=== PATIENT | female | born 1950 | race Caucasian/White ===

== ENCOUNTER → 2016-05-30 | Outpatient (CLI) | payer OTHER, MEDICAID ==
[~2016-05-30] MED LIST: ACET500T2 OR; ADV250INH INH; ALBU0.63 IN; ALBU17IN INH; AMIT25TA2 OR; ASPI81TA45 OR; CALCCHW12; CARA1TAB2 PO; CYMB60CA3 PO; DULE200A IN; DULO30CA PO; E-Z PAQUE 60% w/v SUSP 355ML BOTTLE As Ordered ONE; E-Z-GAS II EFFERVESCENT PACKET (SODIUM BICARB./CITRIC ACID/SIMETHICONE) As Ordered ONE; E-Z-HD 98% w/w 340GM SUSP BTL As Ordered ONE; INHALER; LEVO500T32 PO; LIDO3CRE14 TOP; METO25TA2 OR; MIRA3350 PO; MIRALEX; NEUR100C OR; OMEP20TA7 OR; PANT40TA2 PO; PLAV75TA2 OR; PRIL20CA; RALO1TAB PO; RAMI25CA OR; RANITAB PO; RISE30TA; SIMV40TA2 PO; SOMA350T PO; SYMB80AE INH; TIZA4CAP PO; TIZA4TAB OR; TRAM50TA2; TRAM50TA2 OR; TRAZ50TA4 PO; VENL75TA2; VICO5TAB PO; VITA200028 PO; VOLT1GEL EX; ZOLO20CO PO; [UNRECOGNIZED DRUG - OTHER] INH; biofreeze TOP; spiriva INH
--- NOTE | 2016-05-30 16:09 | REP ---
ESOPHAGRAM: The procedure was performed under the direct supervision of Dr. Matthews. The images were reviewed with Dr. Matthews. . A single view PA chest x-ray is submitted as a capacity management specialist film. There is no change compared to a previous chest x-ray performed on 07/25/2014. Liquid barium was administered in the erect and prone oblique positions. During the oral and pharyngeal stage of deglutition there is penetration. During esophageal transport there are tertiary waves demonstrated. The esophagus is torturous /foreshortened due to marked kyphosis. There is no evidence of esophagitis, stricture, or mucosal ring. There is a hiatal hernia present. There is gastroesophageal reflux demonstrated to the level of the paty. IMPRESSION: 1. There is laryngeal penetration. 2. The esophagus is torturous/foreshortened due to marked kyphosis. 3. Esophageal dysmotility. 4. There is a hiatal hernia present. There is gastroesophageal reflux demonstrated to the level of the paty. 1 minute 27 seconds of fluoroscopic time was utilized for this procedure. Reviewed by EVY Calderon 05/30/2016 05:00 PEdited and Signed by Stefano Matthews MD 05/31/2016 03:34 P
== END ==
LOC: M RAD 08:21
PROVIDERS: ATTEND Otolaryngology
DX: K22.4 Dyskinesia of esophagus (principal); K44.9 Diaphragmatic hernia without obstruction or gangrene; K21.9 Gastro-esophageal reflux disease without esophagitis

== ENCOUNTER → 2016-06-16 | Day surgery (SDC) | payer OTHER, MEDICAID ==
[~2016-06-16] VITALS: Ht 152.4 cm; Wt 39.0 kg
[~2016-06-16] MED LIST changes: +ALTA1CAP2 PO; +ASPI81TA85 PO; +DESFLURANE 240 ML INHALANT As Ordered ONE; -E-Z PAQUE 60% w/v SUSP 355ML BOTTLE As Ordered ONE; -E-Z-GAS II EFFERVESCENT PACKET (SODIUM BICARB./CITRIC ACID/SIMETHICONE) As Ordered ONE; -E-Z-HD 98% w/w 340GM SUSP BTL As Ordered ONE; +EPINEPHrine 1MG/ML INJ 30ML MD-VIAL As Ordered ONE; +GLYCOPYRROLATE INJ 0.2 MG/ML 2 ML VIAL As Ordered ONE; +LIDOCAINE 2% INJ 100 MG/5 ML SDV (FOR ANES.) As Ordered ONE; +LIDOCAINE W/EPINEPHRINE 1% 20ML VIAL As Ordered ONE; +LR 1,000 ML IV SCH; +MEPERIDINE INJ 25 MG/ML VIAL (J2175) IV PRN; +METO25TA74 PO; +METOCLOPRAMIDE INJ 10MG/2ML VIAL (J2765) As Ordered ONE; +METOCLOPRAMIDE INJ 10MG/2ML VIAL (J2765) IV PRN; +MIDAZOLAM INJ 2 MG/2 ML VIAL (J2250) As Ordered ONE; +NEOSTIGMINE 1MG/ML 5 ML SYRINGE (J2710) As Ordered ONE; +ONDANSETRON 4MG/2ML VIAL (J2405) As Ordered ONE; +ONDANSETRON 4MG/2ML VIAL (J2405) IV PRN; +OXYMETAZOLINE NASAL SPRAY (AFRIN) As Ordered ONE; +PERCOCET 5MG/325MG TAB PO PRN; +PROPOFOL 200 MG/20 ML VIAL As Ordered ONE; +ROCURONIUM BROMIDE 50 MG/5 ML VIAL As Ordered ONE; +TIZA4CAP3 PO; +TRAM50TA2 PO; +acetaminophen PO; +dexameTHASONE 4 MG/ML 1ML VIAL (J1100) IV ONE; +ePHEDrine SULFATE 25 MG/5 ML(5MG/ML) SYRINGE As Ordered ONE; +fentaNYL 100 MCG/2 ML INJECTION (J3010) As Ordered ONE; +fentaNYL 100 MCG/2 ML INJECTION (J3010) IV PRN
[2016-06-16 14:50] VITALS: BP 119/55
--- NOTE | 2016-06-21 06:03 | RO ---
DATE OF PROCEDURE: 06/16/2016 PREOPERATIVE DIAGNOSIS: Fullness of the left oropharynx. POSTOPERATIVE DIAGNOSIS: Fullness of the left oropharynx. PROCEDURE PERFORMED: Direct laryngoscopy with biopsy of the left oropharynx. SURGEON: Dr. Derrick Justin DESPATCHING AND RECEIVING CLERK: ANESTHESIA: General. CLINICAL PREAMBLE: This 65-year-old woman presented to the office with history of significant weight loss as well as abnormal CT scan of the neck showing fullness of the left oropharynx. Management options including biopsy of the left oropharynx have been discussed. Patient understood and consented to the procedure. DESCRIPTION OF PROCEDURE: Patient was identified in preoperative holding and brought to the operating room in stable condition. In supine position on the operating table, patient received general anesthesia followed by orotracheal intubation without incident. Due to significant kyphosis, patient had multilayer of bed sheets done at headrest to ensure proper support for the neck. A decision was made to perform direct laryngoscopy without the suspension portion. Bimanual palpation of the oral tongue, base of tongue, buccal mucosa, posterior and lateral pharyngeal wall showed no discrete nodule. The upper alveolus was protected using wet 4 x 4 sponge. The Dedo-Pilling laryngoscope was introduced into the oral cavity. Visualization of the mucosa of the oral cavity, oropharynx, hypopharynx, supraglottis, pyriform sinuses, and the glottis showed no evidence of mucosal ulceration. Redundant mucosa was noted over the left oropharyngeal area. Biopsy was performed of the left oropharynx. The specimens were sent to pathology in formalin solution. Hemostasis was achieved cottonoid pledgets soaked in 1:1000 epinephrine. Complete hemostasis was observed at the end of the case. Estimated blood loss was less than 1 mL. Sponge and instrument counts were correct at the end of the procedure. No complication was encountered. General anesthesia was reversed, and patient was extubated and brought to the recovery room in stable condition.
== END | disposition home or self-care (01) ==
LOC: M SDC 11:11
PROVIDERS: ATTEND Otolaryngology
DX: R22.1 Localized swelling, mass and lump, neck (principal); R63.4 Abnormal weight loss; R93.3 Abnormal findings on diagnostic imaging of other parts of digestive tract; J31.0 Chronic rhinitis; R13.10 Dysphagia, unspecified; K21.9 Gastro-esophageal reflux disease without esophagitis; E66.9 Obesity, unspecified; I25.2 Old myocardial infarction; I10 Essential (primary) hypertension; K59.00 Constipation, unspecified; D64.9 Anemia, unspecified; R29.898 Other symptoms and signs involving the musculoskeletal system; J44.9 Chronic obstructive pulmonary disease, unspecified; M81.0 Age-related osteoporosis without current pathological fracture; R06.83 Snoring; Z79.899 Other long term (current) drug therapy; Z79.82 Long term (current) use of aspirin; Z90.710 Acquired absence of both cervix and uterus
CPT/HCPCS: 31535; 88305; 96374; J1100; J2250; J2405; J2710; J2765; J3010

== ENCOUNTER → 2016-08-16 | Outpatient (CLI) | payer OTHER, MEDICAID ==
[~2016-08-16] MED LIST changes: -DESFLURANE 240 ML INHALANT As Ordered ONE; +DOCQ100C PO; -EPINEPHrine 1MG/ML INJ 30ML MD-VIAL As Ordered ONE; +EVIS1TAB PO; -GLYCOPYRROLATE INJ 0.2 MG/ML 2 ML VIAL As Ordered ONE; -LIDOCAINE 2% INJ 100 MG/5 ML SDV (FOR ANES.) As Ordered ONE; -LIDOCAINE W/EPINEPHRINE 1% 20ML VIAL As Ordered ONE; +LINZ145C PO; -LR 1,000 ML IV SCH; -MEPERIDINE INJ 25 MG/ML VIAL (J2175) IV PRN; +METO-346 PO; -METOCLOPRAMIDE INJ 10MG/2ML VIAL (J2765) As Ordered ONE; -METOCLOPRAMIDE INJ 10MG/2ML VIAL (J2765) IV PRN; -MIDAZOLAM INJ 2 MG/2 ML VIAL (J2250) As Ordered ONE; -NEOSTIGMINE 1MG/ML 5 ML SYRINGE (J2710) As Ordered ONE; -ONDANSETRON 4MG/2ML VIAL (J2405) As Ordered ONE; -ONDANSETRON 4MG/2ML VIAL (J2405) IV PRN; -OXYMETAZOLINE NASAL SPRAY (AFRIN) As Ordered ONE; -PERCOCET 5MG/325MG TAB PO PRN; +POLY33502 PO; -PROPOFOL 200 MG/20 ML VIAL As Ordered ONE; -ROCURONIUM BROMIDE 50 MG/5 ML VIAL As Ordered ONE; +TRAZ100T4 PO; -dexameTHASONE 4 MG/ML 1ML VIAL (J1100) IV ONE; -ePHEDrine SULFATE 25 MG/5 ML(5MG/ML) SYRINGE As Ordered ONE; -fentaNYL 100 MCG/2 ML INJECTION (J3010) As Ordered ONE; -fentaNYL 100 MCG/2 ML INJECTION (J3010) IV PRN
--- NOTE | 2016-09-02 00:32 | ECWPNPC ---
PATIENT NAME: MARY PEÑA : 1950 GENDER: FEMALE VISIT DATE: 08/16/2016 DISCHARGE DATE: 08/16/16 0947 VISIT LOCKED DATE TIME: PHYSICIAN: LISA FULLER RESOURCE: LISA UFLLER REASON FOR APPOINTMENT 1. BACK HISTORY OF PRESENT ILLNESS HISTORY OF PRESENT ILLNESS: PAIN THE PATIENT DESCRIBES THE PAIN... FALL RISK SCREENING: SCREENING :NO FALLS IN THE PAST YEAR TODAY'S VISIT: NOTES: RATES PAIN LEVEL TODAY 10. IS S/P RIGHT SIJ INJECTION COMPLETED ON 03/01/16. THIS WAS VERY HELPFUL AND PAIN WAS MARKEDLY IMPROVED X5 MONTHS. IS NOW HAVING PAIN IN RIGHT HIP AND BUTTUCK AND ALSO IN SHOULDER BLADES AND ACROSS SHOULDERS. . CURRENT MEDICATIONS TAKING CYMBALTA 60 MG CAPSULE DELAYED RELEASE PARTICLES 1 CAPSULE ORALLY ONCE A DAY TAKING METOPROLOL SUCCINATE ER 25 MG TABLET EXTENDED RELEASE 24 HOUR 1/2 TABLET ORALLY BID TAKING PANTOPRAZOLE SODIUM 40 MG TABLET DELAYED RELEASE 1 TABLET ORALLY ONCE A DAY TAKING RALOXIFENE HCL 60 MG TABLET 1 TABLET ORALLY ONCE A DAY TAKING RAMIPRIL 2.5 MG CAPSULE 1 CAPSULE ORALLY ONCE A DAY TAKING ASPIR-81 81 MG TABLET DELAYED RELEASE 1 TABLET ORALLY ONCE A DAY TAKING TRAMADOL HCL 50 MG TABLET 1-2 TABLET NEEDED ORALLY EVERY 6 HRS PRN PAIN MDD =6 TAKING LINZESS 145 MCG CAPSULE 1 CAPSULE ORALLY ONCE A DAY TAKING TIZANIDINE HCL 4 MG TABLET 1/2 -1 TABLET NEEDED ORALLY EVERY 6 HOURS NEED FOR SPASM TAKING TRAZODONE HCL 100 MG TABLET 1 TABLET AT BEDTIME ORALLY ONCE A DAY TAKING MIRALAX - POWDER 1 PACKET MIXED WITH 8 OUNCES OF FLUID ORALLY BID TAKING VITAMIN D 1000 UNIT TABLET 1 TABLET ORALLY BID NOT-TAKING ERGOCALCIFEROL 03369 UNIT CAPSULE 1 CAPSULE ORALLY WEEKLY, NOTES: 03/01 4AM NOT-TAKING CARAFATE 1 GM TABLET 1 TABLET ON AN EMPTY STOMACH ORALLY TWICE A DAY, NOTES: 03/01 4AM NOT-TAKING COLACE 100 MG CAPSULE 1 CAPSULE NEEDED ORALLY ONCE A DAY, NOTES: 03/01 4AM NOT-TAKING STIOLTO RESPIMAT 2.5-2.5 MCG/ACT AEROSOL SOLUTION 2 PUFFS INHALATION ONCE A DAY NOT-TAKING DULERA 200-5 MCG/ACT AEROSOL 2 PUFFS INHALATION TWICE A DAY, NOTES: 0400 NOT-TAKING SIMVASTATIN 20 MG TABLET 1 TABLET IN THE EVENING ORALLY ONCE A DAY, NOTES: 07/06/15 MEDICATION LIST REVIEWED AND RECONCILED WITH THE PATIENT PAST MEDICAL HISTORY GERD OSTEOPOROSIS HYPERLIPID CHRONIC PAIN CONSTIPATION ALLERGIES N.K.D.A. REVIEW OF SYSTEMS FOLLOW-UP ROS: PSYCHOLOGY: SLEEP DISTURBANCE - CONTINUES TO HAVE DIFFICULTY WITH THIS AREA . REVIEWED BY: PROVIDER: LISA AMOR . CONSTITUTIONAL: ANY CHANGE IN YOUR MEDICAL CONDITION? NO . CHILLS NO . FEVER NO . INFECTION: DO YOU HAVE NEW INFECTIONS? NO . DO YOU HAVE HISTORY OF MRSA? NO . MUSCULOSKELETAL: ANY NEW PATTERNS OF PAIN OR NUMBNESS? NO . GASTROENTEROLOGY: GENERAL DR VERDUZCO TO DO UPPER AND LOWER ENDOSCOPY ON 08/19/16 . ANY NEW CHANGE IN BOWEL CONTROL? YES, CONSTIPATION . GENITOURINARY: ANY NEW CHANGE IN BLADDER CONTROL? NO . IS THERE A CHANCE YOU COULD BE ? NO . HEMATOLOGY/LYMPH: DO YOU TAKE ANY BLOOD THINNERS? (FOR EXAMPLE- COUMADIN, PLAVIX, AGGRENOX, PLATEL, PRADAXA, OR XARELTO) NO . WHEN WAS YOUR LAST DOSE? DATE: TIME: . NEUROLOGY: HAVE YOU FALLEN IN THE PAST 6 MONTHS? YES . ANY NEW EXTREMITY NUMBNESS OR WEAKNESS? NO . CARDIOLOGY: DO YOU HAVE A PACEMAKER OR DEFIBRILLATOR? NO . RESPIRATORY: HAVE YOU BEEN SICK IN THE PAST WEEK? NO . FEVER NO . FLU LIKE SYMPTOMS? NO . COUGH NO . INTEGUMENTARY: DO YOU HAVE ANY RASHES OR OPEN SORES? NO . ALLERGIC/IMMUNO: ARE YOU ALLERGIC TO SHELLFISH OR IV DYE? NO . ANY NEW ALLERGIES? NO . PSYCHIATRIC: DO YOU HAVE THOUGHTS OF HURTING YOURSELF OR SOMEONE ELSE? NO . ARE YOU ABUSED, NEGLECTED, OR IN AN UNSAFE ENVIRONMENT? NO . ENDOCRINOLOGY: ARE YOU DIABETIC? NO . OTHER: DO YOU NEED ANY PRESCRIPTIONS? YES . IF YES, PLEASE LIST: TRAZODONE, TRAMADOL, AND TIZANIDINE . ANY NEW PROBLEMS WITH YOUR MEDICATIONS? NO . WHEN DID YOU LAST EAT? ____ . WHEN DID YOU LAST DRINK? ____ . WHAT DID YOU LAST DRINK? ____ . NAME OF PERSON DRIVING YOU HOME? ____ . DO YOU HAVE ANY OTHER QUESTIONS OR CONCERNS NO . ENT: DIFFICULTY SWALLOWING WAS SEEN BY DR PRAKASH - FOUND TO HAVE NON-CANCEROUS MASS IN THROAT.. IS HAVING SOME CHOKING . VITAL SIGNS WT 92.4 LBS, HT 56 IN, BMI 20.71 INDEX, BP 111/69 MM HG, HR 66 /MIN, RR 16 /MIN, TEMP 99.3 F, OXYGEN SAT % 96%, NA INITIALS TL 0856, REVIEWED BY: JOSE LUIS. EXAMINATION GENERAL EXAMINATION: GENERAL APPEARANCE:SIGNIFICANT HEIGHT LOSS. PALE. PSYCHALERT , ORIENTED X 3 , APPROPRIATE MOOD AND AFFECT . CHEST:SIGNIFICANT THORACIC KYPHOSIS. LUNGS:CLEAR TO AUSCULTATION BILATERALLY, INTERMITTANT COUGH, , DIMINISHED BREATH SOUNDS AT BASES, NO WHEEZES OR CRACKLES. MUSCULOSKELETAL:EXQUISITE TENDERNESS OVER RIGHT SIJ. TRIGGER POINTS AND TIGHT FIBROUS BANDS OVER SHOULDER GIRDLE AND AT BASE OF CERVICAL SPINE. RISES EASILY TO STANDING POSITION. POSTURE STOOPED. GAIT WIDE BASED, ANTALGIC. EXTREMITIES:NO EDEMA. ASSESSMENTS MYALGIA - M79.1 (PRIMARY) SACROILIITIS, NOT ELSEWHERE CLASSIFIED - M46.1 TREATMENT MYALGIA REFILL TRAMADOL HCL TABLET, 50 MG, 1-2 TABLET NEEDED, ORALLY, EVERY 6 HRS PRN PAIN MDD =6, 30 DAY(S), 180, REFILLS 3 REFILL TIZANIDINE HCL TABLET, 4 MG, 1/2 -1 TABLET NEEDED, ORALLY, EVERY 6 HOURS NEED FOR SPASM, 30 DAY(S), 85, REFILLS 5 REFILL TRAZODONE HCL TABLET, 100 MG, 1 TABLET AT BEDTIME, ORALLY, ONCE A DAY, 30 DAY(S), 30, REFILLS 5 TRIGGER POINT 3 + LISA ROBLES 08/16/2016 9:43:51 AM > TRIGGER POINTS - NECK AND SHOULDER AREAS NOTES: CONTINUE CURRRENT MEDS. PROCEDURE CODES FA211 ESTABILISHED PATIENT [facility] CHARGE DISPOSITION & COMMUNICATION FOLLOW UP AFTER INJECTION (REASON: TRIGGER POINTS - NECK AND SHOULDER AREAS) ELECTRONICALLY SIGNED BY BRITTANIE DUNAWAY ON 09/01/2016 AT 05:43 PM EDT DISCLAIMER : THIS IS A VISIT SUMMARY EXTRACTED FROM THE [email or web address] CHART. IT IS NOT A COPY OF THE [email or web address] PROGRESS NOTE. RIZWANA
== END ==
LOC: M PAIN 09:00
PROVIDERS: ATTEND Nurse Practitioner Family
DX: M79.1 Myalgia (principal); M46.1 Sacroiliitis, not elsewhere classified; K21.9 Gastro-esophageal reflux disease without esophagitis; M85.80 Other specified disorders of bone density and structure, unspecified site; E78.5 Hyperlipidemia, unspecified; K59.00 Constipation, unspecified; Z79.82 Long term (current) use of aspirin; Z79.891 Long term (current) use of opiate analgesic; Z79.899 Other long term (current) drug therapy

== ENCOUNTER → 2016-08-19 | Outpatient (CLI) | payer OTHER, MEDICAID ==
[~2016-08-19] VITALS: Ht 137.2 cm; Wt 41.7 kg
[~2016-08-19] MED LIST changes: +LIDOCAINE 2% INJ 100 MG/5 ML SDV (FOR ANES.) As Ordered ONE; +NS 1,000 ML IV ONE; +PROPOFOL 200 MG/20 ML VIAL As Ordered ONE; +fentaNYL 100 MCG/2 ML INJECTION (J3010) As Ordered ONE
--- NOTE | 2016-08-19 10:05 | ROOR ---
Patient Name: Padmini Devine Procedure Date: 08/19/2016 9:20 AM Date of : 1950 Age: 66 Room: [facility] Gender: Female Note Status: Finalized Procedure: Upper GI endoscopy Indications: Dysphagia Providers: Jerry GUPTA MD Referring MD: Edouard Dahl MD Requesting Provider: Medicines: Monitored Anesthesia Care Complications: No immediate complications. Procedure: Pre-Anesthesia Assessment: - The heart rate, respiratory rate, oxygen saturations, blood pressure, adequacy of pulmonary ventilation, and response to care were monitored throughout the procedure. The Endoscope was introduced through the mouth, and advanced to the second part of duodenum. The upper GI endoscopy was accomplished without difficulty. The patient tolerated the procedure well. Findings: There were esophageal mucosal changes consistent with long-segment Duong's esophagus present in the lower third of the esophagus. The maximum longitudinal extent of these mucosal changes was 4 cm in length. Mucosa was biopsied with a cold forceps for histology randomly at intervals of 1 cm in the lower third of the esophagus. A total of 4 specimen bottles were sent to pathology. The examined esophagus was significantly tortuous. No endoscopic abnormality was evident in the esophagus to explain the patient's complaint of dysphagia. It was decided, however, to proceed with dilation at the cricopharyngeus. The scope was withdrawn. Dilation was performed with a Gabriel dilator with no resistance at 54 Fr. The dilation site was examined following endoscope reinsertion and showed no change. A large hiatal hernia was present. The exam of the stomach was otherwise normal. The examined duodenum was normal. Impression: - Esophageal mucosal changes consistent with 4 cm long-segment Duong's esophagus (from 28 cm to 23 cm). Smooth, without inflammation or nodularity. Biopsied. - Tortuous esophagus. Large hiatal hernia with shortened esophagus. GE junction at 28 cm. - Normal examined duodenum. - No endoscopic esophageal abnormality to explain patient's dysphagia. Esophagus dilated cricopharyngeus with 54 F gabriel dilator. Recommendation: - Use Prilosec (omeprazole) 40 mg PO BID indefinitely. - Telephone endoscopist for pathology results in 2 weeks. - Repeat upper endoscopy in 3 years for surveillance. Jerry Gupta MD Jerry GUPTA MD 08/19/2016 10:04:59 AM This report has been signed electronically. Number of Addenda: 0 Note Initiated On: 08/19/2016 9:20 AM Estimated Blood Loss: Estimated blood loss: none.
--- NOTE | 2016-08-19 10:09 | ROOR ---
Patient Name: Padmini Devine Procedure Date: 08/19/2016 9:21 AM Date of : 1950 Age: 66 Room: [facility] Gender: Female Note Status: Finalized Procedure: Colonoscopy Indications: Weight loss Providers: Jerry GUPTA MD Referring MD: Edouard Dahl MD Requesting Provider: Medicines: Monitored Anesthesia Care Complications: No immediate complications. Procedure: Pre-Anesthesia Assessment: - The heart rate, respiratory rate, oxygen saturations, blood pressure, adequacy of pulmonary ventilation, and response to care were monitored throughout the procedure. The Colonoscope was introduced through the anus and advanced to the terminal ileum, with identification of the appendiceal orifice and IC valve. The colonoscopy was performed without difficulty. The patient tolerated the procedure well. The quality of the bowel preparation was unsatisfactory. Findings: The perianal and digital rectal examinations were normal. The exam was otherwise normal throughout the examined colon. Impression: - Preparation of the colon was unsatisfactory.--several areas are inadequately visualized to r/o small polyps, however no major lesions seen, no large polyps or tumors seen in the entire colon. - No specimens collected. Recommendation: - Repeat colonoscopy in 1 year because the bowel preparation was suboptimal. Jerry Gupta MD Jerry GUPTA MD 08/19/2016 10:09:08 AM This report has been signed electronically. Number of Addenda: 0 Note Initiated On: 08/19/2016 9:21 AM Estimated Blood Loss: Estimated blood loss: none.
[2016-08-19 10:30] VITALS: BP 128/67
== END | disposition home or self-care (01) ==
LOC: M OPP 08:26
PROVIDERS: ATTEND Internal Medicine Gastroenterology
DX: R63.4 Abnormal weight loss (principal); R13.10 Dysphagia, unspecified; K22.8 Other specified diseases of esophagus; Q39.9 Congenital malformation of esophagus, unspecified; K44.9 Diaphragmatic hernia without obstruction or gangrene; R12 Heartburn; I25.2 Old myocardial infarction; M81.0 Age-related osteoporosis without current pathological fracture; Z78.0 Asymptomatic menopausal state; J44.9 Chronic obstructive pulmonary disease, unspecified; I25.10 Atherosclerotic heart disease of native coronary artery without angina pectoris; F17.210 Nicotine dependence, cigarettes, uncomplicated; Z79.82 Long term (current) use of aspirin; Z79.899 Other long term (current) drug therapy; Z80.9 Family history of malignant neoplasm, unspecified
CPT/HCPCS: 43239; 43450; 45378; 88305; J3010

== ENCOUNTER → 2016-08-24 | Outpatient (CLI) | payer OTHER, MEDICAID ==
[~2016-08-24] MED LIST changes: +BUPIVACAINE HCL 0.25% 10 ML VIAL As Ordered ONE; +BUPIVACAINE HCL 0.25% 30 ML VIAL As Ordered ONE; -LIDOCAINE 2% INJ 100 MG/5 ML SDV (FOR ANES.) As Ordered ONE; -NS 1,000 ML IV ONE; -PROPOFOL 200 MG/20 ML VIAL As Ordered ONE; +TRIAMCINOLONE ACETONIDE SUSP 40 MG/ML VIAL (J3301) As Ordered ONE; -fentaNYL 100 MCG/2 ML INJECTION (J3010) As Ordered ONE; +oxyCODONE 5MG TAB As Ordered ONE
--- NOTE | 2016-09-01 23:53 | ECWPNPC ---
PATIENT NAME: MARY PEÑA : 1950 GENDER: FEMALE VISIT DATE: 08/24/2016 DISCHARGE DATE: 08/24/16 1423 VISIT LOCKED DATE TIME: PHYSICIAN: MATA JOHNS RESOURCE: MATA JOHNS REASON FOR APPOINTMENT 1. NECK AND SHOULDER HISTORY OF PRESENT ILLNESS HISTORY OF PRESENT ILLNESS: PAIN THE PATIENT DESCRIBES THE PAIN... FALL RISK SCREENING: SCREENING :NO FALLS IN THE PAST YEAR CURRENT MEDICATIONS TAKING CYMBALTA 60 MG CAPSULE DELAYED RELEASE PARTICLES 1 CAPSULE ORALLY ONCE A DAY, NOTES: 08/24/16529 TAKING METOPROLOL SUCCINATE ER 25 MG TABLET EXTENDED RELEASE 24 HOUR 1/2 TABLET ORALLY BID, NOTES: 08/24/16529 TAKING RALOXIFENE HCL 60 MG TABLET 1 TABLET ORALLY ONCE A DAY, NOTES: 08/24/16529 TAKING RAMIPRIL 2.5 MG CAPSULE 1 CAPSULE ORALLY ONCE A DAY, NOTES: 08/24/16529 TAKING ASPIR-81 81 MG TABLET DELAYED RELEASE 1 TABLET ORALLY ONCE A DAY, NOTES: 08/24/16529 TAKING LINZESS 145 MCG CAPSULE 1 CAPSULE ORALLY ONCE A DAY, NOTES: 08/22/16 TAKING MIRALAX - POWDER 1 PACKET MIXED WITH 8 OUNCES OF FLUID ORALLY BID, NOTES: 08/24/16529 TAKING VITAMIN D 1000 UNIT TABLET 1 TABLET ORALLY BID, NOTES: 08/24/16529 TAKING TRAMADOL HCL 50 MG TABLET 1-2 TABLET NEEDED ORALLY EVERY 6 HRS PRN PAIN MDD =6, NOTES: 08/24/1674100 TAKING TIZANIDINE HCL 4 MG TABLET 1/2 -1 TABLET NEEDED ORALLY EVERY 6 HOURS NEED FOR SPASM, NOTES: 08/24/16529 TAKING TRAZODONE HCL 100 MG TABLET 1 TABLET AT BEDTIME ORALLY ONCE A DAY, NOTES: 08/23/16 2100 TAKING OMEPRAZOLE 40 MG CAPSULE DELAYED RELEASE 1 CAPSULE ORALLY BID, NOTES: 08/24/16529 NOT-TAKING ERGOCALCIFEROL 99635 UNIT CAPSULE 1 CAPSULE ORALLY WEEKLY, NOTES: 03/01 4AM NOT-TAKING CARAFATE 1 GM TABLET 1 TABLET ON AN EMPTY STOMACH ORALLY TWICE A DAY, NOTES: 03/01 4AM NOT-TAKING COLACE 100 MG CAPSULE 1 CAPSULE NEEDED ORALLY ONCE A DAY, NOTES: 03/01 4AM NOT-TAKING STIOLTO RESPIMAT 2.5-2.5 MCG/ACT AEROSOL SOLUTION 2 PUFFS INHALATION ONCE A DAY NOT-TAKING DULERA 200-5 MCG/ACT AEROSOL 2 PUFFS INHALATION TWICE A DAY, NOTES: 0400 NOT-TAKING SIMVASTATIN 20 MG TABLET 1 TABLET IN THE EVENING ORALLY ONCE A DAY, NOTES: 07/06/15 DISCONTINUED PANTOPRAZOLE SODIUM 40 MG TABLET DELAYED RELEASE 1 TABLET ORALLY ONCE A DAY MEDICATION LIST REVIEWED AND RECONCILED WITH THE PATIENT PAST MEDICAL HISTORY GERD OSTEOPOROSIS HYPERLIPID CHRONIC PAIN CONSTIPATION ALLERGIES N.K.D.A. REVIEW OF SYSTEMS REVIEWED BY: PROVIDER: . CONSTITUTIONAL: ANY CHANGE IN YOUR MEDICAL CONDITION? NO . CHILLS NO . FEVER NO . INFECTION: DO YOU HAVE NEW INFECTIONS? NO . DO YOU HAVE HISTORY OF MRSA? NO . MUSCULOSKELETAL: ANY NEW PATTERNS OF PAIN OR NUMBNESS? NO . GASTROENTEROLOGY: ANY NEW CHANGE IN BOWEL CONTROL? YES, ON MIRALAX/ JUST HAD SCOPE DONE AND WILL FU WITH ESTATE PLANNING PAR[place]GAL . GENITOURINARY: ANY NEW CHANGE IN BLADDER CONTROL? NO . IS THERE A CHANCE YOU COULD BE ? NO . HEMATOLOGY/LYMPH: DO YOU TAKE ANY BLOOD THINNERS? (FOR EXAMPLE- COUMADIN, PLAVIX, AGGRENOX, PLATEL, PRADAXA, OR XARELTO) NO . WHEN WAS YOUR LAST DOSE? DATE: TIME: . NEUROLOGY: HAVE YOU FALLEN IN THE PAST 6 MONTHS? NO . ANY NEW EXTREMITY NUMBNESS OR WEAKNESS? NO . CARDIOLOGY: DO YOU HAVE A PACEMAKER OR DEFIBRILLATOR? NO . RESPIRATORY: HAVE YOU BEEN SICK IN THE PAST WEEK? NO . FEVER NO . FLU LIKE SYMPTOMS? NO . COUGH NO . INTEGUMENTARY: DO YOU HAVE ANY RASHES OR OPEN SORES? NO . ALLERGIC/IMMUNO: ARE YOU ALLERGIC TO SHELLFISH OR IV DYE? NO . ANY NEW ALLERGIES? NO . PSYCHIATRIC: DO YOU HAVE THOUGHTS OF HURTING YOURSELF OR SOMEONE ELSE? NO . ARE YOU ABUSED, NEGLECTED, OR IN AN UNSAFE ENVIRONMENT? NO . ENDOCRINOLOGY: ARE YOU DIABETIC? NO . OTHER: DO YOU NEED ANY PRESCRIPTIONS? NO . IF YES, PLEASE LIST: ____ . ANY NEW PROBLEMS WITH YOUR MEDICATIONS? NO . WHEN DID YOU LAST EAT? 0700 TODAY . WHEN DID YOU LAST DRINK? 1000 AM . WHAT DID YOU LAST DRINK? COFFEE . NAME OF PERSON DRIVING YOU HOME? GARETH . DO YOU HAVE ANY OTHER QUESTIONS OR CONCERNS NO . VITAL SIGNS WT 91.2 LBS, HT 56 IN, BMI 20.44 INDEX, BP 129/71 MM HG, HR 65 /MIN, RR 16 /MIN, TEMP 99.1 F, OXYGEN SAT % 96%, NA INITIALS TL 1301. ASSESSMENTS MYALGIA - M79.1 (PRIMARY) PROCEDURES PN TRIGGER POINT INJECTION WITH STEROIDS PRE PROCEDURE DIAGNOSIS 1. MYALGIA 2. PAIN AT BILATERAL SHOULDER AREA AND BILATERAL THORACIC AREA POST PROCEDURE DIAGNOSIS 1. MYALGIA 2. PAIN AT BILATERAL SHOULDER AREA AND BILATERAL THORACIC AREA PROCEDURE TRIGGER POINT INJECTION AT BILATERAL SHOULDER AREA AND BILATERAL THORACIC AREA SURGEON DR. MATA JOHNS BAFFLE MOUNTER NONE ANESTHESIA LOCAL PRE PROCEDURE NOTE THE PATIENT HAS A HISTORY OF CHRONIC PAIN AT THE RIGHT AND LEFT SHOULDER AREA AND RIGHT AND LEFT THORACIC AREA. I EVALUATE THE PATIENT AND REVIEWED THE CHART. THERE IS EVIDENCE OF BANDS OF TISSUE WITH RESTRICTION OF MOVEMENT AND PRESENCE OF TRIGGER POINT AT THE AFFECTED AREA. I WENT OVER THE RISKS, ALTERNATIVES, AND BENEFITS ASSOCIATED WITH THIS PROCEDURE. THE PATIENT WOULD LIKE TO PROCEED AND GIVE CONSENT TO PERFORMED THE PROCEDURE. THE PATIENT DENIES UNEXPLAINABLE WEIGHT LOSS, FEVER, CHILLS, OR NEW CHANGES IN URINARY OR BOWEL CONTROL DESCRIPTION OF PROCEDURE THE PATIENT WAS BROUGHT TO THE PROCEDURE ROOM AND PLACED IN THE SITTING POSITION. THE AREA WAS CLEANED WITH ALCOHOL. THE PROCEDURE WAS DONE USING ASEPTIC STERILE TECHNIQUE. I CHECKED LATERALITY AND THE LEVEL WHERE THE PROCEDURE WAS GOING TO BE PERFORMED WITH THE PATIENT AND THE SUPPORTING STAFF AT THE MOMENT OF THE TIME OUT IN THE PROCEDURE ROOM. USING A 25-GAUGE NEEDLE, TRIGGER POINTS WERE INJECTED AT THE RIGHT AND LEFT SHOULDER AREA AND RIGHT AND LEFT THORACIC AREA WITH A TOTAL OF 40 ML OF BUPIVACAINE 0.25% AND KENALOG 40 MG. THERE WAS NO EVIDENCE OF BLOOD, PARESTHESIA OR CEREBROSPINAL FLUID DURING THE PROCEDURE. THE PATIENT WAS SENT TO THE RECOVERY ROOM. THE PATIENT WAS MOVING THE EXTREMITIES AND DOING WELL. THERE WAS NO COMPLICATION DURING THE PROCEDURE POST PROCEDURE NOTE THE PATIENT WILL BE SEEN IN A FOLLOW UP IN THE NEXT FEW WEEKS. INSTRUCTIONS WERE GIVEN, QUESTIONS WERE ANSWERED, AND THE PATIENT EXPRESSED UNDERSTANDING AND AGREES WITH THE PLAN. I, MICHELLE CABRAL, DOCUMENTED THE ABOVE INFORMATION ACTING A SCRIBE FOR DR. JOHNS. I HAVE REVIEWED THE ABOVE DOCUMENT, WRITTEN BY MICHELLE MARTE AND I VERIFY THAT IT IS ACCURATE PROCEDURE CODES 63454 INJECT TRIGGER POINTS 3/> DISPOSITION & COMMUNICATION FOLLOW UP 3 WEEKS ELECTRONICALLY SIGNED BY MATA JOHNS MD ON 09/01/2016 AT 12:02 PM EDT DISCLAIMER : THIS IS A VISIT SUMMARY EXTRACTED FROM THE [employer] CHART. IT IS NOT A COPY OF THE [employer] PROGRESS NOTE. RIZWANA
== END ==
LOC: M PAIN 13:00
PROVIDERS: ATTEND Anesthesiology
DX: G89.29 Other chronic pain (principal); M79.1 Myalgia; M25.511 Pain in right shoulder; M25.512 Pain in left shoulder; M54.6 Pain in thoracic spine; K21.9 Gastro-esophageal reflux disease without esophagitis; M19.90 Unspecified osteoarthritis, unspecified site; E78.5 Hyperlipidemia, unspecified; Z79.82 Long term (current) use of aspirin; Z79.899 Other long term (current) drug therapy
CPT/HCPCS: 20553; J3301

== ENCOUNTER → 2016-08-29 | Outpatient (CLI) | payer OTHER, MEDICAID ==
[~2016-08-29] MED LIST changes: -BUPIVACAINE HCL 0.25% 10 ML VIAL As Ordered ONE; -BUPIVACAINE HCL 0.25% 30 ML VIAL As Ordered ONE; +GASTROGRAFIN SOLUTION 30ML (Q9963) As Ordered ONE; +ISOVUE-370 76% 100ML VIAL (Q9967) As Ordered ONE; -TRIAMCINOLONE ACETONIDE SUSP 40 MG/ML VIAL (J3301) As Ordered ONE; -oxyCODONE 5MG TAB As Ordered ONE
--- NOTE | 2016-08-30 04:41 | REP ---
Clinical: Abdominal pain and abnormal weight loss. Technique: Axial contrast enhanced images from the lung bases to the pubic symphysis using oral and 100 ml Isovue 370 intravenous contrast material with precontrast images of the abdomen as well as coronal and sagittal re-formations. Comparison: 01/19/2015. Findings: Lung bases are clear. Visualized heart and pericardium normal. Moderate hiatal hernia identified at the gastroesophageal junction. Liver, spleen, pancreas, bilateral adrenal glands and kidneys are normal. The patient appears to be status post cholecystectomy. The enteric system is without obstruction or acute inflammatory process. This demonstrates normal bladder and evidence for prior hysterectomy. No pelvic fluid or ascites. No free air. No obvious adenopathy. Atherosclerotic changes to the vasculature noted without aneurysm or dissection. Evaluation of the musculoskeletal structures demonstrate compression fractures at T11, T12, L1, L2, L4, L5 of indeterminate age. Impression: 1. No obvious, significant acute intra-abdominal or pelvic pathology appreciated. 2. Chronic changes as described above. 3. Multiple compression deformities of the lower thoracic and lumbosacral spine of indeterminate age by at least partially chronic when compared to 2014. Signed by Conrado Trejo MD 08/30/2016 04:33 A
== END ==
LOC: M RAD 14:54
PROVIDERS: ATTEND Internal Medicine Gastroenterology
DX: R63.4 Abnormal weight loss (principal)
CPT/HCPCS: 74178; Q9963; Q9967

== ENCOUNTER → 2016-09-21 | Outpatient (CLI) | payer OTHER, MEDICAID ==
[~2016-09-21] MED LIST changes: -CARA1TAB2 PO; +CARA1TAB6 PO; -GASTROGRAFIN SOLUTION 30ML (Q9963) As Ordered ONE; -ISOVUE-370 76% 100ML VIAL (Q9967) As Ordered ONE; +LEVO500T3 PO; -LEVO500T32 PO; +METO1TAB32 PO; -METO25TA74 PO; +TRAZ-136 PO; -TRAZ100T4 PO; +TRAZ50TA11 PO; -TRAZ50TA4 PO
--- NOTE | 2016-10-15 01:23 | ECWPNPC ---
PATIENT NAME: MARY PEÑA : 1950 GENDER: FEMALE VISIT DATE: 09/21/2016 DISCHARGE DATE: 09/21/16 1051 VISIT LOCKED DATE TIME: PHYSICIAN: LISA FULLER RESOURCE: LISA FULLER REASON FOR APPOINTMENT 1. POST TPI HISTORY OF PRESENT ILLNESS HISTORY OF PRESENT ILLNESS: PAIN THE PATIENT DESCRIBES THE PAIN... FALL RISK SCREENING: SCREENING :NO FALLS IN THE PAST YEAR TODAY'S VISIT: NOTES: RATES PAIN TODAY 0/10. IS S/P TPI COMPLETED ON 08/20/16 TO BILATERAL AND SHOULDER REGION WITH 100% RELIEF OF PAIN. HAS BEEN SLEEPING WELL. . CURRENT MEDICATIONS TAKING CYMBALTA 60 MG CAPSULE DELAYED RELEASE PARTICLES 1 CAPSULE ORALLY ONCE A DAY, NOTES: 08/24/16529 TAKING METOPROLOL SUCCINATE ER 25 MG TABLET EXTENDED RELEASE 24 HOUR 1/2 TABLET ORALLY BID, NOTES: 08/24/16529 TAKING RALOXIFENE HCL 60 MG TABLET 1 TABLET ORALLY ONCE A DAY, NOTES: 08/24/16529 TAKING RAMIPRIL 2.5 MG CAPSULE 1 CAPSULE ORALLY ONCE A DAY, NOTES: 08/24/16529 TAKING ASPIR-81 81 MG TABLET DELAYED RELEASE 1 TABLET ORALLY ONCE A DAY, NOTES: 08/24/16529 TAKING LINZESS 145 MCG CAPSULE 1 CAPSULE ORALLY ONCE A DAY, NOTES: 08/22/16 TAKING MIRALAX - POWDER 1 PACKET MIXED WITH 8 OUNCES OF FLUID ORALLY BID, NOTES: 08/24/16529 TAKING VITAMIN D 1000 UNIT TABLET 1 TABLET ORALLY BID, NOTES: 08/24/16529 TAKING TRAMADOL HCL 50 MG TABLET 1-2 TABLET NEEDED ORALLY EVERY 6 HRS PRN PAIN MDD =6, NOTES: 08/24/1677767 TAKING TIZANIDINE HCL 4 MG TABLET 1/2 -1 TABLET NEEDED ORALLY EVERY 6 HOURS NEED FOR SPASM, NOTES: 08/24/16529 TAKING TRAZODONE HCL 100 MG TABLET 1 TABLET AT BEDTIME ORALLY ONCE A DAY, NOTES: 08/23/16 2100 TAKING OMEPRAZOLE 40 MG CAPSULE DELAYED RELEASE 1 CAPSULE ORALLY BID, NOTES: 08/24/16529 TAKING TRIAMCINOLONE ACETONIDE 0.025 % CREAM 1 APPLICATION TO AFFECTED AREA EXTERNALLY TWICE A DAY TAKING CLOTRIMAZOLE 1 % CREAM 1 APPLICATION TO AFFECTED AREA EXTERNALLY TWICE A DAY NOT-TAKING ERGOCALCIFEROL 87937 UNIT CAPSULE 1 CAPSULE ORALLY WEEKLY, NOTES: 03/01 4AM NOT-TAKING CARAFATE 1 GM TABLET 1 TABLET ON AN EMPTY STOMACH ORALLY TWICE A DAY, NOTES: 03/01 4AM NOT-TAKING COLACE 100 MG CAPSULE 1 CAPSULE NEEDED ORALLY ONCE A DAY, NOTES: 03/01 4AM NOT-TAKING STIOLTO RESPIMAT 2.5-2.5 MCG/ACT AEROSOL SOLUTION 2 PUFFS INHALATION ONCE A DAY NOT-TAKING DULERA 200-5 MCG/ACT AEROSOL 2 PUFFS INHALATION TWICE A DAY, NOTES: 0400 NOT-TAKING SIMVASTATIN 20 MG TABLET 1 TABLET IN THE EVENING ORALLY ONCE A DAY, NOTES: 07/06/15 MEDICATION LIST REVIEWED AND RECONCILED WITH THE PATIENT PAST MEDICAL HISTORY GERD OSTEOPOROSIS HYPERLIPID CHRONIC PAIN CONSTIPATION ALLERGIES N.K.D.A. SOCIAL HISTORY GENERAL: TOBACCO USE ARE YOU A:CURRENT SMOKER PATIENT COUNSELED ON THE DANGERS OF TOBACCO USE AND URGED TO QUIT:09/21/2016 ARE YOU INTERESTED IN QUITTING?READY TO QUIT COUNSELED THE PATIENT ON TOBACCO USE, CESSATION [id number]/12/2017 LEARNING BARRIERS / SPECIAL NEEDS ORIENTED TO PLAN OF CARE: PATIENT, PAIN MANAGEMENT PATIENT, ORIENTED TO PLAN OF CARE: PATIENT, PAIN MANAGEMENT PATIENT. NEW PATIENT PAIN DIARY TODAY'S VISIT NOTES, FROM 0-10, WHAT LEVEL IS YOUR PAIN TODAY? 0. PAIN CLINIC PFS, CLERGY, PUBLIC HEALTH REFERRALS PFS REFERRAL NEEDED? NO, CLERGY REFERRAL NEEDED? NO, PUBLIC HEALTH REFERRAL NEEDED? NO, WAS THE PROVIDER NOTIFIED OF ANY PERTINENT INFO? NO, PFS REFERRAL NEEDED? NO, CLERGY REFERRAL NEEDED? NO, PUBLIC HEALTH REFERRAL NEEDED? NO, WAS THE PROVIDER NOTIFIED OF ANY PERTINENT INFO? NO. ADVANCE DIRECTIVES HEALTH CARE PROXY?YES NAME OF HCP PETAR BRADFORD CONTACT # FOR HCP [phone] DO YOU HAVE A COPY WITH YOU?NO POWER OF DIRECTOR DISTRIBUTION?NO REVIEW OF SYSTEMS REVIEWED BY: PROVIDER: LISA AMOR . CONSTITUTIONAL: ANY CHANGE IN YOUR MEDICAL CONDITION? NO . CHILLS NO . FEVER NO . INFECTION: DO YOU HAVE NEW INFECTIONS? NO . DO YOU HAVE HISTORY OF MRSA? NO . MUSCULOSKELETAL: ANY NEW PATTERNS OF PAIN OR NUMBNESS? NO . GASTROENTEROLOGY: ANY NEW CHANGE IN BOWEL CONTROL? NO . GENITOURINARY: ANY NEW CHANGE IN BLADDER CONTROL? NO . IS THERE A CHANCE YOU COULD BE ? NO . HEMATOLOGY/LYMPH: DO YOU TAKE ANY BLOOD THINNERS? (FOR EXAMPLE- COUMADIN, PLAVIX, AGGRENOX, PLATEL, PRADAXA, OR XARELTO) NO . WHEN WAS YOUR LAST DOSE? DATE: TIME: . NEUROLOGY: HAVE YOU FALLEN IN THE PAST 6 MONTHS? NO . ANY NEW EXTREMITY NUMBNESS OR WEAKNESS? NO . CARDIOLOGY: DO YOU HAVE A PACEMAKER OR DEFIBRILLATOR? NO . RESPIRATORY: HAVE YOU BEEN SICK IN THE PAST WEEK? NO . FEVER NO . FLU LIKE SYMPTOMS? NO . COUGH NO . INTEGUMENTARY: DO YOU HAVE ANY RASHES OR OPEN SORES? YES . ALLERGIC/IMMUNO: ARE YOU ALLERGIC TO SHELLFISH OR IV DYE? NO . ANY NEW ALLERGIES? NO . PSYCHIATRIC: DO YOU HAVE THOUGHTS OF HURTING YOURSELF OR SOMEONE ELSE? NO . ARE YOU ABUSED, NEGLECTED, OR IN AN UNSAFE ENVIRONMENT? NO . ENDOCRINOLOGY: ARE YOU DIABETIC? NO . OTHER: DO YOU NEED ANY PRESCRIPTIONS? NO . IF YES, PLEASE LIST: ____ . ANY NEW PROBLEMS WITH YOUR MEDICATIONS? NO . WHEN DID YOU LAST EAT? ____ . WHEN DID YOU LAST DRINK? ____ . WHAT DID YOU LAST DRINK? ____ . NAME OF PERSON DRIVING YOU HOME? ____ . DO YOU HAVE ANY OTHER QUESTIONS OR CONCERNS NO . UROLOGY: GENERAL URINARY FREQ BUT NO S/S UTI . VITAL SIGNS WT 90.8 LBS, HT 56 IN, BMI 20.35 INDEX, BP 144/81 MM HG, HR 75 /MIN, RR 16 /MIN, TEMP 98.2 F, OXYGEN SAT % 95%, NA INITIALS SC 10:29. EXAMINATION GENERAL EXAMINATION: GENERAL APPEARANCE:SIGNIFICANT HEIGHT LOSS. PALE. PSYCHALERT , ORIENTED X 3 , APPROPRIATE MOOD AND AFFECT . CHEST:SIGNIFICANT THORACIC KYPHOSIS. LUNGS:CLEAR TO AUSCULTATION BILATERALLY, INTERMITTANT COUGH, , DIMINISHED BREATH SOUNDS AT BASES, NO WHEEZES OR CRACKLES. MUSCULOSKELETAL:MINIMAL TENDERNESS WITH PALPATION OVER LUMBAR SPINOUS PROCESSES AND AT THE SACRAL ILIAC JOINTS. NO PALPABLE TRIGGER POINTS OVER SACRUM TODAY. RISES EASILY TO STANDING POSITION. POSTURE STOOPED. GAIT WIDE BASED, ANTALGIC. EXTREMITIES:NO EDEMA. ASSESSMENTS MYALGIA - M79.1 (PRIMARY) TREATMENT MYALGIA NOTES: CALL IF SCRIPTS NEEDED. CALL IF INCREASE IN PAIN. PROCEDURE CODES FA211 ESTABILISHED PATIENT [facility] CHARGE DISPOSITION & COMMUNICATION FOLLOW UP 3 MONTHS (REASON: NECK/LOW BACK PAIN) ELECTRONICALLY SIGNED BY BRITTANIE DUNAWAY ON 10/14/2016 AT 05:01 PM EDT DISCLAIMER : THIS IS A VISIT SUMMARY EXTRACTED FROM THE [employer] CHART. IT IS NOT A COPY OF THE [employer] PROGRESS NOTE. RIZWANA
== END ==
LOC: M PAIN 10:20
PROVIDERS: ATTEND Nurse Practitioner Family
DX: G89.29 Other chronic pain (principal); M25.512 Pain in left shoulder; M25.511 Pain in right shoulder; M79.1 Myalgia; K21.9 Gastro-esophageal reflux disease without esophagitis; M81.0 Age-related osteoporosis without current pathological fracture; E78.5 Hyperlipidemia, unspecified; F17.200 Nicotine dependence, unspecified, uncomplicated; Z79.82 Long term (current) use of aspirin; Z79.891 Long term (current) use of opiate analgesic; Z79.899 Other long term (current) drug therapy

== ENCOUNTER → 2017-01-27 | Outpatient (CLI) | payer OTHER, MEDICAID ==
--- NOTE | 2017-01-30 00:10 | ECWPNPC ---
PATIENT NAME: MARY PEÑA : 1950 GENDER: FEMALE VISIT DATE: 01/27/2017 DISCHARGE DATE: 01/27/17 1240 VISIT LOCKED DATE TIME: PHYSICIAN: LISA FULLER RESOURCE: LISA FULLER REASON FOR APPOINTMENT 1. NECK PAIN HISTORY OF PRESENT ILLNESS HISTORY OF PRESENT ILLNESS: DENIES : PAIN THE PATIENT DESCRIBES THE PAIN... FALL RISK SCREENING: SCREENING :NO FALLS IN THE PAST YEAR TODAY'S VISIT: NOTES: IS HAVING INCREASING PAIN IN RIGHT BUTTUCK WITH RAIATION DOWN RIGHT TO FOOT. NO RECENT FALLS. WAS RECENTLY HOSPITALIZED AT [facility] X 3 DAYS FOR PNEUMONIA.REPORTS BACK AND THORACIC PAIN UNDER GOOD CONTROL.RATES PAIN TODAY 5/10. DESCRIBES PAIN SHARP AND GRABBING.. CURRENT MEDICATIONS TAKING CYMBALTA 60 MG CAPSULE DELAYED RELEASE PARTICLES 1 CAPSULE ORALLY ONCE A DAY TAKING METOPROLOL SUCCINATE ER 25 MG TABLET EXTENDED RELEASE 24 HOUR 1/2 TABLET ORALLY BID TAKING RALOXIFENE HCL 60 MG TABLET 1 TABLET ORALLY ONCE A DAY TAKING RAMIPRIL 2.5 MG CAPSULE 1 CAPSULE ORALLY ONCE A DAY TAKING ASPIR-81 81 MG TABLET DELAYED RELEASE 1 TABLET ORALLY ONCE A DAY TAKING MIRALAX - POWDER 1 PACKET MIXED WITH 8 OUNCES OF FLUID ORALLY BID TAKING VITAMIN D 1000 UNIT TABLET 1 TABLET ORALLY BID TAKING TRAMADOL HCL 50 MG TABLET 1-2 TABLET NEEDED ORALLY EVERY 6 HRS PRN PAIN MDD =6 TAKING TIZANIDINE HCL 4 MG TABLET 1/2 -1 TABLET NEEDED ORALLY EVERY 6 HOURS NEED FOR SPASM TAKING TRAZODONE HCL 100 MG TABLET 1 TABLET AT BEDTIME ORALLY ONCE A DAY TAKING OMEPRAZOLE 40 MG CAPSULE DELAYED RELEASE 1 CAPSULE ORALLY BID TAKING TRIAMCINOLONE ACETONIDE 0.025 % CREAM 1 APPLICATION TO AFFECTED AREA EXTERNALLY TWICE A DAY TAKING CLOTRIMAZOLE 1 % CREAM 1 APPLICATION TO AFFECTED AREA EXTERNALLY TWICE A DAY TAKING LINZESS 145 MCG CAPSULE 1 CAPSULE ORALLY ONCE A DAY NOT-TAKING ERGOCALCIFEROL 78398 UNIT CAPSULE 1 CAPSULE ORALLY WEEKLY, NOTES: 03/01 4AM NOT-TAKING CARAFATE 1 GM TABLET 1 TABLET ON AN EMPTY STOMACH ORALLY TWICE A DAY, NOTES: 03/01 4AM NOT-TAKING COLACE 100 MG CAPSULE 1 CAPSULE NEEDED ORALLY ONCE A DAY, NOTES: 03/01 4AM NOT-TAKING STIOLTO RESPIMAT 2.5-2.5 MCG/ACT AEROSOL SOLUTION 2 PUFFS INHALATION ONCE A DAY NOT-TAKING DULERA 200-5 MCG/ACT AEROSOL 2 PUFFS INHALATION TWICE A DAY, NOTES: 0400 NOT-TAKING SIMVASTATIN 20 MG TABLET 1 TABLET IN THE EVENING ORALLY ONCE A DAY, NOTES: 07/06/15 MEDICATION LIST REVIEWED AND RECONCILED WITH THE PATIENT PAST MEDICAL HISTORY GERD OSTEOPOROSIS HYPERLIPID CHRONIC PAIN CONSTIPATION ALLERGIES N.K.D.A. SURGICAL HISTORY CSECTION 1974 HYSTERECTOMY 1975 CHOLECYSTECTOMY 2008 LASER DISKECTOMYVAT L5-S1 2007 SOCIAL HISTORY GENERAL: TOBACCO USE ARE YOU A:CURRENT SMOKER PATIENT COUNSELED ON THE DANGERS OF TOBACCO USE AND URGED TO QUIT:09/21/2016 ARE YOU INTERESTED IN QUITTING?READY TO QUIT COUNSELED THE PATIENT ON TOBACCO USE, CESSATION [id number]/12/2017 LEARNING BARRIERS / SPECIAL NEEDS ORIENTED TO PLAN OF CARE: PATIENT, PAIN MANAGEMENT PATIENT, ORIENTED TO PLAN OF CARE: PATIENT, PAIN MANAGEMENT PATIENT. NEW PATIENT PAIN DIARY TODAY'S VISIT NOTES, FROM 0-10, WHAT LEVEL IS YOUR PAIN TODAY? 0. PAIN CLINIC PFS, CLERGY, PUBLIC HEALTH REFERRALS PFS REFERRAL NEEDED? NO, CLERGY REFERRAL NEEDED? NO, PUBLIC HEALTH REFERRAL NEEDED? NO, WAS THE PROVIDER NOTIFIED OF ANY PERTINENT INFO? NO, PFS REFERRAL NEEDED? NO, CLERGY REFERRAL NEEDED? NO, PUBLIC HEALTH REFERRAL NEEDED? NO, WAS THE PROVIDER NOTIFIED OF ANY PERTINENT INFO? NO. ADVANCE DIRECTIVES HEALTH CARE PROXY?YES NAME OF HCP PETAR BRADFORD CONTACT # FOR HCP [phone] DO YOU HAVE A COPY WITH YOU?NO POWER OF MECHANICAL TEST ENGINEER?NO REVIEW OF SYSTEMS REVIEWED BY: PROVIDER: LISA TORRESP . CONSTITUTIONAL: ANY CHANGE IN YOUR MEDICAL CONDITION? NO . CHILLS NO . FEVER NO . INFECTION: DO YOU HAVE NEW INFECTIONS? NO . DO YOU HAVE HISTORY OF MRSA? NO . MUSCULOSKELETAL: ANY NEW PATTERNS OF PAIN OR NUMBNESS? YES . GASTROENTEROLOGY: ANY NEW CHANGE IN BOWEL CONTROL? NO . GENITOURINARY: ANY NEW CHANGE IN BLADDER CONTROL? NO . IS THERE A CHANCE YOU COULD BE ? NO . HEMATOLOGY/LYMPH: DO YOU TAKE ANY BLOOD THINNERS? (FOR EXAMPLE- COUMADIN, PLAVIX, AGGRENOX, PLATEL, PRADAXA, OR XARELTO) NO . WHEN WAS YOUR LAST DOSE? DATE: TIME: . NEUROLOGY: HAVE YOU FALLEN IN THE PAST 6 MONTHS? YES . ANY NEW EXTREMITY NUMBNESS OR WEAKNESS? NO . CARDIOLOGY: DO YOU HAVE A PACEMAKER OR DEFIBRILLATOR? NO . RESPIRATORY: HAVE YOU BEEN SICK IN THE PAST WEEK? NO . FEVER NO . FLU LIKE SYMPTOMS? NO . COUGH NO . INTEGUMENTARY: DO YOU HAVE ANY RASHES OR OPEN SORES? NO . ALLERGIC/IMMUNO: ARE YOU ALLERGIC TO SHELLFISH OR IV DYE? NO . ANY NEW ALLERGIES? NO . PSYCHIATRIC: DO YOU HAVE THOUGHTS OF HURTING YOURSELF OR SOMEONE ELSE? NO . ARE YOU ABUSED, NEGLECTED, OR IN AN UNSAFE ENVIRONMENT? NO . ENDOCRINOLOGY: ARE YOU DIABETIC? NO . OTHER: DO YOU NEED ANY PRESCRIPTIONS? YES . IF YES, PLEASE LIST: , LINZESS . ANY NEW PROBLEMS WITH YOUR MEDICATIONS? NO . WHEN DID YOU LAST EAT? ____ . WHEN DID YOU LAST DRINK? ____ . WHAT DID YOU LAST DRINK? ____ . NAME OF PERSON DRIVING YOU HOME? ____ . DO YOU HAVE ANY OTHER QUESTIONS OR CONCERNS NO . VITAL SIGNS WT 96 LBS, HT 56 IN, BMI 21.52 INDEX, BP 110/68 MM HG, HR 75 /MIN, RR 16 /MIN, TEMP 98.9 F, OXYGEN SAT % 98%, NA INITIALS SC 12:05, REVIEWED BY: NL. EXAMINATION GENERAL EXAMINATION: GENERAL APPEARANCE:SIGNIFICANT HEIGHT LOSS. PALE. PSYCHALERT , ORIENTED X 3 , APPROPRIATE MOOD AND AFFECT . CHEST:SIGNIFICANT THORACIC KYPHOSIS. LUNGS:CLEAR TO AUSCULTATION BILATERALLY , DIMINISHED BREATH SOUNDS AT BASES, NO WHEEZES OR CRACKLES. MUSCULOSKELETAL:MINIMAL TENDERNESS WITH PALPATION OVER LUMBAR SPINOUS PROCESSES AND AT THE SACRAL ILIAC JOINTS. NO PALPABLE TRIGGER POINTS OVER SACRUM TODAY. RISES EASILY TO STANDING POSITION. POSTURE STOOPED. GAIT WIDE BASED, ANTALGIC. EXTREMITIES:NO EDEMA. ASSESSMENTS MYALGIA - M79.1 (PRIMARY) SACROILIITIS, NOT ELSEWHERE CLASSIFIED - M46.1 TREATMENT MYALGIA REFILL LINZESS CAPSULE, 145 MCG, 1 CAPSULE, ORALLY, ONCE A DAY, 30 DAY(S), 30 CAPSULE, REFILLS 5 INJECTION ANESTHETIC SACROILIAC JOINTJONNYLISA Zac 01/27/2017 12:30:36 PM > RIGHT NOTES: CONTINUE USUAL MEDS. PREVENTIVE MEDICINE PRE PROCEDURE INSTRUCTIONS GIVEN WITH UNDERSTANDING EXPRESSED. PROCEDURE CODES FA211 ESTABILISHED PATIENT [facility] FACILITY CHARGE 28448 INJECT SACROILIAC JOINT G8730 PAIN ASSESS POS TOOL F/U PLAN DOC G8427 DOC MEDS VERIFIED W/PT OR RE DISPOSITION & COMMUNICATION FOLLOW UP AFTER INJECTION (REASON: CHECK AUTH FOR RIGHT SIJ) ELECTRONICALLY SIGNED BY BRITTANIE DUNAWAY ON 01/29/2017 AT 06:35 PM EST DISCLAIMER : THIS IS A VISIT SUMMARY EXTRACTED FROM THE [employer] CHART. IT IS NOT A COPY OF THE [employer] PROGRESS NOTE. MTDD
== END ==
LOC: M PAIN 11:30
PROVIDERS: ATTEND Nurse Practitioner Family
DX: G89.29 Other chronic pain (principal); M79.1 Myalgia; M46.1 Sacroiliitis, not elsewhere classified; K21.9 Gastro-esophageal reflux disease without esophagitis; E78.5 Hyperlipidemia, unspecified; K59.00 Constipation, unspecified; M81.0 Age-related osteoporosis without current pathological fracture; F17.210 Nicotine dependence, cigarettes, uncomplicated; Z79.82 Long term (current) use of aspirin; Z79.899 Other long term (current) drug therapy
CPT/HCPCS: G0260; G0463

== ENCOUNTER → 2017-03-27 | Outpatient (CLI) | payer OTHER, MEDICAID ==
[~2017-03-27] MED LIST changes: -ACET500T2 OR; -ADV250INH INH; -ALBU0.63 IN; -ALBU17IN INH; -ALTA1CAP2 PO; -AMIT25TA2 OR; -ASPI81TA45 OR; -ASPI81TA85 PO; +BUPIVACAINE HCL 0.25% 30 ML VIAL As Ordered; -CALCCHW12; -CARA1TAB6 PO; -CYMB60CA3 PO; -DOCQ100C PO; -DULE200A IN; -DULO30CA PO; -EVIS1TAB PO; -INHALER; +ISOVUE-M 300 61% 15ML VIAL (Q9967) As Ordered; -LEVO500T3 PO; -LIDO3CRE14 TOP; +LIDOCAINE 1% SDV INJ 30 ML VIAL As Ordered; -LINZ145C PO; -METO-346 PO; -METO1TAB32 PO; -METO25TA2 OR; -MIRA3350 PO; -MIRALEX; -NEUR100C OR; -OMEP20TA7 OR; -PANT40TA2 PO; -PLAV75TA2 OR; -POLY33502 PO; -PRIL20CA; -RALO1TAB PO; -RAMI25CA OR; -RANITAB PO; -RISE30TA; -SIMV40TA2 PO; -SOMA350T PO; -SYMB80AE INH; -TIZA4CAP PO; -TIZA4CAP3 PO; -TIZA4TAB OR; -TRAM50TA2; -TRAM50TA2 OR; -TRAM50TA2 PO; -TRAZ-136 PO; -TRAZ50TA11 PO; +TRIAMCINOLONE ACETONIDE SUSP 40 MG/ML VIAL (J3301) As Ordered; -VENL75TA2; -VICO5TAB PO; -VITA200028 PO; -VOLT1GEL EX; -ZOLO20CO PO; -[UNRECOGNIZED DRUG - OTHER] INH; -acetaminophen PO; -biofreeze TOP; -spiriva INH
== END ==
LOC: M PAIN 08:30
DX: G89.29 Other chronic pain (principal); M46.1 Sacroiliitis, not elsewhere classified; K21.9 Gastro-esophageal reflux disease without esophagitis; M81.0 Age-related osteoporosis without current pathological fracture; E78.5 Hyperlipidemia, unspecified; Z79.82 Long term (current) use of aspirin; Z79.891 Long term (current) use of opiate analgesic; Z79.899 Other long term (current) drug therapy
CPT/HCPCS: J3301

== ENCOUNTER → 2017-10-04 | Outpatient (CLI) | payer OTHER, MEDICAID | LOC: M PAIN 10:00 | DX: M79.1 Myalgia (principal); K21.9 Gastro-esophageal reflux disease without esophagitis; M81.0 Age-related osteoporosis without current pathological fracture; E78.5 Hyperlipidemia, unspecified; F17.200 Nicotine dependence, unspecified, uncomplicated; Z79.82 Long term (current) use of aspirin; Z79.899 Other long term (current) drug therapy; Z86.69 Personal history of other diseases of the nervous system and sense organs | CPT/HCPCS: G0463 ==

== ENCOUNTER → 2017-10-23 | Outpatient (CLI) | payer OTHER, MEDICAID ==
[~2017-10-23] MED LIST changes: +BUPIVACAINE HCL 0.25% 10 ML VIAL As Ordered; -ISOVUE-M 300 61% 15ML VIAL (Q9967) As Ordered; -LIDOCAINE 1% SDV INJ 30 ML VIAL As Ordered
== END ==
LOC: M PAIN 14:00
DX: G89.29 Other chronic pain (principal); M79.1 Myalgia; K21.9 Gastro-esophageal reflux disease without esophagitis; E78.5 Hyperlipidemia, unspecified; M81.0 Age-related osteoporosis without current pathological fracture; F17.200 Nicotine dependence, unspecified, uncomplicated; Z79.82 Long term (current) use of aspirin; Z79.899 Other long term (current) drug therapy
CPT/HCPCS: J3301

== ENCOUNTER → 2018-05-02 | Outpatient (CLI) | payer MEDICARE, MEDICAID ==
[~2018-05-02] MED LIST changes: +ACET500T2 OR; +ADV250INH INH; +ALBU0.63 IN; +ALBU17IN INH; +ALTA1CAP2 PO; +AMIT25TA2 OR; +ASPI81TA45 OR; +ASPI81TA85 PO; -BUPIVACAINE HCL 0.25% 10 ML VIAL As Ordered; -BUPIVACAINE HCL 0.25% 30 ML VIAL As Ordered; +CALCCHW12; +CARA1TAB6 PO; +CYMB60CA3 PO; +DOCQ100C5 PO; +DULE200A IN; +DULO1CAP3 PO; +DULO30CA9 PO; +EVIS1TAB PO; +FLON1SPR NARES; +INHALER; +LEVO500T3 PO; +LIDO3CRE14 TOP; +LINZ145C PO; +LISI10TA4 PO; +MECL-86 PO; +METO-346 PO; +METO1TAB32 PO; +METO1TAB87 PO; +METO25TA2 OR; +MIRA3350 PO; +MIRALEX; +NEUR100C OR; +OMEP20TA7 OR; +OMEP40CA2 PO; +PANT40TA3 PO; +PLAV75TA2 OR; +POLY1POW38 PO; +PRIL20CA; +RALO1TAB PO; +RAMI25CA OR; +RANITAB PO; +RISE30TA; +SIMV40TA2 PO; +SLOW160T12 PO; +SOMA350T PO; +SYMB80AE INH; +TIZA4CAP PO; +TIZA4TAB OR; +TRAM50TA2; +TRAM50TA2 OR; +TRAM50TA2 PO; +TRAZ-160 PO; +TRAZ-163 PO; -TRIAMCINOLONE ACETONIDE SUSP 40 MG/ML VIAL (J3301) As Ordered; +VENL75TA2; +VICO5TAB PO; +VITA10002 PO; +VITA200028 PO; +VOLT1GEL EX; +ZOLO20CO PO; +[UNRECOGNIZED DRUG - OTHER] INH; +acetaminophen PO; +biofreeze TOP; +evista PO; +spiriva INH
--- NOTE | 2018-05-17 00:50 | ECWPNPC ---
PATIENT NAME: MARY PEÑA : 1950 GENDER: FEMALE VISIT DATE: 05/02/2018 DISCHARGE DATE: 05/02/18 1145 VISIT LOCKED DATE TIME: PHYSICIAN: BARRY DUMONT RESOURCE: BARRY DUMONT REASON FOR APPOINTMENT 1. BACK/NECK HISTORY OF PRESENT ILLNESS HISTORY OF PRESENT ILLNESS: HERE FOR F/U OF CHRONIC NEK PAIN,LOW BACK PAIN.REPORTING NEW ONSET OF RIGHT ARM SHOOTING PAIN.STATES NECK PAIN HAS ESCALATED OVER THE PAST 6 WEEKS.RATING PAIN VAS 8/10. PAIN THE PATIENT DESCRIBES THE PAIN... FALL RISK SCREENING: SCREENING : NO FALLS IN THE PAST YEAR. CURRENT MEDICATIONS TAKING CYMBALTA 60 MG CAPSULE DELAYED RELEASE PARTICLES 1 CAPSULE ORALLY ONCE A DAY TAKING METOPROLOL SUCCINATE ER 25 MG TABLET EXTENDED RELEASE 24 HOUR 1/2 TABLET ORALLY BID TAKING RALOXIFENE HCL 60 MG TABLET 1 TABLET ORALLY ONCE A DAY TAKING RAMIPRIL 2.5 MG CAPSULE 1 CAPSULE ORALLY ONCE A DAY TAKING ASPIR-81 81 MG TABLET DELAYED RELEASE 1 TABLET ORALLY ONCE A DAY TAKING VITAMIN D 1000 UNIT TABLET 1 TABLET ORALLY BID TAKING OMEPRAZOLE 40 MG CAPSULE DELAYED RELEASE 1 CAPSULE ORALLY BID TAKING TIZANIDINE HCL 4 MG TABLET 1/2 -1 TABLET NEEDED ORALLY EVERY 6 HOURS NEED FOR SPASM TAKING MIRALAX - POWDER 1 PACKET MIXED WITH 8 OUNCES OF FLUID ORALLY BID TAKING STIOLTO RESPIMAT 2.5-2.5 MCG/ACT AEROSOL SOLUTION 2 PUFFS INHALATION ONCE A DAY TAKING TRAMADOL HCL 50 MG TABLET 1-2 TABLET NEEDED ORALLY EVERY 6 HRS PRN PAIN MDD =6 TAKING LINZESS 290 MCG CAPSULE 1 CAPSULE ORALLY ONCE A DAY TAKING TRAZODONE HCL 100 MG TABLET 1 TABLET AT BEDTIME ORALLY ONCE A DAY NOT-TAKING TRIAMCINOLONE ACETONIDE 0.025 % CREAM 1 APPLICATION TO AFFECTED AREA EXTERNALLY TWICE A DAY NOT-TAKING CLOTRIMAZOLE 1 % CREAM 1 APPLICATION TO AFFECTED AREA EXTERNALLY TWICE A DAY NOT-TAKING ERGOCALCIFEROL 39728 UNIT CAPSULE 1 CAPSULE ORALLY WEEKLY NOT-TAKING CARAFATE 1 GM TABLET 1 TABLET ON AN EMPTY STOMACH ORALLY TWICE A DAY NOT-TAKING COLACE 100 MG CAPSULE 1 CAPSULE NEEDED ORALLY ONCE A DAY MEDICATION LIST REVIEWED AND RECONCILED WITH THE PATIENT PAST MEDICAL HISTORY GERD OSTEOPOROSIS HYPERLIPID CHRONIC PAIN CONSTIPATION ALLERGIES N.K.D.A. SURGICAL HISTORY CSECTION 1974 HYSTERECTOMY 1974 CHOLECYSTECTOMY 2007 LASER DISKECTOMYVAT L5-S1 2007 FAMILY HISTORY FATHER: 68 YRS, DIAGNOSED WITH HYPERTENSION, HEART DISEASE MOTHER: , DIAGNOSED WITH OTHER 1 BROTHER(S) , 5 SISTER(S) . 2 SON(S) . 1 SISTER IS - CAR ACCIDENT ONE BROTHER IS - DIABETES AND HEART ISSUES ONE SON FROM CAR ACCIDENTMOTHER--COPD. HOSPITALIZATION/MAJOR DIAGNOSTIC PROCEDURE CSECTION AND HYSTERECTOMY REVIEW OF SYSTEMS REVIEWED BY: PROVIDER: BARRY AMOR . CONSTITUTIONAL: ANY CHANGE IN YOUR MEDICAL CONDITION? NO . CHILLS NO . FEVER NO . INFECTION: DO YOU HAVE NEW INFECTIONS? NO . DO YOU HAVE HISTORY OF MRSA? NO . MUSCULOSKELETAL: ANY NEW PATTERNS OF PAIN OR NUMBNESS? NO . GASTROENTEROLOGY: ANY NEW CHANGE IN BOWEL CONTROL? YES, CONSTIPATION X 6 MOS . GENITOURINARY: ANY NEW CHANGE IN BLADDER CONTROL? YES, PT C/O FREQUENCY MCC . IS THERE A CHANCE YOU COULD BE ? NO . HEMATOLOGY/LYMPH: DO YOU TAKE ANY BLOOD THINNERS? (FOR EXAMPLE- COUMADIN, PLAVIX, AGGRENOX, PLATEL, PRADAXA, OR XARELTO) NO . WHEN WAS YOUR LAST DOSE? DATE: TIME: . NEUROLOGY: HAVE YOU FALLEN IN THE PAST 12 MONTHS? YES, PT STATES SHE FELL 04/2018 ON THE ICE PT DENIES INJURIES . ANY NEW EXTREMITY NUMBNESS OR WEAKNESS? YES, RIGHT ARM AND HAND WEAKNESS X 1 MONTH . CARDIOLOGY: DO YOU HAVE A PACEMAKER OR DEFIBRILLATOR? NO . RESPIRATORY: HAVE YOU BEEN SICK IN THE PAST WEEK? NO . FEVER NO . FLU LIKE SYMPTOMS? NO . COUGH NO . INTEGUMENTARY: DO YOU HAVE ANY RASHES OR OPEN SORES? YES, OPEN SORE TO RIGHT FOREAM DURING VACUMMING . ALLERGIC/IMMUNO: ARE YOU ALLERGIC TO IV DYE? NO . ANY NEW ALLERGIES? NO . PSYCHIATRIC: DO YOU HAVE THOUGHTS OF HURTING YOURSELF OR SOMEONE ELSE? NO . ARE YOU ABUSED, NEGLECTED, OR IN AN UNSAFE ENVIRONMENT? NO . ENDOCRINOLOGY: ARE YOU DIABETIC? NO . OTHER: DO YOU NEED ANY PRESCRIPTIONS? YES, TO DISCUSS WITH BARRY . IF YES, PLEASE LIST: ____ . ANY NEW PROBLEMS WITH YOUR MEDICATIONS? YES, PT C/O WHEN TAKING TRAZADONE DOESN'T STAY ASLEEP IN THE NIGHT . WHEN DID YOU LAST EAT? ____ . WHEN DID YOU LAST DRINK? ____ . WHAT DID YOU LAST DRINK? ____ . NAME OF PERSON DRIVING YOU HOME? ____ . DO YOU HAVE ANY OTHER QUESTIONS OR CONCERNS NO . VITAL SIGNS WT 95.4 LBS, HT 56 IN, BMI 21.39 INDEX, BP 134/74 MM HG, HR 74 /MIN, RR 16 /MIN, TEMP 99.5 F, OXYGEN SAT % 95%, NA INITIALS SC 10:19, REVIEWED BY: EM. EXAMINATION GENERAL EXAMINATION: GENERAL APPEARANCE:AWAKE,ALERT ,PLEAASANT . PSYCHAFFECT NORMAL . NECK:TRACHEA MIDLINE. NO CERVICAL OR SUPRACLAVICULAR LYMPHADENOPATHY NOTED . LUNGS:LUNG STEWARD ARE CLEAR TO AUSCULTATION BILATERALLY. GOOD MOVEMENT OF AIR . HEART:S1, S2 IN A REGULAR RATE AND RHYTHM. NO SIGNIFICANT MURMURS, RUBS OR GALLOPS NOTED . BACK:MARKED KYPHOSIS. ABDOMEN:SOFT/NONTENDER . MUSCULOSKELETAL:MUSCLE STRENGTH TESTING 5/5 BILATERAL UPPER/LOWER EXTREMITIES . LUMBAR SACRAL SPINEPALPATION: FOR PAIN OVER L/S SPINE. + FOR PAIN OVER L/S PARASPINALS. . CERVICAL+ FOR PAIN WITH PALPATION OF CERVICAL SPINE. +FOR PAIN WITH PALPATION OF CERVICAL PARASPINALS. . SKIN:NO RASH OR SKIN LESIONS . NEUROLOGIC EXAM:CN'S NORMAL TESTED , DTRS 1-2+ IN ALL 4 EXTREMITIES . DIAGNOSTIC TESTS REVIEWEDMRI L/S SPINE- MRI C-SPINE- . ASSESSMENTS ARTHROPATHY - M12.9 (PRIMARY) CERVICALGIA - M54.2 TREATMENT ARTHROPATHY STOP TIZANIDINE HCL TABLET, 4 MG, 1/2 -1 TABLET NEEDED, ORALLY, EVERY 6 HOURS NEED FOR SPASM DECREASE TRAMADOL HCL TABLET, 50 MG, 1 TAB, ORALLY, Q6H PRN MDD4, 30 DAY(S), 120, REFILLS 3 CONTINUE TRAZODONE HCL TABLET, 100 MG, 1 TABLET AT BEDTIME, ORALLY, ONCE A DAY START COLACE CAPSULE, 100 MG, 1 CAPSULE NEEDED, ORALLY, BID, 30 DAY(S), 60 CAPSULE, REFILLS 5 START MORPHINE SULFATE ER TABLET EXTENDED RELEASE, 15 MG, 1 TABLET, ORALLY, DAILY, 30 DAY(S), 30 TABLET, REFILLS 0 START MELOXICAM TABLET, 7.5 MG, 1 TABLET, ORALLY, BID, 30 DAY(S), 60 TABLET, REFILLS 5 [facility] MRI SPINE, CERVICAL WITHOUT [id number] NOTES: ISTOP REGISTRY REVIEWED AND DEMONSTRATES COMPLLIANCE. BRINGS IN MEDICATIONS WHICH IS APPROPRIATE FOR WHAT WAS DISPENSED. RECENT URINE TOXICOLOGY REVIEWED. NO UNAUTHORIZED MEDICATIONS. NO ILLICIT SUBSTANCES AND PRESCRIBED MEDICATIONS WERE PRESENT. , RISKS AND BENEFITS OF NARCOTIC/OPIOD MEDICATIONS WERE REVIEWED WITH PATIENT - THIS INCLUDES BUT IS NOT LIMITED TO RISK OF DEPENDANCE/DEVELOPMENT OF ADDICTION, MOOD DISTURBANCE AND DEPRESSION, OSTEOPOROSIS, HORMONAL AND LABIDAL CHANGES, RESPIRATORY DEPRESSION AND . PATIENT IS ADVISED NOT TO DRIVE OR DRINK ALCOHOL WHILE ON THESE MEDICATIONS. PREVENTIVE MEDICINE PAIN CLINIC TEACHING: MEDICATIONS PRINTED INFORMATION ON MELOXICAM, COLACE AND MORPHINE GIVEN TO AND REVIEWED WITH PT AND SHE VERBALIZED UNDERSTANDING. AD. PROCEDURE CODES FA211 ESTABILISHED PATIENT [facility] CHARGE DISPOSITION & COMMUNICATION FOLLOW UP 2 MONTHS ELECTRONICALLY SIGNED BY ZULEYMA SWANSON ON 05/16/2018 AT 10:08 AM EST DISCLAIMER : THIS IS A VISIT SUMMARY EXTRACTED FROM THE [employer] CHART. IT IS NOT A COPY OF THE [employer] PROGRESS NOTE. RIZWANA
== END ==
LOC: M PAIN 10:45
PROVIDERS: ATTEND Nurse Practitioner Family
DX: M12.9 Arthropathy, unspecified (principal); M54.2 Cervicalgia; G89.29 Other chronic pain; K21.9 Gastro-esophageal reflux disease without esophagitis; M81.0 Age-related osteoporosis without current pathological fracture; E78.5 Hyperlipidemia, unspecified; Z79.82 Long term (current) use of aspirin; Z79.899 Other long term (current) drug therapy

== ENCOUNTER → 2018-05-25 | Outpatient (CLI) | payer OTHER, MEDICAID ==
[~2018-05-25] MED LIST changes: +DULO30CA PO; -DULO30CA9 PO
--- NOTE | 2018-06-09 01:32 | ECWPNPC ---
PATIENT NAME: MARY PEÑA : 1950 GENDER: FEMALE VISIT DATE: 05/25/2018 DISCHARGE DATE: 05/25/18 1028 VISIT LOCKED DATE TIME: PHYSICIAN: BARRY DUMONT RESOURCE: BARRY DUMONT REASON FOR APPOINTMENT 1. MEDS HISTORY OF PRESENT ILLNESS HISTORY OF PRESENT ILLNESS: HERE FOR F/U OF CHRONIC LOW BACK AND NECK PAIN.STARTED ON MS CONTIN 15MG DAILY AND MELOXICAM AT LAST VISIT.PATIENT HAD TO STOP SHE WAS HAVING SEVERE ITCHING.RATING PAIN VAS 7/10.DESCRIBES PAIN CONTINUOUS AND SHOOTING. PAIN THE PATIENT DESCRIBES THE PAIN... FALL RISK SCREENING: SCREENING : NO FALLS IN THE PAST YEAR. CURRENT MEDICATIONS TAKING CYMBALTA 60 MG CAPSULE DELAYED RELEASE PARTICLES 1 CAPSULE ORALLY ONCE A DAY TAKING METOPROLOL SUCCINATE ER 25 MG TABLET EXTENDED RELEASE 24 HOUR 1/2 TABLET ORALLY BID TAKING RALOXIFENE HCL 60 MG TABLET 1 TABLET ORALLY ONCE A DAY TAKING RAMIPRIL 2.5 MG CAPSULE 1 CAPSULE ORALLY ONCE A DAY TAKING ASPIR-81 81 MG TABLET DELAYED RELEASE 1 TABLET ORALLY ONCE A DAY TAKING VITAMIN D 1000 UNIT TABLET 1 TABLET ORALLY BID TAKING OMEPRAZOLE 40 MG CAPSULE DELAYED RELEASE 1 CAPSULE ORALLY BID TAKING MIRALAX - POWDER 1 PACKET MIXED WITH 8 OUNCES OF FLUID ORALLY BID TAKING STIOLTO RESPIMAT 2.5-2.5 MCG/ACT AEROSOL SOLUTION 2 PUFFS INHALATION ONCE A DAY TAKING LINZESS 290 MCG CAPSULE 1 CAPSULE ORALLY ONCE A DAY TAKING TRAZODONE HCL 100 MG TABLET 1 TABLET AT BEDTIME ORALLY ONCE A DAY TAKING COLACE 100 MG CAPSULE 1 CAPSULE NEEDED ORALLY BID TAKING TRAMADOL HCL 50 MG TABLET 1 TAB ORALLY Q6H PRN MDD4 NOT-TAKING MORPHINE SULFATE ER 15 MG TABLET EXTENDED RELEASE 1 TABLET ORALLY DAILY NOT-TAKING MELOXICAM 7.5 MG TABLET 1 TABLET ORALLY BID NOT-TAKING TRIAMCINOLONE ACETONIDE 0.025 % CREAM 1 APPLICATION TO AFFECTED AREA EXTERNALLY TWICE A DAY NOT-TAKING CLOTRIMAZOLE 1 % CREAM 1 APPLICATION TO AFFECTED AREA EXTERNALLY TWICE A DAY NOT-TAKING ERGOCALCIFEROL 90087 UNIT CAPSULE 1 CAPSULE ORALLY WEEKLY NOT-TAKING CARAFATE 1 GM TABLET 1 TABLET ON AN EMPTY STOMACH ORALLY TWICE A DAY NOT-TAKING COLACE 100 MG CAPSULE 1 CAPSULE NEEDED ORALLY ONCE A DAY MEDICATION LIST REVIEWED AND RECONCILED WITH THE PATIENT PAST MEDICAL HISTORY GERD OSTEOPOROSIS HYPERLIPID CHRONIC PAIN CONSTIPATION ALLERGIES N.K.D.A. SURGICAL HISTORY CSECTION 1974 HYSTERECTOMY 1974 CHOLECYSTECTOMY 2007 LASER DISKECTOMYVAT L5-S1 2007 FAMILY HISTORY FATHER: 68 YRS, DIAGNOSED WITH HYPERTENSION, HEART DISEASE MOTHER: , OTHER 1 BROTHER(S) , 5 SISTER(S) . 2 SON(S) . 1 SISTER IS - CAR ACCIDENT ONE BROTHER IS - DIABETES AND HEART ISSUES ONE SON FROM CAR ACCIDENTMOTHER--COPD. SOCIAL HISTORY GENERAL: TOBACCO USE ARE YOU A:CURRENT SMOKER ARE YOU INTERESTED IN QUITTING?NOT READY TO QUIT STATES SHE HAS CUT DOWN BUT THIS IS THE ONLY ENJOYMENT SHE GETS OUT OF LIFE. COUNSELED THE PATIENT ON SMOKING EFFECTS, EDUCATION [id number]/13/2018 HOW MANY CIGARETTES A DAY DO YOU SMOKE?6-10 HOW SOON AFTER YOU WAKE UP DO YOU SMOKE YOUR FIRST CIGARETTE?31-60 MIN HOW OFTEN DO YOU SMOKE CIGARETTES?EVERY DAY PATIENT COUNSELED ON THE DANGERS OF TOBACCO USE AND URGED TO QUIT:05/25/2018 LATEX QUESTIONNAIRE LATEX ALLERGY : HAVE YOU EVER DEVELOPED ANY TYPE OF REACTION AFTER HANDLING LATEX PRODUCTS SUCH RUBBER GLOVES, CONDOMS, DIAPHRAGMS, BALLOONS, SOCKS, OR UNDERWEAR?NO LATEX ALLERGY : HAVE YOU EVER DEVELOPED ANY TYPE OF REACTION DURING OR AFTER DENTAL APPOINTMENT, VAGINAL/RECTAL EXAMINATION, SURGICAL PROCEDURE, OR ANY OTHER EXPOSURE?NO LATEX RISK : HAVE YOU EVER HAD ANY DIFFICULTY BREATHING OR HIVES AFTER EATING OR HANDLING ANY FRUITS, OR VEGETABLES; SUCH KIWI, BANANAS, STONE FRUITS, OR CHESTNUTSNO LATEX RISK : DO YOU HAVE A PREVIOUS PERSONAL HISTORY OF MORE THAN NINE SURGERIES, SPINA BIFIDA, OR REPEATED CATHERTIZATIONS? NO LATEX RISK : ARE YOU FREQUENTLY EXPOSED TO LATEX PRODUCTS IN YOUR OCCUPATION?NO DATE ASKED : 05/25/2018 ALCOHOL SCREENING DID YOU HAVE A DRINK CONTAINING ALCOHOL IN THE PAST YEAR?NO POINTS0 INTERPRETATIONNEGATIVE RECREATIONAL DRUG USE DRUG USE?NO CAFFEINE CAFFEINE USE?YES HOW OFTEN AND HOW MUCH? 3-4 POTS COFFEE/DAY EPISCOPALIAN [id number] ALEVISM NO HOAHAOISM BELIEFS THAT WOULD IMPACT HEALTH CARE. LANGUAGE LANGUAGES SPOKEN:MALDIVIAN LEARNING BARRIERS / SPECIAL NEEDS BARRIERS TO LEARNING?NO HEARING IMPAIRED?NO VISION IMPAIRED?YES :CORRECTIVE LENSES COGNITIVELY IMPAIRED?NO READINESS TO LEARN?YES LEARNING PREFERENCES?YES :DEMONSTRATION/VERBAL INSTRUCTION LEARNING CAPABILITIES PRESENT?YES EMOTIONAL BARRIERS?NO SPECIAL DEVICES?YES :CANE USES IT OCCASSIONALLY INSECTICIDE SUPERVISOR NEEDED?NO DOMESTIC VIOLENCE DO YOU FEEL SAFE IN YOUR ENVIRONMENT?YES NEW PATIENT PAIN DIARY FROM 0-10, WHAT LEVEL IS YOUR PAIN TODAY?5 PAIN CLINIC PFS, CLERGY, PUBLIC HEALTH REFERRALS PFS REFERRAL NEEDED?NO CLERGY REFERRAL NEEDED?NO PUBLIC HEALTH REFERRAL NEEDED?NO WAS THE PROVIDER NOTIFIED OF ANY PERTINENT INFO?YES N//A HAS THE PATIENT BEEN EDUCATED REGARDING HIS/HER PLAN OF CARE?YES HAS THE PATIENT BEEN EDUCATED REGARDING PAIN, THE RISK FOR PAIN, THE IMPORTANCE OF EFFECTIVE PAIN MANAGEMENT, AND THE PAIN ASSESSMENT PROCESS?YES ADVANCE DIRECTIVE ADVANCE DIRECTIVE DISCUSSED WITH PATIENT:YES PT NOT READY TO CHANGE HCP AT THIS TIME. HOSPITALIZATION/MAJOR DIAGNOSTIC PROCEDURE CSECTION AND HYSTERECTOMY REVIEW OF SYSTEMS REVIEWED BY: PROVIDER: BARRY AMOR . CONSTITUTIONAL: ANY CHANGE IN YOUR MEDICAL CONDITION? NO . CHILLS NO . FEVER NO . INFECTION: DO YOU HAVE NEW INFECTIONS? NO . DO YOU HAVE HISTORY OF MRSA? NO . MUSCULOSKELETAL: ANY NEW PATTERNS OF PAIN OR NUMBNESS? YES, RIGHT ARM IS THROBBING, ACHE, UP INTO SHOULDER . GASTROENTEROLOGY: ANY NEW CHANGE IN BOWEL CONTROL? NO . GENITOURINARY: ANY NEW CHANGE IN BLADDER CONTROL? YES, FREQUENCY . IS THERE A CHANCE YOU COULD BE ? NO . HEMATOLOGY/LYMPH: DO YOU TAKE ANY BLOOD THINNERS? (FOR EXAMPLE- COUMADIN, PLAVIX, AGGRENOX, PLATEL, PRADAXA, OR XARELTO) NO . WHEN WAS YOUR LAST DOSE? DATE: TIME: . NEUROLOGY: HAVE YOU FALLEN IN THE PAST 12 MONTHS? NO . ANY NEW EXTREMITY NUMBNESS OR WEAKNESS? YES, RIGHT SIDE WEAKNESS . CARDIOLOGY: DO YOU HAVE A PACEMAKER OR DEFIBRILLATOR? NO . RESPIRATORY: HAVE YOU BEEN SICK IN THE PAST WEEK? NO . FEVER NO . FLU LIKE SYMPTOMS? NO . COUGH NO . INTEGUMENTARY: DO YOU HAVE ANY RASHES OR OPEN SORES? NO . ALLERGIC/IMMUNO: ARE YOU ALLERGIC TO IV DYE? NO . ANY NEW ALLERGIES? NO . PSYCHIATRIC: DO YOU HAVE THOUGHTS OF HURTING YOURSELF OR SOMEONE ELSE? NO . ARE YOU ABUSED, NEGLECTED, OR IN AN UNSAFE ENVIRONMENT? NO . ENDOCRINOLOGY: ARE YOU DIABETIC? NO . OTHER: DO YOU NEED ANY PRESCRIPTIONS? NO . IF YES, PLEASE LIST: ____ . ANY NEW PROBLEMS WITH YOUR MEDICATIONS? MORPHINE AND MOBIC CAUSED ITCHING, STOPPED TAKING AFTER 5 DAYS. . WHEN DID YOU LAST EAT? ____ . WHEN DID YOU LAST DRINK? ____ . WHAT DID YOU LAST DRINK? ____ . NAME OF PERSON DRIVING YOU HOME? ____ . DO YOU HAVE ANY OTHER QUESTIONS OR CONCERNS NO . VITAL SIGNS WT 97.8 LBS, HT 56 IN, BMI 21.92 INDEX, BP 134/68 MM HG, HR 75 /MIN, RR 16 /MIN, TEMP 98.8 F, OXYGEN SAT % 94%, SAFE IN ENV? (Y/N) Y, NA INITIALS MA 09:46, REVIEWED BY: CHUCK. EXAMINATION GENERAL EXAMINATION: GENERAL APPEARANCE:AWAKE,ALERT ,PLEAASANT . PSYCHAFFECT NORMAL . LUNGS:LUNG STEWARD ARE CLEAR TO AUSCULTATION BILATERALLY. GOOD MOVEMENT OF AIR . HEART:S1, S2 IN A REGULAR RATE AND RHYTHM. NO SIGNIFICANT MURMURS, RUBS OR GALLOPS NOTED . MUSCULOSKELETAL:RIGHT HAND RESIDENT SERVICES COORDINATOR STRENGTH WEAK C/W LEFT + TINELLS RIGHT RADIAL. 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 PROCEDURE CODES FA211 ESTABILISHED PATIENT [facility] CHARGE DISPOSITION & COMMUNICATION FOLLOW UP POST, 6 WEEKS (REASON: NSCS RIGHT UPPER-REFER TO [facility] NEUROLOG[facility]) ELECTRONICALLY SIGNED BY ZULEYMA SWANSON ON 06/08/2018 AT 03:08 PM EDT DISCLAIMER : THIS IS A VISIT SUMMARY EXTRACTED FROM THE [employer] [facility] CHART. IT IS NOT A COPY OF THE [employer] PROGRESS NOTE. RIZWANA
== END ==
LOC: M PAIN 10:00
PROVIDERS: ATTEND Nurse Practitioner Family
DX: G56.91 Unspecified mononeuropathy of right upper limb (principal); M54.5 Low back pain; M54.2 Cervicalgia; K21.9 Gastro-esophageal reflux disease without esophagitis; M81.0 Age-related osteoporosis without current pathological fracture; E78.5 Hyperlipidemia, unspecified; F17.210 Nicotine dependence, cigarettes, uncomplicated; Z79.82 Long term (current) use of aspirin; Z79.891 Long term (current) use of opiate analgesic; Z79.899 Other long term (current) drug therapy

== ENCOUNTER → 2018-07-13 | Outpatient (CLI) | payer OTHER, MEDICAID ==
[~2018-07-13] MED LIST changes: -DULO30CA PO; +DULO30CA9 PO
--- NOTE | 2018-08-08 01:03 | ECWPNPC ---
PATIENT NAME: MARY PEÑA : 1950 GENDER: FEMALE VISIT DATE: 07/13/2018 DISCHARGE DATE: 07/13/18 1002 VISIT LOCKED DATE TIME: PHYSICIAN: BARRY DUMONT RESOURCE: BARRY DUMONT REASON FOR APPOINTMENT 1. BACK/NECK HISTORY OF PRESENT ILLNESS HISTORY OF PRESENT ILLNESS: HERE FOR F/U OF CHRONIC NECK /LOW BACK PAIN.CHIEF AREA OF PAIN IS RIGHT ARM.COMPLAINING OF RESTLESS FEELING IN RIGHT ARM.RATING PAIN VAS 9/10. PAIN THE PATIENT DESCRIBES THE PAIN... FALL RISK SCREENING: SCREENING :NO FALLS REPORTED IN THE LAST YEAR CURRENT MEDICATIONS TAKING CYMBALTA 60 MG CAPSULE DELAYED RELEASE PARTICLES 1 CAPSULE ORALLY ONCE A DAY TAKING METOPROLOL SUCCINATE ER 25 MG TABLET EXTENDED RELEASE 24 HOUR 1/2 TABLET ORALLY BID TAKING RALOXIFENE HCL 60 MG TABLET 1 TABLET ORALLY ONCE A DAY TAKING RAMIPRIL 2.5 MG CAPSULE 1 CAPSULE ORALLY ONCE A DAY TAKING ASPIR-81 81 MG TABLET DELAYED RELEASE 1 TABLET ORALLY ONCE A DAY TAKING VITAMIN D 1000 UNIT TABLET 1 TABLET ORALLY BID TAKING OMEPRAZOLE 40 MG CAPSULE DELAYED RELEASE 1 CAPSULE ORALLY BID TAKING MIRALAX - POWDER 1 PACKET MIXED WITH 8 OUNCES OF FLUID ORALLY BID TAKING STIOLTO RESPIMAT 2.5-2.5 MCG/ACT AEROSOL SOLUTION 2 PUFFS INHALATION ONCE A DAY TAKING LINZESS 290 MCG CAPSULE 1 CAPSULE ORALLY ONCE A DAY TAKING TRAZODONE HCL 100 MG TABLET 1 TABLET AT BEDTIME ORALLY ONCE A DAY TAKING COLACE 100 MG CAPSULE 1 CAPSULE NEEDED ORALLY BID TAKING TRAMADOL HCL 50 MG TABLET 1 TAB ORALLY Q6H PRN MDD4 TAKING GABAPENTIN 100 MG CAPSULE 1 CAPSULE ORALLY BEFORE BEDTIME NOT-TAKING MORPHINE SULFATE ER 15 MG TABLET EXTENDED RELEASE 1 TABLET ORALLY DAILY NOT-TAKING MELOXICAM 7.5 MG TABLET 1 TABLET ORALLY BID NOT-TAKING TRIAMCINOLONE ACETONIDE 0.025 % CREAM 1 APPLICATION TO AFFECTED AREA EXTERNALLY TWICE A DAY NOT-TAKING CLOTRIMAZOLE 1 % CREAM 1 APPLICATION TO AFFECTED AREA EXTERNALLY TWICE A DAY NOT-TAKING ERGOCALCIFEROL 66001 UNIT CAPSULE 1 CAPSULE ORALLY WEEKLY NOT-TAKING CARAFATE 1 GM TABLET 1 TABLET ON AN EMPTY STOMACH ORALLY TWICE A DAY NOT-TAKING COLACE 100 MG CAPSULE 1 CAPSULE NEEDED ORALLY ONCE A DAY MEDICATION LIST REVIEWED AND RECONCILED WITH THE PATIENT PAST MEDICAL HISTORY GERD OSTEOPOROSIS HYPERLIPID CHRONIC PAIN 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 SURGICAL HISTORY CSECTION 1974 HYSTERECTOMY 1975 CHOLECYSTECTOMY 2007 LASER DISKECTOMYVAT L5-S1 2007 FAMILY HISTORY FATHER: 68 YRS, DIAGNOSED WITH HYPERTENSION, HEART DISEASE MOTHER: , OTHER 1 BROTHER(S) , 5 SISTER(S) . 2 SON(S) . 1 SISTER IS - CAR ACCIDENT ONE BROTHER IS - DIABETES AND HEART ISSUES ONE SON FROM CAR ACCIDENT\NMOTHER--COPD. SOCIAL HISTORY GENERAL: TOBACCO USE ARE YOU A:CURRENT SMOKER ARE YOU INTERESTED IN QUITTING?NOT READY TO QUIT STATES SHE HAS CUT DOWN BUT THIS IS THE ONLY ENJOYMENT SHE GETS OUT OF LIFE. COUNSELED THE PATIENT ON SMOKING EFFECTS, EDUCATION [id number]/13/2018 HOW MANY CIGARETTES A DAY DO YOU SMOKE?6-10 HOW SOON AFTER YOU WAKE UP DO YOU SMOKE YOUR FIRST CIGARETTE?31-60 MIN HOW OFTEN DO YOU SMOKE CIGARETTES?EVERY DAY PATIENT COUNSELED ON THE DANGERS OF TOBACCO USE AND URGED TO QUIT:07/13/2018 PAIN CLINIC PFS, CLERGY, PUBLIC HEALTH REFERRALS PFS REFERRAL NEEDED?NO CLERGY REFERRAL NEEDED?NO PUBLIC HEALTH REFERRAL NEEDED?NO WAS THE PROVIDER NOTIFIED OF ANY PERTINENT INFO?YES N//A HAS THE PATIENT BEEN EDUCATED REGARDING HIS/HER PLAN OF CARE?YES HAS THE PATIENT BEEN EDUCATED REGARDING PAIN, THE RISK FOR PAIN, THE IMPORTANCE OF EFFECTIVE PAIN MANAGEMENT, AND THE PAIN ASSESSMENT PROCESS?YES LATEX QUESTIONNAIRE LATEX ALLERGY : HAVE YOU EVER DEVELOPED ANY TYPE OF REACTION AFTER HANDLING LATEX PRODUCTS SUCH RUBBER GLOVES, CONDOMS, DIAPHRAGMS, BALLOONS, SOCKS, OR UNDERWEAR?NO LATEX ALLERGY : HAVE YOU EVER DEVELOPED ANY TYPE OF REACTION DURING OR AFTER DENTAL APPOINTMENT, VAGINAL/RECTAL EXAMINATION, SURGICAL PROCEDURE, OR ANY OTHER EXPOSURE?NO LATEX RISK : HAVE YOU EVER HAD ANY DIFFICULTY BREATHING OR HIVES AFTER EATING OR HANDLING ANY FRUITS, OR VEGETABLES; SUCH KIWI, BANANAS, STONE FRUITS, OR CHESTNUTSNO LATEX RISK : DO YOU HAVE A PREVIOUS PERSONAL HISTORY OF MORE THAN NINE SURGERIES, SPINA BIFIDA, OR REPEATED CATHERTIZATIONS? NO LATEX RISK : ARE YOU FREQUENTLY EXPOSED TO LATEX PRODUCTS IN YOUR OCCUPATION?NO DATE ASKED : 07/13/2018 CAFFEINE CAFFEINE USE?YES HOW OFTEN AND HOW MUCH? 3-4 POTS COFFEE/DAY ADVANCE DIRECTIVE ADVANCE DIRECTIVE DISCUSSED WITH PATIENT:YES PT NOT READY TO CHANGE HCP AT THIS TIME. RESTORATIONISM [id number] ANGLICAN NO MANDAEN BELIEFS THAT WOULD IMPACT HEALTH CARE. LANGUAGE LANGUAGES SPOKEN:YAKUT DOMESTIC VIOLENCE DO YOU FEEL SAFE IN YOUR ENVIRONMENT?YES NEW PATIENT PAIN DIARY FROM 0-10, WHAT LEVEL IS YOUR PAIN TODAY?5 ALCOHOL SCREENING DID YOU HAVE A DRINK CONTAINING ALCOHOL IN THE PAST YEAR?NO POINTS0 INTERPRETATIONNEGATIVE RECREATIONAL DRUG USE DRUG USE?NO LEARNING BARRIERS / SPECIAL NEEDS BARRIERS TO LEARNING?NO HEARING IMPAIRED?NO VISION IMPAIRED?YES :CORRECTIVE LENSES COGNITIVELY IMPAIRED?NO READINESS TO LEARN?YES LEARNING PREFERENCES?YES :DEMONSTRATION/VERBAL INSTRUCTION LEARNING CAPABILITIES PRESENT?YES EMOTIONAL BARRIERS?NO SPECIAL DEVICES?YES :CANE USES IT OCCASSIONALLY MATERIALS BRANCH CHIEF NEEDED?NO HOSPITALIZATION/MAJOR DIAGNOSTIC PROCEDURE CSECTION AND HYSTERECTOMY REVIEW OF SYSTEMS REVIEWED BY: PROVIDER: BARRY AMOR . CONSTITUTIONAL: ANY CHANGE IN YOUR MEDICAL CONDITION? YES, PINCHED NERVES AND CARPAL TUNNEL, RESTLESS ARM SYNDROME . CHILLS NO . FEVER NO . INFECTION: DO YOU HAVE NEW INFECTIONS? NO . DO YOU HAVE HISTORY OF MRSA? NO . MUSCULOSKELETAL: ANY NEW PATTERNS OF PAIN OR NUMBNESS? YES, RIGHT ARM . GASTROENTEROLOGY: ANY NEW CHANGE IN BOWEL CONTROL? NO . GENITOURINARY: ANY NEW CHANGE IN BLADDER CONTROL? YES, URGENCY AND FREQUENCY, GOING TO SEE PCP NEXT WEEK . IS THERE A CHANCE YOU COULD BE ? NO . HEMATOLOGY/LYMPH: DO YOU TAKE ANY BLOOD THINNERS? (FOR EXAMPLE- COUMADIN, PLAVIX, AGGRENOX, PLATEL, PRADAXA, OR XARELTO) NO . WHEN WAS YOUR LAST DOSE? DATE: TIME: . NEUROLOGY: HAVE YOU FALLEN IN THE PAST 12 MONTHS? YES, PT STATES THAT SHE WAS HOME, FELL DOWN STAIRS, BRUSING, NO REPORT TO ED. . ANY NEW EXTREMITY NUMBNESS OR WEAKNESS? YES . CARDIOLOGY: DO YOU HAVE A PACEMAKER OR DEFIBRILLATOR? NO . RESPIRATORY: HAVE YOU BEEN SICK IN THE PAST WEEK? NO . FEVER NO . FLU LIKE SYMPTOMS? NO . COUGH NO . INTEGUMENTARY: DO YOU HAVE ANY RASHES OR OPEN SORES? NO . ALLERGIC/IMMUNO: ARE YOU ALLERGIC TO IV DYE? NO . ANY NEW ALLERGIES? NO . PSYCHIATRIC: DO YOU HAVE THOUGHTS OF HURTING YOURSELF OR SOMEONE ELSE? NO . ARE YOU ABUSED, NEGLECTED, OR IN AN UNSAFE ENVIRONMENT? NO . ENDOCRINOLOGY: ARE YOU DIABETIC? NO . OTHER: DO YOU NEED ANY PRESCRIPTIONS? YES, PT IS HAVING MIGRAINES, WOULD LIKE SOMETHING TO HELP WITH THEM . IF YES, PLEASE LIST: ____ . ANY NEW PROBLEMS WITH YOUR MEDICATIONS? NO . WHEN DID YOU LAST EAT? ____ . WHEN DID YOU LAST DRINK? ____ . WHAT DID YOU LAST DRINK? ____ . NAME OF PERSON DRIVING YOU HOME? ____ . DO YOU HAVE ANY OTHER QUESTIONS OR CONCERNS NO . VITAL SIGNS WT 95.6 LBS, HT 56 IN, BMI 21.43 INDEX, BP 123/67 MM HG, HR 62 /MIN, RR 16 /MIN, TEMP 100.0 F, OXYGEN SAT % 95%, SAFE IN ENV? (Y/N) Y, REVIEWED BY: CHUCK. EXAMINATION GENERAL EXAMINATION: LUNGS: LUNG SOUNDS ARE CLEAR . HEART: HEART RATE REGULAR . MUSCULOSKELETAL:*, MUSCLE STRENGTH TESTING 5/5 BILATERAL UPPER EXTREMITIES. . CERVICAL+ FOR PAIN WITH PALPATION OF CERVICAL SPINE. + FOR PAIN WITH PALPATION OF CERVICAL PARASPINALS. . DIAGNOSTIC TESTS REVIEWED CERVICAL MRI-05/16/18 NCS UPPER EXTREMITIES-06/21/18. ASSESSMENTS CERVICAL RADICULOPATHY - M54.12 (PRIMARY) ARTHROPATHY - M12.9 TREATMENT CERVICAL RADICULOPATHY CONTINUE TRAMADOL HCL TABLET, 50 MG, 1 TAB, ORALLY, Q6H PRN MDD4 CONTINUE COLACE CAPSULE, 100 MG, 1 CAPSULE NEEDED, ORALLY, BID INCREASE GABAPENTIN CAPSULE, 100 MG, 1 CAPSULE, ORALLY, 1 IN AM,1 MIDDAY,2 AT HS, 30 DAY(S), 120, REFILLS 2 NOTES: C5/6 CHANTAL, ISTOP REGISTRY REVIEWED AND DEMONSTRATES COMPLLIANCE. (REF # ) BRINGS IN MEDICATIONS WHICH IS APPROPRIATE FOR WHAT WAS DISPENSED. RECENT URINE TOXICOLOGY REVIEWED. NO UNAUTHORIZED MEDICATIONS. NO ILLICIT SUBSTANCES AND PRESCRIBED MEDICATIONS WERE PRESENT. ARTHROPATHY REFILL TRAZODONE HCL TABLET, 100 MG, 1 TABLET AT BEDTIME, ORALLY, ONCE A DAY, 30 DAYS, 30 TABLET, REFILLS 2 PROCEDURE CODES FA211 ESTABILISHED PATIENT [facility] FACILITY CHARGE DISPOSITION & COMMUNICATION FOLLOW UP POST (REASON: C5/6 CHANTAL) ELECTRONICALLY SIGNED BY ZULEYMA SWANSON ON 08/07/2018 AT 08:13 AM EDT DISCLAIMER : THIS IS A VISIT SUMMARY EXTRACTED FROM THE [facility] CHART. IT IS NOT A COPY OF THE [employer] PROGRESS NOTE. MTDD
== END ==
LOC: M PAIN 09:45
PROVIDERS: ATTEND Nurse Practitioner Family
DX: M54.12 Radiculopathy, cervical region (principal); M12.9 Arthropathy, unspecified; G89.29 Other chronic pain; K21.9 Gastro-esophageal reflux disease without esophagitis; M81.0 Age-related osteoporosis without current pathological fracture; F17.210 Nicotine dependence, cigarettes, uncomplicated; Z79.82 Long term (current) use of aspirin; Z79.891 Long term (current) use of opiate analgesic; Z79.899 Other long term (current) drug therapy

== ENCOUNTER → 2018-08-29 | Outpatient (CLI) | payer MEDICARE, MEDICAID, OTHER ==
[~2018-08-29] MED LIST changes: +CYAN100049 PO; -DULO1CAP3 PO; +DULO1CAP6 PO; +ISOVUE-M 300 61% 15ML VIAL (Q9967) As Ordered ONE; +LIDOCAINE 1% SDV INJ 30 ML VIAL As Ordered ONE; -TRAZ-160 PO; +TRAZ-252 PO; -VITA10002 PO; +diazePAM 5 MG TAB As Ordered ONE; +methylPREDNISolone SUSP 40 MG/ML (DEPO-medrol) VIAL (J1030) As Ordered ONE
--- NOTE | 2018-08-29 11:31 | REP ---
CERVICAL SPINE: Limited study two views. HISTORY: Cervical epidural steroid injection for pain. 10 seconds of fluoroscopy time is reported. FINDINGS: A sequence of two last image hold fluoroscopically obtained spot radiographs of the cervicothoracic junction document needle position and contrast injection associated with injection procedure. Electronically Signed by Enio Harvey MD 08/29/2018 11:53 A
--- NOTE | 2018-09-10 01:12 | ECWPNPC ---
PATIENT NAME: MARY PEÑA : 1950 GENDER: FEMALE VISIT DATE: 08/29/2018 DISCHARGE DATE: 08/29/18 1039 VISIT LOCKED DATE TIME: PHYSICIAN: MATA JOHNS MD RESOURCE: MAAT JOHNS MD REASON FOR APPOINTMENT 1. CHANTAL HISTORY OF PRESENT ILLNESS HISTORY OF PRESENT ILLNESS: PAIN THE PATIENT DESCRIBES THE PAIN... FALL RISK SCREENING: SCREENING :NO FALLS REPORTED IN THE LAST YEAR CURRENT MEDICATIONS TAKING CYMBALTA 60 MG CAPSULE DELAYED RELEASE PARTICLES 1 CAPSULE ORALLY ONCE A DAY, NOTES: 08-28-18 TAKING METOPROLOL SUCCINATE ER 25 MG TABLET EXTENDED RELEASE 24 HOUR 1/2 TABLET ORALLY BID, NOTES: 08-28-182099 TAKING RALOXIFENE HCL 60 MG TABLET 1 TABLET ORALLY ONCE A DAY, NOTES: 08-28 TAKING ASPIR-81 81 MG TABLET DELAYED RELEASE 1 TABLET ORALLY ONCE A DAY, NOTES: 08-28-18899 TAKING VITAMIN D 1000 UNIT TABLET 1 TABLET ORALLY BID, NOTES: 08-28-18799 TAKING OMEPRAZOLE 40 MG CAPSULE DELAYED RELEASE 1 CAPSULE ORALLY BID, NOTES: 08-28-18899 TAKING MIRALAX - POWDER 1 PACKET MIXED WITH 8 OUNCES OF FLUID ORALLY BID, NOTES: 08-28-18799 TAKING STIOLTO RESPIMAT 2.5-2.5 MCG/ACT AEROSOL SOLUTION 2 PUFFS INHALATION ONCE A DAY, NOTES: 08-28-182099 TAKING LINZESS 290 MCG CAPSULE 1 CAPSULE ORALLY ONCE A DAY, NOTES: 08-28-18799 TAKING TRAMADOL HCL 50 MG TABLET 1 TAB ORALLY Q6H PRN MDD4, NOTES: 08-29-18699 TAKING COLACE 100 MG CAPSULE 1 CAPSULE NEEDED ORALLY BID, NOTES: 08-28-18699 TAKING GABAPENTIN 100 MG CAPSULE 1 CAPSULE ORALLY 1 IN AM,1 MIDDAY,2 AT HS, NOTES: 08-28-182099 TAKING TRAZODONE HCL 100 MG TABLET 1 TABLET AT BEDTIME ORALLY ONCE A DAY, NOTES: 08-28-182099 NOT-TAKING RAMIPRIL 2.5 MG CAPSULE 1 CAPSULE ORALLY ONCE A DAY NOT-TAKING MORPHINE SULFATE ER 15 MG TABLET EXTENDED RELEASE 1 TABLET ORALLY DAILY NOT-TAKING MELOXICAM 7.5 MG TABLET 1 TABLET ORALLY BID NOT-TAKING TRIAMCINOLONE ACETONIDE 0.025 % CREAM 1 APPLICATION TO AFFECTED AREA EXTERNALLY TWICE A DAY NOT-TAKING CLOTRIMAZOLE 1 % CREAM 1 APPLICATION TO AFFECTED AREA EXTERNALLY TWICE A DAY NOT-TAKING ERGOCALCIFEROL 74006 UNIT CAPSULE 1 CAPSULE ORALLY WEEKLY NOT-TAKING CARAFATE 1 GM TABLET 1 TABLET ON AN EMPTY STOMACH ORALLY TWICE A DAY NOT-TAKING COLACE 100 MG CAPSULE 1 CAPSULE NEEDED ORALLY ONCE A DAY MEDICATION LIST REVIEWED AND RECONCILED WITH THE PATIENT PAST MEDICAL HISTORY GERD OSTEOPOROSIS HYPERLIPID CHRONIC PAIN 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 SURGICAL HISTORY CSECTION 1974 HYSTERECTOMY 1974 CHOLECYSTECTOMY 2007 LASER DISKECTOMYVAT L5-S1 2007 FAMILY HISTORY FATHER: 68 YRS, DIAGNOSED WITH HYPERTENSION, HEART DISEASE MOTHER: , OTHER 1 BROTHER(S) , 5 SISTER(S) . 2 SON(S) . 1 SISTER IS - CAR ACCIDENT ONE BROTHER IS - DIABETES AND HEART ISSUES ONE SON FROM CAR ACCIDENT\NMOTHER--COPD. SOCIAL HISTORY GENERAL: TOBACCO USE ARE YOU A:CURRENT SMOKER ARE YOU INTERESTED IN QUITTING?NOT READY TO QUIT STATES SHE HAS CUT DOWN BUT THIS IS THE ONLY ENJOYMENT SHE GETS OUT OF LIFE. COUNSELED THE PATIENT ON SMOKING EFFECTS, EDUCATION [id number]/13/2018 HOW MANY CIGARETTES A DAY DO YOU SMOKE?6-10 HOW SOON AFTER YOU WAKE UP DO YOU SMOKE YOUR FIRST CIGARETTE?31-60 MIN HOW OFTEN DO YOU SMOKE CIGARETTES?EVERY DAY PATIENT COUNSELED ON THE DANGERS OF TOBACCO USE AND URGED TO QUIT:07/13/2018 SMOKING CESSATION INFORMATION GIVEN08/29/2018 PAIN CLINIC PFS, CLERGY, PUBLIC HEALTH REFERRALS PFS REFERRAL NEEDED?NO CLERGY REFERRAL NEEDED?NO PUBLIC HEALTH REFERRAL NEEDED?NO WAS THE PROVIDER NOTIFIED OF ANY PERTINENT INFO?YES N//A HAS THE PATIENT BEEN EDUCATED REGARDING HIS/HER PLAN OF CARE?YES HAS THE PATIENT BEEN EDUCATED REGARDING PAIN, THE RISK FOR PAIN, THE IMPORTANCE OF EFFECTIVE PAIN MANAGEMENT, AND THE PAIN ASSESSMENT PROCESS?YES LATEX QUESTIONNAIRE LATEX ALLERGY : HAVE YOU EVER DEVELOPED ANY TYPE OF REACTION AFTER HANDLING LATEX PRODUCTS SUCH RUBBER GLOVES, CONDOMS, DIAPHRAGMS, BALLOONS, SOCKS, OR UNDERWEAR?NO LATEX ALLERGY : HAVE YOU EVER DEVELOPED ANY TYPE OF REACTION DURING OR AFTER DENTAL APPOINTMENT, VAGINAL/RECTAL EXAMINATION, SURGICAL PROCEDURE, OR ANY OTHER EXPOSURE?NO LATEX RISK : HAVE YOU EVER HAD ANY DIFFICULTY BREATHING OR HIVES AFTER EATING OR HANDLING ANY FRUITS, OR VEGETABLES; SUCH KIWI, BANANAS, STONE FRUITS, OR CHESTNUTSNO LATEX RISK : DO YOU HAVE A PREVIOUS PERSONAL HISTORY OF MORE THAN NINE SURGERIES, SPINA BIFIDA, OR REPEATED CATHERTIZATIONS? NO LATEX RISK : ARE YOU FREQUENTLY EXPOSED TO LATEX PRODUCTS IN YOUR OCCUPATION?NO DATE ASKED : 07/13/2018 CAFFEINE CAFFEINE USE?YES HOW OFTEN AND HOW MUCH? 3-4 POTS COFFEE/DAY ADVANCE DIRECTIVE ADVANCE DIRECTIVE DISCUSSED WITH PATIENT:YES PT NOT READY TO CHANGE HCP AT THIS TIME. EPISCOPAL [id number] UATSDIN NO TAOIST BELIEFS THAT WOULD IMPACT HEALTH CARE. LANGUAGE LANGUAGES SPOKEN:MACEDONIAN DOMESTIC VIOLENCE DO YOU FEEL SAFE IN YOUR ENVIRONMENT?YES NEW PATIENT PAIN DIARY FROM 0-10, WHAT LEVEL IS YOUR PAIN TODAY?5 ALCOHOL SCREENING DID YOU HAVE A DRINK CONTAINING ALCOHOL IN THE PAST YEAR?NO POINTS0 INTERPRETATIONNEGATIVE RECREATIONAL DRUG USE DRUG USE?NO LEARNING BARRIERS / SPECIAL NEEDS BARRIERS TO LEARNING?NO HEARING IMPAIRED?NO VISION IMPAIRED?YES :CORRECTIVE LENSES COGNITIVELY IMPAIRED?NO READINESS TO LEARN?YES LEARNING PREFERENCES?YES :DEMONSTRATION/VERBAL INSTRUCTION LEARNING CAPABILITIES PRESENT?YES EMOTIONAL BARRIERS?NO SPECIAL DEVICES?YES :CANE USES IT OCCASSIONALLY SURGICAL APPLIANCES SALESPERSON NEEDED?NO HOSPITALIZATION/MAJOR DIAGNOSTIC PROCEDURE CSECTION AND HYSTERECTOMY REVIEW OF SYSTEMS REVIEWED BY: PROVIDER: . CONSTITUTIONAL: ANY CHANGE IN YOUR MEDICAL CONDITION? NO . CHILLS NO . FEVER NO . INFECTION: DO YOU HAVE NEW INFECTIONS? NO . DO YOU HAVE HISTORY OF MRSA? NO . MUSCULOSKELETAL: ANY NEW PATTERNS OF PAIN OR NUMBNESS? NO . GASTROENTEROLOGY: ANY NEW CHANGE IN BOWEL CONTROL? NO . GENITOURINARY: ANY NEW CHANGE IN BLADDER CONTROL? NO . IS THERE A CHANCE YOU COULD BE ? NO . HEMATOLOGY/LYMPH: DO YOU TAKE ANY BLOOD THINNERS? (FOR EXAMPLE- COUMADIN, PLAVIX, AGGRENOX, PLATEL, PRADAXA, OR XARELTO) NO . WHEN WAS YOUR LAST DOSE? DATE: TIME: . NEUROLOGY: HAVE YOU FALLEN IN THE PAST 12 MONTHS? NO . ANY NEW EXTREMITY NUMBNESS OR WEAKNESS? NO . CARDIOLOGY: DO YOU HAVE A PACEMAKER OR DEFIBRILLATOR? NO . RESPIRATORY: HAVE YOU BEEN SICK IN THE PAST WEEK? NO . FEVER NO . FLU LIKE SYMPTOMS? NO . COUGH NO . INTEGUMENTARY: DO YOU HAVE ANY RASHES OR OPEN SORES? NO . ALLERGIC/IMMUNO: ARE YOU ALLERGIC TO IV DYE? NO . ANY NEW ALLERGIES? NO . PSYCHIATRIC: DO YOU HAVE THOUGHTS OF HURTING YOURSELF OR SOMEONE ELSE? NO . ARE YOU ABUSED, NEGLECTED, OR IN AN UNSAFE ENVIRONMENT? NO . ENDOCRINOLOGY: ARE YOU DIABETIC? NO . OTHER: DO YOU NEED ANY PRESCRIPTIONS? NO . IF YES, PLEASE LIST: ____ . ANY NEW PROBLEMS WITH YOUR MEDICATIONS? NO . WHEN DID YOU LAST EAT? ____08-28-18 2100 . WHEN DID YOU LAST DRINK? ____ . WHAT DID YOU LAST DRINK? ____[id number] . NAME OF PERSON DRIVING YOU HOME? __YEIMI PAYTON . VITAL SIGNS WT 92.2 LBS, HT 56 IN, BMI 20.67 INDEX, BP 132/54 MM HG, HR 55 /MIN, RR 18 /MIN, TEMP 99.6 F, OXYGEN SAT % 96, SAFE IN ENV? (Y/N) Y, REVIEWED BY: KG. ASSESSMENTS CERVICAL DISC DISORDER WITH RADICULOPATHY OF CERVICAL REGION - M50.10 (PRIMARY) PROCEDURES PN CERVICAL EPIDURAL PRE PROCEDURE DIAGNOSIS CERVICAL DISC DISORDER WITH RADICULOPATHY POST PROCEDURE DIAGNOSIS CERVICAL DISC DISORDER WITH RADICULOPATHY PROCEDURE CERVICAL EPIDURAL STEROID INJECTION UNDER FLUOROSCOPIC GUIDANCE SURGEON DR. MATA JOHNS HANDBAG PARTS CUTTER NONE ANESTHESIA LOCAL PRE PROCEDURE NOTE THE PATIENT HAS A HISTORY OF CHRONIC CERVICAL PAIN. I EVALUATE THE PATIENT AND REVIEWED THE CHART. I WENT OVER THE RISKS, ALTERNATIVES, AND BENEFITS ASSOCIATED WITH THIS PROCEDURE. THE PATIENT WOULD LIKE TO PROCEED AND GIVE CONSENT TO PERFORMED THE PROCEDURE. THE PATIENT DENIES UNEXPLAINABLE WEIGHT LOSS, FEVER, CHILLS, OR NEW CHANGES IN URINARY OR BOWEL CONTROL DESCRIPTION OF PROCEDURE THE PATIENT WAS BROUGHT TO THE PROCEDURE ROOM AND PLACED IN THE PRONE POSITION. THE CERVICOTHORACIC AREA WAS CLEANED WITH BETADINE SOLUTION AND DRAPED ASEPTICALLY. THE PROCEDURE WAS DONE UNDER STERILE CONDITIONS. I CHECKED LATERALITY AND THE LEVEL WHERE THE PROCEDURE WAS GOING TO BE PERFORMED WITH THE PATIENT AND THE SUPPORTING STAFF AT THE MOMENT OF THE TIME OUT IN THE PROCEDURE ROOM. UNDER FLUOROSCOPIC GUIDANCE, THE TARGET WAS SELECTED AT THE INTERLAMINAR LEVEL OF C7-T1. LIDOCAINE WAS USED TO NUMB THE SKIN AND THE SUBCUTANEOUS TISSUE BELOW IT. EPIDURAL TUOHY NEEDLE 17-GAUGE WAS ADVANCED UNDER FLUOROSCOPIC GUIDANCE AND FOLLOWING PATIENT FEEDBACK UNTIL THE EPIDURAL SPACE WAS REACHED 6 CM DEEP INTO THE SKIN BY THE LOSS OF RESISTANCE TECHNIQUE. ISOVUE M DYE 30%, 0.25 ML, WAS INJECTED SHOWING ADEQUATE SPREAD OF THE DYE. THEN, A SOLUTION OF 3 ML OF NORMAL SALINE WITH DEPO-MEDROL 60 MG WAS INJECTED SLOWLY FOLLOWING PATIENT FEEDBACK. THERE WAS NO EVIDENCE OF BLOOD, PARESTHESIA OR CEREBROSPINAL FLUID DURING THE PROCEDURE. THE PATIENT WAS SENT TO THE RECOVERY ROOM. THE PATIENT WAS MOVING THE EXTREMITIES AND DOING WELL. THERE WAS NO COMPLICATION DURING THE PROCEDURE. FLUOROSCOPY TIME WAS 10 SECONDS POST PROCEDURE NOTE THE PATIENT WILL BE SEEN IN A FOLLOW UP IN THE NEXT FEW WEEKS. INSTRUCTIONS WERE GIVEN, QUESTIONS WERE ANSWERED, AND THE PATIENT EXPRESSED UNDERSTANDING AND AGREES WITH THE PLAN. I, SHLOMO MEDELLIN, DOCUMENTED THE ABOVE INFORMATION ACTING A SCRIBE FOR DR. JOHNS. I HAVE REVIEWED THE ABOVE DOCUMENT, WRITTEN BY SHLOMO MARTE AND I VERIFY THAT IT IS ACCURATE. DIAGNOSTIC IMAGING [facility] FLUORO GUIDE SPINE INJECTION (PAIN)[id number] PROCEDURE CODES 6045F RADXPS IN END [id number] PXD [id number] CERVICAL/THORACIC W/ IMAGING DISPOSITION & COMMUNICATION FOLLOW UP 3 WEEKS ELECTRONICALLY SIGNED BY MATA JOHNS MD, MD ON 09/09/2018 AT 07:34 PM EDT DISCLAIMER : THIS IS A VISIT SUMMARY EXTRACTED FROM THE [employer] CHART. IT IS NOT A COPY OF THE [employer] PROGRESS NOTE. RIZWANA
== END ==
LOC: M PAIN 08:30
PROVIDERS: ATTEND Anesthesiology
DX: M50.10 Cervical disc disorder with radiculopathy, unspecified cervical region (principal); K21.9 Gastro-esophageal reflux disease without esophagitis; M81.0 Age-related osteoporosis without current pathological fracture; G89.29 Other chronic pain; K59.00 Constipation, unspecified; G56.01 Carpal tunnel syndrome, right upper limb; F17.210 Nicotine dependence, cigarettes, uncomplicated
CPT/HCPCS: 62321; J1030; Q9967

== ENCOUNTER → 2018-09-26 | Outpatient (CLI) | payer MEDICARE, MEDICAID ==
[~2018-09-26] MED LIST changes: -ISOVUE-M 300 61% 15ML VIAL (Q9967) As Ordered ONE; -LIDOCAINE 1% SDV INJ 30 ML VIAL As Ordered ONE; -diazePAM 5 MG TAB As Ordered ONE; -methylPREDNISolone SUSP 40 MG/ML (DEPO-medrol) VIAL (J1030) As Ordered ONE
--- NOTE | 2018-10-11 01:39 | ECWPNPC ---
PATIENT NAME: MARY PEÑA : 1950 GENDER: FEMALE VISIT DATE: 09/26/2018 DISCHARGE DATE: 09/26/18 1027 VISIT LOCKED DATE TIME: PHYSICIAN: BARRY DUMONT RESOURCE: BARRY DUMONT REASON FOR APPOINTMENT 1. POST C5/6 CHANTAL HISTORY OF PRESENT ILLNESS HISTORY OF PRESENT ILLNESS: HERE FOR POST PROCEDURE F/U.HAD CHANTAL C5/C6 ON 08/29/18.REPORTING 1 WEEK IMPROVEMENT IN RIGHT NECK AND RIGHT ARM SYMPTOMS.RATING PAIN VAS 6/10.PAIN IS CONTINUOUS AND WAKES HER FROM SLEEP.HAVING RIGHT FINGERS AND HAND PAIN AND PARATHESISA THAT WASNT HELPED EVEN FOR A SHORT TIME POST CHANTAL.FOLLOWS WITH NEUROLOGY AND WAS TOLD SHE HAD TRIGGER FINGER AND CTS.SHE WILL MAKE APT. TO SEE THEM.FOUND INCREASE IN GABAPENTIN MADE AT OUR LAST VISIT SOMEWHAT HELPFUL.TRAMADOL IS SOMEWHAT HELPFUL.HAVING EXTREME PAIN WITH USE OF RIGHT ARM. PAIN THE PATIENT DESCRIBES THE PAIN... FALL RISK SCREENING: SCREENING :NO FALLS REPORTED IN THE LAST YEAR CURRENT MEDICATIONS TAKING CYMBALTA 60 MG CAPSULE DELAYED RELEASE PARTICLES 1 CAPSULE ORALLY ONCE A DAY TAKING METOPROLOL SUCCINATE ER 25 MG TABLET EXTENDED RELEASE 24 HOUR 1/2 TABLET ORALLY BID TAKING RALOXIFENE HCL 60 MG TABLET 1 TABLET ORALLY ONCE A DAY TAKING ASPIR-81 81 MG TABLET DELAYED RELEASE 1 TABLET ORALLY ONCE A DAY TAKING VITAMIN D 1000 UNIT TABLET 1 TABLET ORALLY BID TAKING OMEPRAZOLE 40 MG CAPSULE DELAYED RELEASE 1 CAPSULE ORALLY BID TAKING MIRALAX - POWDER 1 PACKET MIXED WITH 8 OUNCES OF FLUID ORALLY BID TAKING STIOLTO RESPIMAT 2.5-2.5 MCG/ACT AEROSOL SOLUTION 2 PUFFS INHALATION ONCE A DAY TAKING LINZESS 290 MCG CAPSULE 1 CAPSULE ORALLY ONCE A DAY TAKING TRAMADOL HCL 50 MG TABLET 1 TAB ORALLY Q6H PRN MDD4 TAKING COLACE 100 MG CAPSULE 1 CAPSULE NEEDED ORALLY BID TAKING GABAPENTIN 100 MG CAPSULE 1 CAPSULE ORALLY 1 IN AM,1 MIDDAY,2 AT HS TAKING TRAZODONE HCL 100 MG TABLET 1 TABLET AT BEDTIME ORALLY ONCE A DAY NOT-TAKING RAMIPRIL 2.5 MG CAPSULE 1 CAPSULE ORALLY ONCE A DAY NOT-TAKING MORPHINE SULFATE ER 15 MG TABLET EXTENDED RELEASE 1 TABLET ORALLY DAILY NOT-TAKING MELOXICAM 7.5 MG TABLET 1 TABLET ORALLY BID NOT-TAKING TRIAMCINOLONE ACETONIDE 0.025 % CREAM 1 APPLICATION TO AFFECTED AREA EXTERNALLY TWICE A DAY NOT-TAKING CLOTRIMAZOLE 1 % CREAM 1 APPLICATION TO AFFECTED AREA EXTERNALLY TWICE A DAY NOT-TAKING ERGOCALCIFEROL 26804 UNIT CAPSULE 1 CAPSULE ORALLY WEEKLY NOT-TAKING CARAFATE 1 GM TABLET 1 TABLET ON AN EMPTY STOMACH ORALLY TWICE A DAY NOT-TAKING COLACE 100 MG CAPSULE 1 CAPSULE NEEDED ORALLY ONCE A DAY MEDICATION LIST REVIEWED AND RECONCILED WITH THE PATIENT PAST MEDICAL HISTORY GERD OSTEOPOROSIS HYPERLIPID CHRONIC PAIN 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 SURGICAL HISTORY CSECTION 1974 HYSTERECTOMY 1974 CHOLECYSTECTOMY 2007 LASER DISKECTOMYVAT L5-S1 2007 FAMILY HISTORY FATHER: 68 YRS, DIAGNOSED WITH HYPERTENSION, HEART DISEASE MOTHER: , OTHER 1 BROTHER(S) , 5 SISTER(S) . 2 SON(S) . 1 SISTER IS - CAR ACCIDENT ONE BROTHER IS - DIABETES AND HEART ISSUES ONE SON FROM CAR ACCIDENT\NMOTHER--COPD. SOCIAL HISTORY GENERAL: TOBACCO USE ARE YOU A:CURRENT SMOKER ARE YOU INTERESTED IN QUITTING?NOT READY TO QUIT STATES SHE HAS CUT DOWN BUT THIS IS THE ONLY ENJOYMENT SHE GETS OUT OF LIFE. COUNSELED THE PATIENT ON SMOKING EFFECTS, EDUCATION [id number]/17/2019 HOW MANY CIGARETTES A DAY DO YOU SMOKE?6-10 HOW SOON AFTER YOU WAKE UP DO YOU SMOKE YOUR FIRST CIGARETTE?31-60 MIN HOW OFTEN DO YOU SMOKE CIGARETTES?EVERY DAY PATIENT COUNSELED ON THE DANGERS OF TOBACCO USE AND URGED TO QUIT:07/13/2018 SMOKING CESSATION INFORMATION GIVEN08/29/2018 PAIN CLINIC PFS, CLERGY, PUBLIC HEALTH REFERRALS PFS REFERRAL NEEDED?NO CLERGY REFERRAL NEEDED?NO PUBLIC HEALTH REFERRAL NEEDED?NO WAS THE PROVIDER NOTIFIED OF ANY PERTINENT INFO?YES N//A HAS THE PATIENT BEEN EDUCATED REGARDING HIS/HER PLAN OF CARE?YES HAS THE PATIENT BEEN EDUCATED REGARDING PAIN, THE RISK FOR PAIN, THE IMPORTANCE OF EFFECTIVE PAIN MANAGEMENT, AND THE PAIN ASSESSMENT PROCESS?YES LATEX QUESTIONNAIRE LATEX ALLERGY : HAVE YOU EVER DEVELOPED ANY TYPE OF REACTION AFTER HANDLING LATEX PRODUCTS SUCH RUBBER GLOVES, CONDOMS, DIAPHRAGMS, BALLOONS, SOCKS, OR UNDERWEAR?NO LATEX ALLERGY : HAVE YOU EVER DEVELOPED ANY TYPE OF REACTION DURING OR AFTER DENTAL APPOINTMENT, VAGINAL/RECTAL EXAMINATION, SURGICAL PROCEDURE, OR ANY OTHER EXPOSURE?NO LATEX RISK : HAVE YOU EVER HAD ANY DIFFICULTY BREATHING OR HIVES AFTER EATING OR HANDLING ANY FRUITS, OR VEGETABLES; SUCH KIWI, BANANAS, STONE FRUITS, OR CHESTNUTSNO LATEX RISK : DO YOU HAVE A PREVIOUS PERSONAL HISTORY OF MORE THAN NINE SURGERIES, SPINA BIFIDA, OR REPEATED CATHERIZATIONS? NO LATEX RISK : ARE YOU FREQUENTLY EXPOSED TO LATEX PRODUCTS IN YOUR OCCUPATION?NO DATE ASKED : 07/13/2018 CAFFEINE CAFFEINE USE?YES HOW OFTEN AND HOW MUCH? 3-4 POTS COFFEE/DAY ADVANCE DIRECTIVE ADVANCE DIRECTIVE DISCUSSED WITH PATIENT:YES PT NOT READY TO CHANGE HCP AT THIS TIME. CONGREGATION [id number] CHRISTIAN NO CHURCH BELIEFS THAT WOULD IMPACT HEALTH CARE. LANGUAGE LANGUAGES SPOKEN:IRISH DOMESTIC VIOLENCE DO YOU FEEL SAFE IN YOUR ENVIRONMENT?YES NEW PATIENT PAIN DIARY FROM 0-10, WHAT LEVEL IS YOUR PAIN TODAY?5 ALCOHOL SCREENING DID YOU HAVE A DRINK CONTAINING ALCOHOL IN THE PAST YEAR?NO POINTS0 INTERPRETATIONNEGATIVE RECREATIONAL DRUG USE DRUG USE?NO LEARNING BARRIERS / SPECIAL NEEDS BARRIERS TO LEARNING?NO HEARING IMPAIRED?NO VISION IMPAIRED?YES :CORRECTIVE LENSES COGNITIVELY IMPAIRED?NO READINESS TO LEARN?YES LEARNING PREFERENCES?YES :DEMONSTRATION/VERBAL INSTRUCTION LEARNING CAPABILITIES PRESENT?YES EMOTIONAL BARRIERS?NO SPECIAL DEVICES?YES :CANE USES IT OCCASSIONALLY AUDIO VISUAL AIDE NEEDED?NO HOSPITALIZATION/MAJOR DIAGNOSTIC PROCEDURE CSECTION AND HYSTERECTOMY REVIEW OF SYSTEMS REVIEWED BY: PROVIDER: BARRY AMOR . CONSTITUTIONAL: ANY CHANGE IN YOUR MEDICAL CONDITION? NO . CHILLS NO . FEVER NO . INFECTION: DO YOU HAVE NEW INFECTIONS? NO . DO YOU HAVE HISTORY OF MRSA? NO . MUSCULOSKELETAL: ANY NEW PATTERNS OF PAIN OR NUMBNESS? YES, PAIN IS WORSE TO RIGHT ARM AND HAND . GASTROENTEROLOGY: ANY NEW CHANGE IN BOWEL CONTROL? NO . GENITOURINARY: ANY NEW CHANGE IN BLADDER CONTROL? YES, PT C/O FREQUENCY . IS THERE A CHANCE YOU COULD BE ? NO . HEMATOLOGY/LYMPH: DO YOU TAKE ANY BLOOD THINNERS? (FOR EXAMPLE- COUMADIN, PLAVIX, AGGRENOX, PLATEL, PRADAXA, OR XARELTO) NO . WHEN WAS YOUR LAST DOSE? DATE: TIME: . NEUROLOGY: HAVE YOU FALLEN IN THE PAST 12 MONTHS? NO . ANY NEW EXTREMITY NUMBNESS OR WEAKNESS? NO . CARDIOLOGY: DO YOU HAVE A PACEMAKER OR DEFIBRILLATOR? NO . RESPIRATORY: HAVE YOU BEEN SICK IN THE PAST WEEK? NO . FEVER NO . FLU LIKE SYMPTOMS? NO . COUGH NO . INTEGUMENTARY: DO YOU HAVE ANY RASHES OR OPEN SORES? NO . ALLERGIC/IMMUNO: ARE YOU ALLERGIC TO IV DYE? NO . ANY NEW ALLERGIES? NO . PSYCHIATRIC: DO YOU HAVE THOUGHTS OF HURTING YOURSELF OR SOMEONE ELSE? NO . ARE YOU ABUSED, NEGLECTED, OR IN AN UNSAFE ENVIRONMENT? NO . ENDOCRINOLOGY: ARE YOU DIABETIC? NO . OTHER: DO YOU NEED ANY PRESCRIPTIONS? YES, TRAMADOL, BUT PT DOESN'T FEEL ITS WORKING VERY WELL . IF YES, PLEASE LIST: ____ . ANY NEW PROBLEMS WITH YOUR MEDICATIONS? NO . WHEN DID YOU LAST EAT? ____ . WHEN DID YOU LAST DRINK? ____ . WHAT DID YOU LAST DRINK? ____ . NAME OF PERSON DRIVING YOU HOME? ____ . DO YOU HAVE ANY OTHER QUESTIONS OR CONCERNS YES, WALKING IN SLEEP . VITAL SIGNS WT 91.4 LBS, HT 56 IN, BMI 20.49 INDEX, BP 111/59 MM HG, HR 55 /MIN, RR 16 /MIN, TEMP 98.4 F, OXYGEN SAT % 100%, NA INITIALS SC 09:41, REVIEWED BY: EM. EXAMINATION GENERAL EXAMINATION: LUNGS: LUNG SOUNDS ARE CLEAR . HEART: HEART RATE REGULAR . MUSCULOSKELETAL:*, MUSCLE STRENGTH TESTING 5/5 BILATERAL UPPER EXTREMITIES. . CERVICAL+ FOR PAIN WITH PALPATION OF CERVICAL SPINE. + FOR PAIN WITH PALPATION OF CERVICAL PARASPINALS.TRIGGER POINTS ELICITED OVER RIGHT SCAPULAR,SCALENE,RHOMBOID AND TRAPEZIUS.ROJM RIGHT ARM AGGREVATES PAIN.. DIAGNOSTIC TESTS REVIEWED CERVICAL MRI-05/16/18 [facility]CS UPPER EXTREMITIES-06/21/18. ASSESSMENTS MYALGIA OF MUSCLE OF NECK - M79.18 (PRIMARY) TREATMENT MYALGIA OF MUSCLE OF NECK REFILL TRAMADOL HCL TABLET, 50 MG, 1 TAB, ORALLY, Q6H PRN MDD4, 30 DAYS, 120, REFILLS 2 INCREASE GABAPENTIN CAPSULE, 100 MG, 1 TO 2 CAP DIRECTED, ORALLY, 2 IN AM,1 MIDDAY,2 AT HS MDD5, 30 DAY(S), 150, REFILLS 2 NOTES: TPI RIGHT NECK. PREVENTIVE MEDICINE PAIN CLINIC TEACHING: PROCEDURE TEACHING PT GIVEN WRITTEN AND VERBAL PRE-PROCEDURE INSTRUCTIONS. PT VERBALIZES UNDERSTANDING OF ALL INSTRUCTIONS, STATING SHE HAS HAD THIS PROCEDURE BEFORE. VIOLA WILSON 09/26/2018 10:30:28 AM > . PROCEDURE CODES FA211 ESTABILISHED PATIENT [facility] CHARGE DISPOSITION & COMMUNICATION FOLLOW UP POST (REASON: TPI RIGHT NECK) ELECTRONICALLY SIGNED BY ZULEYMA SWANSON ON 10/10/2018 AT 03:58 PM EDT DISCLAIMER : THIS IS A VISIT SUMMARY EXTRACTED FROM THE [employer] CHART. IT IS NOT A COPY OF THE [employer] PROGRESS NOTE. RIZWANA
== END ==
LOC: M PAIN 09:30
PROVIDERS: ATTEND Nurse Practitioner Family
DX: M79.18 Myalgia, other site (principal); K21.9 Gastro-esophageal reflux disease without esophagitis; M81.0 Age-related osteoporosis without current pathological fracture; E78.5 Hyperlipidemia, unspecified; G89.29 Other chronic pain; K59.00 Constipation, unspecified; G56.01 Carpal tunnel syndrome, right upper limb; Z90.49 Acquired absence of other specified parts of digestive tract; G56.80 Other specified mononeuropathies of unspecified upper limb; F17.210 Nicotine dependence, cigarettes, uncomplicated; Z79.82 Long term (current) use of aspirin; Z79.891 Long term (current) use of opiate analgesic; Z79.899 Other long term (current) drug therapy

== ENCOUNTER → 2018-11-06 | Outpatient (CLI) | payer MEDICARE, MEDICAID ==
[~2018-11-06] MED LIST changes: +BUPIVACAINE HCL 0.25% 10 ML VIAL As Ordered ONE; +BUPIVACAINE HCL 0.25% 30 ML VIAL As Ordered ONE; -OMEP40CA2 PO; +OMEP40CA97 PO; -TRAZ-163 PO; +TRAZ-257 PO; +TRIAMCINOLONE ACETONIDE SUSP 40 MG/ML VIAL (J3301) As Ordered ONE
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
== END ==
LOC: M PAIN 13:15
PROVIDERS: ATTEND Anesthesiology
DX: G89.29 Other chronic pain (principal); M79.18 Myalgia, other site; M25.511 Pain in right shoulder; M54.2 Cervicalgia; F17.210 Nicotine dependence, cigarettes, uncomplicated; Z79.82 Long term (current) use of aspirin; Z79.891 Long term (current) use of opiate analgesic; Z79.899 Other long term (current) drug therapy
CPT/HCPCS: 20552; J3301

== ENCOUNTER → 2018-11-26 | Outpatient (REF) | payer OTHER, MEDICAID ==
[~2018-11-26] MED LIST changes: -BUPIVACAINE HCL 0.25% 10 ML VIAL As Ordered ONE; -BUPIVACAINE HCL 0.25% 30 ML VIAL As Ordered ONE; +OMEP40CA2 PO; -OMEP40CA97 PO; +TRAZ-163 PO; -TRAZ-257 PO; -TRIAMCINOLONE ACETONIDE SUSP 40 MG/ML VIAL (J3301) As Ordered ONE
[2018-11-26 14:07] LABS: RHEUMATOID FACTOR QUANT 30.4 IU/ML (<15.0); TOTAL PROTEIN 6.2 GM/DL (6.4-8.2)
[2018-11-26 14:15] LABS: VITAMIN B12 LEVEL 658 PG/ML (247-911)
[2018-11-26 14:16] LABS: FOLATE 4.5 NG/ML (>5.4)
[2018-11-27 08:51] LABS: DRVV SCREEN 46.7 SEC
[2018-11-27 08:56] LABS: PTT LUPUS TYPE ANTICOAG SCREEN 1.2 (0-1.2)
[2018-11-27 09:07] LABS: DRVV CONFIRM 35.8 SEC; LUPUS CONFIRM RATIO 0.9
[2018-11-27 09:11] LABS: NORMALIZED RATIO 1.33 (0.00-1.20)
[2018-11-27 11:05] LABS: ALBUMIN 3.75 GM/DL (3.29-5.55); ALBUMIN % 60.5 % (55.8-66.1); ALPHA-1-GLOBULINS 0.32 GM/DL (0.17-0.41)
[2018-11-27 11:06] LABS: ALPHA-1-GLOBULIN % 5.1 % (2.9-4.9); ALPHA-2-GLOBULINS 0.61 GM/DL (0.42-0.99); ALPHA-2-GLOBULINS % 9.9 % (7.1-11.8); BETA-1-GLOBULINS 0.34 GM/DL (0.28-0.60); BETA-1-GLOBULINS % 5.5 % (4.7-7.2); BETA-2-GLOBULINS 0.34 GM/DL (0.19-0.55); BETA-2-GLOBULINS % 5.5 % (3.2-6.5); GAMMA GLOBULIN % 13.5 % (11.1-18.8); GAMMA GLOBULINS 0.84 GM/DL (0.65-1.58)
[2018-11-30 00:06] LABS: HEXAGONAL PHASE PHOSPHOLIPID 6 sec (0-11)
[2018-11-30 14:26] LABS: ANTINUCLEAR ANTIBODIES DIRECT Negative (Negative); VITAMIN B1 LEVEL WHOLE BLOOD 143.7 nmol/L (66.5-200.0); VITAMIN B6,PYRIDOXAL PHOSPHATE 7.4 ug/L (2.0-32.8); VITAMIN E(ALPHA TOCOPHEROL) 7.3 mg/L (9.0-29.0); VITAMIN E(GAMMA TOCOPHEROL) 0.7 mg/L (0.5-4.9)
== END ==
LOC: M LABDRAW1 09:29
PROVIDERS: ATTEND Psychiatry & Neurology Neurology
DX: R51 Headache (principal)

== ENCOUNTER → 2018-11-27 | Outpatient (CLI) | payer MEDICARE, MEDICAID ==
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
== END ==
LOC: M PAIN 09:30
PROVIDERS: ATTEND Nurse Practitioner Family
DX: M79.18 Myalgia, other site (principal); M12.9 Arthropathy, unspecified; K21.9 Gastro-esophageal reflux disease without esophagitis; M81.0 Age-related osteoporosis without current pathological fracture; E78.5 Hyperlipidemia, unspecified; F17.210 Nicotine dependence, cigarettes, uncomplicated; Z79.82 Long term (current) use of aspirin; Z79.891 Long term (current) use of opiate analgesic; Z79.899 Other long term (current) drug therapy

== ENCOUNTER → 2019-01-22 | Outpatient (CLI) | payer MEDICARE, MEDICAID ==
[~2019-01-22] MED LIST changes: -OMEP40CA2 PO; +OMEP40CA97 PO
--- NOTE | 2019-02-06 04:24 | ECWPNPC ---
PATIENT NAME: MARY PEÑA : 1950 GENDER: FEMALE VISIT DATE: 01/22/2019 DISCHARGE DATE: 01/22/19950 VISIT LOCKED DATE TIME: PHYSICIAN: BARRY DUMONT RESOURCE: BARRY DUMONT REASON FOR APPOINTMENT 1. 6-8 WKS PER BARRY HISTORY OF PRESENT ILLNESS HISTORY OF PRESENT ILLNESS: HERE FOR F/U OF CHRONIC GENERALIZE JOINT PAIN.CHIEF AREA OF PAIN IS BILATERAL ARM NUMBNESS /SHOOTING PAIN OVER THE PAST 6 MONTHS.PATIENT FEELS HAS BECOME AGGREVATED SINCE NCS SEVERAL MONTHS AGO.FOLLOWING WITH DR [facility]OPPER[facility] AND STATES HE DIAGNOSED HER WITH LUPUS RECENTLY.HAS RHEUMATOLOGY APPOINTMENT PENDING. PAIN THE PATIENT DESCRIBES THE PAIN... FALL RISK SCREENING: SCREENING :NO FALLS REPORTED IN THE LAST YEAR CURRENT MEDICATIONS TAKING CYMBALTA 60 MG CAPSULE DELAYED RELEASE PARTICLES 1 CAPSULE ORALLY ONCE A DAY TAKING METOPROLOL SUCCINATE ER 25 MG TABLET EXTENDED RELEASE 24 HOUR 1/2 TABLET ORALLY BID TAKING RALOXIFENE HCL 60 MG TABLET 1 TABLET ORALLY ONCE A DAY TAKING ASPIR-81 81 MG TABLET DELAYED RELEASE 1 TABLET ORALLY ONCE A DAY TAKING VITAMIN D 1000 UNIT TABLET 1 TABLET ORALLY BID TAKING OMEPRAZOLE 40 MG CAPSULE DELAYED RELEASE 1 CAPSULE ORALLY BID TAKING MIRALAX - POWDER 1 PACKET MIXED WITH 8 OUNCES OF FLUID ORALLY BID TAKING STIOLTO RESPIMAT 2.5-2.5 MCG/ACT AEROSOL SOLUTION 2 PUFFS INHALATION ONCE A DAY TAKING COLACE 100 MG CAPSULE 1 CAPSULE NEEDED ORALLY BID TAKING TRAMADOL HCL 50 MG TABLET 1 TAB ORALLY Q6H PRN MDD4 TAKING GABAPENTIN 100 MG CAPSULE 1 TO 2 CAP DIRECTED ORALLY 2 IN AM,1 MIDDAY,2 AT HS MDD5 TAKING TRAZODONE HCL 100 MG TABLET 1 TABLET AT BEDTIME ORALLY ONCE A DAY TAKING LINZESS 290 MCG CAPSULE 1 CAPSULE ORALLY ONCE A DAY TAKING MECLIZINE HCL 25 MG TABLET 1 TABLET ORALLY BID NOT-TAKING RAMIPRIL 2.5 MG CAPSULE 1 CAPSULE ORALLY ONCE A DAY NOT-TAKING MORPHINE SULFATE ER 15 MG TABLET EXTENDED RELEASE 1 TABLET ORALLY DAILY NOT-TAKING MELOXICAM 7.5 MG TABLET 1 TABLET ORALLY BID NOT-TAKING TRIAMCINOLONE ACETONIDE 0.025 % CREAM 1 APPLICATION TO AFFECTED AREA EXTERNALLY TWICE A DAY NOT-TAKING CLOTRIMAZOLE 1 % CREAM 1 APPLICATION TO AFFECTED AREA EXTERNALLY TWICE A DAY NOT-TAKING ERGOCALCIFEROL 59273 UNIT CAPSULE 1 CAPSULE ORALLY WEEKLY NOT-TAKING CARAFATE 1 GM TABLET 1 TABLET ON AN EMPTY STOMACH ORALLY TWICE A DAY NOT-TAKING COLACE 100 MG CAPSULE 1 CAPSULE NEEDED ORALLY ONCE A DAY MEDICATION LIST REVIEWED AND RECONCILED WITH THE PATIENT PAST MEDICAL HISTORY GERD OSTEOPOROSIS HYPERLIPID CHRONIC PAIN 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 SURGICAL HISTORY CSECTION 1974 HYSTERECTOMY 1975 CHOLECYSTECTOMY 2007 LASER DISKECTOMYVAT L5-S1 2007 FAMILY HISTORY FATHER: 68 YRS, DIAGNOSED WITH HYPERTENSION, UNSPECIFIED HEART DISEASE MOTHER: , OTHER SPECIFIED CONDITIONS INFLUENCING HEALTH STATUS 1 BROTHER(S) , 5 SISTER(S) . 2 SON(S) . 1 SISTER IS - CAR ACCIDENT ONE BROTHER IS - DIABETES AND HEART ISSUES ONE SON FROM CAR ACCIDENT\NMOTHER--COPD. SOCIAL HISTORY GENERAL: TOBACCO USE ARE YOU A:CURRENT SMOKER ARE YOU INTERESTED IN QUITTING?NOT READY TO QUIT STATES SHE HAS CUT DOWN BUT THIS IS THE ONLY ENJOYMENT SHE GETS OUT OF LIFE. COUNSELED THE PATIENT ON SMOKING EFFECTS, EDUCATION [id number]/12/2019 HOW MANY CIGARETTES A DAY DO YOU SMOKE?6-10 HOW SOON AFTER YOU WAKE UP DO YOU SMOKE YOUR FIRST CIGARETTE?31-60 MIN HOW OFTEN DO YOU SMOKE CIGARETTES?EVERY DAY PATIENT COUNSELED ON THE DANGERS OF TOBACCO USE AND URGED TO QUIT:01/22/2019 SMOKING CESSATION INFORMATION GIVEN11/06/2018 PAIN CLINIC PFS, CLERGY, PUBLIC HEALTH REFERRALS PFS REFERRAL NEEDED?NO CLERGY REFERRAL NEEDED?NO PUBLIC HEALTH REFERRAL NEEDED?NO WAS THE PROVIDER NOTIFIED OF ANY PERTINENT INFO?YES N//A HAS THE PATIENT BEEN EDUCATED REGARDING HIS/HER PLAN OF CARE?YES HAS THE PATIENT BEEN EDUCATED REGARDING PAIN, THE RISK FOR PAIN, THE IMPORTANCE OF EFFECTIVE PAIN MANAGEMENT, AND THE PAIN ASSESSMENT PROCESS?YES LATEX QUESTIONNAIRE LATEX ALLERGY : HAVE YOU EVER DEVELOPED ANY TYPE OF REACTION AFTER HANDLING LATEX PRODUCTS SUCH RUBBER GLOVES, CONDOMS, DIAPHRAGMS, BALLOONS, SOCKS, OR UNDERWEAR?NO LATEX ALLERGY : HAVE YOU EVER DEVELOPED ANY TYPE OF REACTION DURING OR AFTER DENTAL APPOINTMENT, VAGINAL/RECTAL EXAMINATION, SURGICAL PROCEDURE, OR ANY OTHER EXPOSURE?NO LATEX RISK : HAVE YOU EVER HAD ANY DIFFICULTY BREATHING OR HIVES AFTER EATING OR HANDLING ANY FRUITS, OR VEGETABLES; SUCH KIWI, BANANAS, STONE FRUITS, OR CHESTNUTSNO LATEX RISK : DO YOU HAVE A PREVIOUS PERSONAL HISTORY OF MORE THAN NINE SURGERIES, SPINA BIFIDA, OR REPEATED CATHERIZATIONS? NO LATEX RISK : ARE YOU FREQUENTLY EXPOSED TO LATEX PRODUCTS IN YOUR OCCUPATION?NO DATE ASKED : 07/13/2018 CAFFEINE CAFFEINE USE?YES HOW OFTEN AND HOW MUCH? 3-4 POTS COFFEE/DAY ADVANCE DIRECTIVE ADVANCE DIRECTIVE DISCUSSED WITH PATIENT:YES PATIENT STATES NO HCP AT THIS TIME. INFORMATION GIVEN, PATIENT DECLINED ASSISTANCE IN FILLING IT OUT AT THIS TIME. SABIANIST [id number] ANABAPTISM NO GNOSTICIST BELIEFS THAT WOULD IMPACT HEALTH CARE. LANGUAGE LANGUAGES SPOKEN:MAORI DOMESTIC VIOLENCE DO YOU FEEL SAFE IN YOUR ENVIRONMENT?YES NEW PATIENT PAIN DIARY FROM 0-10, WHAT LEVEL IS YOUR PAIN TODAY?5 ALCOHOL SCREENING DID YOU HAVE A DRINK CONTAINING ALCOHOL IN THE PAST YEAR?NO POINTS0 INTERPRETATIONNEGATIVE RECREATIONAL DRUG USE DRUG USE?NO LEARNING BARRIERS / SPECIAL NEEDS BARRIERS TO LEARNING?NO HEARING IMPAIRED?NO VISION IMPAIRED?YES COGNITIVELY IMPAIRED?NO :CORRECTIVE LENSES READINESS TO LEARN?YES LEARNING PREFERENCES?YES :DEMONSTRATION/VERBAL INSTRUCTION LEARNING CAPABILITIES PRESENT?YES EMOTIONAL BARRIERS?NO SPECIAL DEVICES?YES :CANE USES IT OCCASSIONALLY FRUIT TESTER NEEDED?NO REVIEWED WITH PATIENT 01/22/19 3582 JS. HOSPITALIZATION/MAJOR DIAGNOSTIC PROCEDURE CSECTION AND HYSTERECTOMY REVIEW OF SYSTEMS REVIEWED BY: PROVIDER: BARRY AMOR . CONSTITUTIONAL: ANY CHANGE IN YOUR MEDICAL CONDITION? YES, DIAGNOSED WITH LUPUS . CHILLS NO . FEVER NO . INFECTION: DO YOU HAVE NEW INFECTIONS? YES, UTI IN DECEMBER . DO YOU HAVE HISTORY OF MRSA? NO . MUSCULOSKELETAL: ANY NEW PATTERNS OF PAIN OR NUMBNESS? YES, STATES PAIN WORSENING . GASTROENTEROLOGY: ANY NEW CHANGE IN BOWEL CONTROL? YES, STATES SHE ALTERNATES BETWEEN CONSTIPATION AND DIARRHEA, NOTHING IN BETWEEN . GENITOURINARY: ANY NEW CHANGE IN BLADDER CONTROL? YES, FREQUENCY AND URGENCY . IS THERE A CHANCE YOU COULD BE ? NO . HEMATOLOGY/LYMPH: DO YOU TAKE ANY BLOOD THINNERS? (FOR EXAMPLE- COUMADIN, PLAVIX, AGGRENOX, PLATEL, PRADAXA, OR XARELTO) NO . WHEN WAS YOUR LAST DOSE? DATE: TIME: . NEUROLOGY: HAVE YOU FALLEN IN THE PAST 12 MONTHS? YES, STATES FALL RELATED TO DIZZINESS GOING UP STAIRS. STATES NO ED VISIT, NO IMAGING . ANY NEW EXTREMITY NUMBNESS OR WEAKNESS? YES, STATES INCREASED WEAKNESS TO BILATERAL ARMS, RIGHT > LEFT . CARDIOLOGY: DO YOU HAVE A PACEMAKER OR DEFIBRILLATOR? NO . RESPIRATORY: HAVE YOU BEEN SICK IN THE PAST WEEK? NO . FEVER NO . FLU LIKE SYMPTOMS? NO . COUGH NO . INTEGUMENTARY: DO YOU HAVE ANY RASHES OR OPEN SORES? NO . ALLERGIC/IMMUNO: ARE YOU ALLERGIC TO IV DYE? NO . ANY NEW ALLERGIES? NO . PSYCHIATRIC: DO YOU HAVE THOUGHTS OF HURTING YOURSELF OR SOMEONE ELSE? NO . ARE YOU ABUSED, NEGLECTED, OR IN AN UNSAFE ENVIRONMENT? NO . ENDOCRINOLOGY: ARE YOU DIABETIC? NO . OTHER: DO YOU NEED ANY PRESCRIPTIONS? YES . IF YES, PLEASE LIST: ____TRAMADOL AND TRAZODONE . ANY NEW PROBLEMS WITH YOUR MEDICATIONS? NO . WHEN DID YOU LAST EAT? ____ . WHEN DID YOU LAST DRINK? ____ . WHAT DID YOU LAST DRINK? ____ . NAME OF PERSON DRIVING YOU HOME? ____ . DO YOU HAVE ANY OTHER QUESTIONS OR CONCERNS NO . VITAL SIGNS WT 98.4 LBS, HT 56 IN, BMI 22.06 INDEX, BP 123/58 MM HG, HR 66 /MIN, RR 16 /MIN, TEMP 97.2 F, OXYGEN SAT % 96%, SAFE IN ENV? (Y/N) YES, NA INITIALS AW 0914, REVIEWED BY: KENYON. EXAMINATION GENERAL EXAMINATION: GENERALAWAKE,ALERT ,PLEAASANT . PSYCHAFFECT NORMAL . LUNGS:LUNG STEWARD ARE CLEAR TO AUSCULTATION BILATERALLY. GOOD MOVEMENT OF AIR . HEART:S1, S2 IN A REGULAR RATE AND RHYTHM. NO SIGNIFICANT MURMURS, RUBS OR GALLOPS NOTED . 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 BRINGS IN MEDICATIONS WHICH IS APPROPRIATE FOR WHAT WAS DISPENSED. RECENT URINE TOXICOLOGY REVIEWED. NO UNAUTHORIZED MEDICATIONS. NO ILLICIT SUBSTANCES AND PRESCRIBED MEDICATIONS WERE PRESENT. , RISKS OF NARCOTIC/OPIOD MEDICATIONS INCLUDES BUT IS NOT LIMITED TO RISK OF DEPENDANCE/DEVELOPMENT OF ADDICTION, MOOD DISTURBANCE AND DEPRESSION, OSTEOPOROSIS, HORMONAL AND LABIDAL CHANGES, RESPIRATORY DEPRESSION AND . PATIENT IS ADVISED NOT TO DRIVE OR DRINK ALCOHOL WHILE ON THESE MEDICATIONS. PROCEDURE CODES FA211 ESTABILISHED PATIENT [facility] CHARGE DISPOSITION & COMMUNICATION FOLLOW UP 2 MONTHS ELECTRONICALLY SIGNED BY ZULEYMA SWANSON ON 02/05/2019 AT 01:51 PM EST DISCLAIMER : THIS IS A VISIT SUMMARY EXTRACTED FROM THE [employer] CHART. IT IS NOT A COPY OF THE [employer] PROGRESS NOTE. RIZWANA
== END ==
LOC: M PAIN 09:15
PROVIDERS: ATTEND Nurse Practitioner Family
DX: G56.91 Unspecified mononeuropathy of right upper limb (principal); M12.9 Arthropathy, unspecified

== ENCOUNTER → 2019-03-26 | Outpatient (CLI) | payer MEDICARE, MEDICAID ==
[~2019-03-26] MED LIST changes: -TRAZ-163 PO; +TRAZ-257 PO
--- NOTE | 2019-04-10 03:20 | ECWPNPC ---
PATIENT NAME: MARY PEÑA : 1950 GENDER: FEMALE VISIT DATE: 03/26/2019 DISCHARGE DATE: 03/26/19 1037 VISIT LOCKED DATE TIME: PHYSICIAN: BARRY DUMONT RESOURCE: BARRY DUMONT REASON FOR APPOINTMENT 1. [facility]-BACK/NECK HISTORY OF PRESENT ILLNESS HISTORY OF PRESENT ILLNESS: HERE FOR FOLLOW-UP OF PERSISTENT NECK AND RIGHT ARM PAIN. RATING PAIN LEVEL A 20/10 VAS. REPORTING EPISODES OF FALLING OUT OF BED. WE HAD INCREASED HER GABAPENTIN AT HER LAST VISIT A FEW WEEKS AGO. SHE HAS SINCE DISCONTINUED THIS DUE TO FALLING OUT OF BED AFTER STARTING THE 100 MG DOSE AT BEDTIME. SHE ALSO HAS BEEN TOLD TO TAKE CBD PILL BY DR. SHELL'S OFFICE, OF WHICH SHE ALSO IS TAKING AT NIGHTTIME. STATES SHE FELL OUT OF BED AFTER TAKING THAT MEDICATION WELL. STATES SHE HURTS EVERYWHERE. RECENT DIAGNOSIS OF LUPUS. IS SCHEDULED TO SEE RHEUMATOLOGY IN THE NEAR FUTURE. PAIN THE PATIENT DESCRIBES THE PAIN... FALL RISK SCREENING: SCREENING :NO FALLS REPORTED IN THE LAST YEAR CURRENT MEDICATIONS TAKING CYMBALTA 60 MG CAPSULE DELAYED RELEASE PARTICLES 1 CAPSULE ORALLY ONCE A DAY TAKING METOPROLOL SUCCINATE ER 25 MG TABLET EXTENDED RELEASE 24 HOUR 1/2 TABLET ORALLY BID TAKING RALOXIFENE HCL 60 MG TABLET 1 TABLET ORALLY ONCE A DAY TAKING ASPIR-81 81 MG TABLET DELAYED RELEASE 1 TABLET ORALLY ONCE A DAY TAKING VITAMIN D 1000 UNIT TABLET 1 TABLET ORALLY BID TAKING OMEPRAZOLE 40 MG CAPSULE DELAYED RELEASE 1 CAPSULE ORALLY BID TAKING MIRALAX - POWDER 1 PACKET MIXED WITH 8 OUNCES OF FLUID ORALLY BID TAKING STIOLTO RESPIMAT 2.5-2.5 MCG/ACT AEROSOL SOLUTION 2 PUFFS INHALATION ONCE A DAY TAKING COLACE 100 MG CAPSULE 1 CAPSULE NEEDED ORALLY BID TAKING LINZESS 290 MCG CAPSULE 1 CAPSULE ORALLY ONCE A DAY TAKING MECLIZINE HCL 25 MG TABLET 1 TABLET ORALLY BID TAKING GABAPENTIN 300 MG CAPSULE 1 CAPSULE ORALLY Q8H TID TAKING TRAZODONE HCL 100 MG TABLET 1 TABLET AT BEDTIME ORALLY ONCE A DAY TAKING TRAMADOL HCL 50 MG TABLET 1 TAB ORALLY Q6H PRN MDD4 TAKING MAY USE PILL MEDICAL MARIJUANA NOT-TAKING RAMIPRIL 2.5 MG CAPSULE 1 CAPSULE ORALLY ONCE A DAY NOT-TAKING MORPHINE SULFATE ER 15 MG TABLET EXTENDED RELEASE 1 TABLET ORALLY DAILY NOT-TAKING MELOXICAM 7.5 MG TABLET 1 TABLET ORALLY BID NOT-TAKING TRIAMCINOLONE ACETONIDE 0.025 % CREAM 1 APPLICATION TO AFFECTED AREA EXTERNALLY TWICE A DAY NOT-TAKING CLOTRIMAZOLE 1 % CREAM 1 APPLICATION TO AFFECTED AREA EXTERNALLY TWICE A DAY NOT-TAKING ERGOCALCIFEROL 02319 UNIT CAPSULE 1 CAPSULE ORALLY WEEKLY NOT-TAKING CARAFATE 1 GM TABLET 1 TABLET ON AN EMPTY STOMACH ORALLY TWICE A DAY NOT-TAKING COLACE 100 MG CAPSULE 1 CAPSULE NEEDED ORALLY ONCE A DAY MEDICATION LIST REVIEWED AND RECONCILED WITH THE PATIENT PAST MEDICAL HISTORY GERD OSTEOPOROSIS HYPERLIPID CHRONIC PAIN 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 SURGICAL HISTORY CSECTION 1974 HYSTERECTOMY 1974 CHOLECYSTECTOMY 2007 LASER DISKECTOMYVAT L5-S1 2007 FAMILY HISTORY FATHER: 68 YRS, DIAGNOSED WITH UNSPECIFIED HEART DISEASE, HYPERTENSION MOTHER: , OTHER SPECIFIED CONDITIONS INFLUENCING HEALTH STATUS 1 BROTHER(S) , 5 SISTER(S) . 2 SON(S) . 1 SISTER IS - CAR ACCIDENT ONE BROTHER IS - DIABETES AND HEART ISSUES ONE SON FROM CAR ACCIDENT\NMOTHER--COPD. SOCIAL HISTORY GENERAL: TOBACCO USE ARE YOU A:CURRENT SMOKER ARE YOU INTERESTED IN QUITTING?NOT READY TO QUIT STATES SHE HAS CUT DOWN BUT THIS IS THE ONLY ENJOYMENT SHE GETS OUT OF LIFE. COUNSELED THE PATIENT ON SMOKING EFFECTS, EDUCATION [id number]/12/2019 HOW MANY CIGARETTES A DAY DO YOU SMOKE?6-10 HOW SOON AFTER YOU WAKE UP DO YOU SMOKE YOUR FIRST CIGARETTE?31-60 MIN HOW OFTEN DO YOU SMOKE CIGARETTES?EVERY DAY PATIENT COUNSELED ON THE DANGERS OF TOBACCO USE AND URGED TO QUIT:03/26/2019 SMOKING CESSATION INFORMATION GIVEN11/06/2018 PAIN CLINIC PFS, CLERGY, PUBLIC HEALTH REFERRALS PFS REFERRAL NEEDED?NO CLERGY REFERRAL NEEDED?NO PUBLIC HEALTH REFERRAL NEEDED?NO WAS THE PROVIDER NOTIFIED OF ANY PERTINENT INFO?YES N//A HAS THE PATIENT BEEN EDUCATED REGARDING HIS/HER PLAN OF CARE?YES HAS THE PATIENT BEEN EDUCATED REGARDING PAIN, THE RISK FOR PAIN, THE IMPORTANCE OF EFFECTIVE PAIN MANAGEMENT, AND THE PAIN ASSESSMENT PROCESS?YES LATEX QUESTIONNAIRE LATEX ALLERGY : HAVE YOU EVER DEVELOPED ANY TYPE OF REACTION AFTER HANDLING LATEX PRODUCTS SUCH RUBBER GLOVES, CONDOMS, DIAPHRAGMS, BALLOONS, SOCKS, OR UNDERWEAR?NO LATEX ALLERGY : HAVE YOU EVER DEVELOPED ANY TYPE OF REACTION DURING OR AFTER DENTAL APPOINTMENT, VAGINAL/RECTAL EXAMINATION, SURGICAL PROCEDURE, OR ANY OTHER EXPOSURE?NO LATEX RISK : HAVE YOU EVER HAD ANY DIFFICULTY BREATHING OR HIVES AFTER EATING OR HANDLING ANY FRUITS, OR VEGETABLES; SUCH KIWI, BANANAS, STONE FRUITS, OR CHESTNUTSNO LATEX RISK : DO YOU HAVE A PREVIOUS PERSONAL HISTORY OF MORE THAN NINE SURGERIES, SPINA BIFIDA, OR REPEATED CATHERIZATIONS? NO LATEX RISK : ARE YOU FREQUENTLY EXPOSED TO LATEX PRODUCTS IN YOUR OCCUPATION?NO DATE ASKED : 03/26/2019 CAFFEINE CAFFEINE USE?YES HOW OFTEN AND HOW MUCH? 3-4 POTS COFFEE/DAY ADVANCE DIRECTIVE ADVANCE DIRECTIVE DISCUSSED WITH PATIENT:YES PATIENT STATES NO HCP AT THIS TIME. INFORMATION GIVEN, PATIENT DECLINED ASSISTANCE IN FILLING IT OUT AT THIS TIME. LATTER DAY [id number] JAINISM NO YARSANISM BELIEFS THAT WOULD IMPACT HEALTH CARE. LANGUAGE LANGUAGES SPOKEN:BRITISH VIRGIN ISLANDER DOMESTIC VIOLENCE DO YOU FEEL SAFE IN YOUR ENVIRONMENT?YES NEW PATIENT PAIN DIARY FROM 0-10, WHAT LEVEL IS YOUR PAIN TODAY?5 ALCOHOL SCREENING DID YOU HAVE A DRINK CONTAINING ALCOHOL IN THE PAST YEAR?NO POINTS0 INTERPRETATIONNEGATIVE RECREATIONAL DRUG USE DRUG USE?NO LEARNING BARRIERS / SPECIAL NEEDS BARRIERS TO LEARNING?NO HEARING IMPAIRED?NO VISION IMPAIRED?YES COGNITIVELY IMPAIRED?NO :CORRECTIVE LENSES READINESS TO LEARN?YES LEARNING PREFERENCES?YES :DEMONSTRATION/VERBAL INSTRUCTION LEARNING CAPABILITIES PRESENT?YES EMOTIONAL BARRIERS?NO SPECIAL DEVICES?YES :CANE USES IT OCCASSIONALLY PATIENT SAFETY OFFICER NEEDED?NO REVIEWED WITH PATIENT 01/22/19 0916 JSREVIEWED WITH PATIENT 03/26/2019 DS. HOSPITALIZATION/MAJOR DIAGNOSTIC PROCEDURE CSECTION AND HYSTERECTOMY REVIEW OF SYSTEMS REVIEWED BY: PROVIDER: BARRY AMOR . CONSTITUTIONAL: ANY CHANGE IN YOUR MEDICAL CONDITION? YES, LUPUS . CHILLS NO . FEVER NO . INFECTION: DO YOU HAVE NEW INFECTIONS? UPPER RESPIRATORY INFECTION 3-4 WEEKS AGO . DO YOU HAVE HISTORY OF MRSA? NO . MUSCULOSKELETAL: ANY NEW PATTERNS OF PAIN OR NUMBNESS? YES, INCREASING PAIN . GASTROENTEROLOGY: ANY NEW CHANGE IN BOWEL CONTROL? NO . GENITOURINARY: ANY NEW CHANGE IN BLADDER CONTROL? YES, NOT RELATED TO SPINAL ISSUES . IS THERE A CHANCE YOU COULD BE ? NO . HEMATOLOGY/LYMPH: DO YOU TAKE ANY BLOOD THINNERS? (FOR EXAMPLE- COUMADIN, PLAVIX, AGGRENOX, PLATEL, PRADAXA, OR XARELTO) NO . WHEN WAS YOUR LAST DOSE? DATE: TIME: . NEUROLOGY: HAVE YOU FALLEN IN THE PAST 12 MONTHS? YES, PT STATES THAT SHE FELL IN THE NIGHT WHILE AT HOME ABOUT 1 WEEK AGO, HIT HEAD, LOST CONSCIOUSNESS, LIVES WITH FAMILY MEMBERS, DID NOT REPORT TO ED. PT STATES THAT SHE DID NOT FEEL ANY MAJOR INJURY. DS . ANY NEW EXTREMITY NUMBNESS OR WEAKNESS? YES, PAIN . CARDIOLOGY: DO YOU HAVE A PACEMAKER OR DEFIBRILLATOR? NO . RESPIRATORY: HAVE YOU BEEN SICK IN THE PAST WEEK? NO . FEVER NO . FLU LIKE SYMPTOMS? NO . COUGH NO . INTEGUMENTARY: DO YOU HAVE ANY RASHES OR OPEN SORES? NO . ALLERGIC/IMMUNO: ARE YOU ALLERGIC TO IV DYE? NO . ANY NEW ALLERGIES? NO . PSYCHIATRIC: DO YOU HAVE THOUGHTS OF HURTING YOURSELF OR SOMEONE ELSE? NO . ARE YOU ABUSED, NEGLECTED, OR IN AN UNSAFE ENVIRONMENT? NO . ENDOCRINOLOGY: ARE YOU DIABETIC? NO . OTHER: DO YOU NEED ANY PRESCRIPTIONS? NO . IF YES, PLEASE LIST: ____ . ANY NEW PROBLEMS WITH YOUR MEDICATIONS? NO . WHEN DID YOU LAST EAT? ____ . WHEN DID YOU LAST DRINK? ____ . WHAT DID YOU LAST DRINK? ____ . NAME OF PERSON DRIVING YOU HOME? ____ . DO YOU HAVE ANY OTHER QUESTIONS OR CONCERNS NO . VITAL SIGNS WT 98.4 LBS, HT 56 IN, BMI 22.06 INDEX, BP 134/83 MM HG, HR 69 /MIN, RR 16 /MIN, TEMP 98.2 F, OXYGEN SAT % 98, SAFE IN ENV? (Y/N) Y, REVIEWED BY: DS. EXAMINATION GENERAL EXAMINATION: LUNGS:LUNG SOUNDS ARE CLEAR . HEART:HEART RATE REGULAR . MUSCULOSKELETAL:*, MUSCLE STRENGTH TESTING 5/5 BILATERAL UPPER EXTREMITIES. . CERVICAL+ FOR PAIN WITH PALPATION OF CERVICAL SPINE. + FOR PAIN WITH PALPATION OF CERVICAL PARASPINALS. . DIAGNOSTIC TESTS REVIEWEDCERVICAL MRI-05/16/2017. 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 PATIENT ALSO RECENTLY STARTED ON CBD BASED PILLS RECOMMENDED BY DR. SHELL ,NEUROLOGY. SHE WAS INSTRUCTED TO TAKE THESE TABLETS AT NIGHTTIME. STATES AFTER TAKING, FIRST DOSE AT NIGHT SHE FELL OUT OF BED. IT SHOULD BE NOTED PATIENT ALSO TAKES TRAZODONE AT NIGHT TIME AND STATES SHE CAN'T SLEEP WITHOUT IT. ADVISED TO STOP GABAPENTIN 300 MG AT NIGHT AND CBD CAPSULE AT NIGHT. TRY TAKING CBD CAPSULE 1 AT MIDDAY. CONTINUE TRAMADOL 2 TABLETS 2-3 TIMES DAILY. WE WILL CONSIDER MEDICATION CHANGES AFTER RHEUMATOLOGY EVALUATION. WILL REEVALUATE AFTER HER CERVICAL EPIDURAL STEROID INJECTION. PREVENTIVE MEDICINE PAIN CLINIC TEACHING: PROCEDURE TEACHING CERVICAL EPIDURAL STEROID PROCEDURE INFORMATION PRINTED AND REVIEWED WITH PT. PT ALSO VERBALIZES UNDERSTANDING OF PRE PROCEDURE INSTRUCTIONS REVIEWED. 03/26/2019 1035 NLJ. PROCEDURE CODES FA211 ESTABILISHED PATIENT [facility] CHARGE DISPOSITION & COMMUNICATION FOLLOW UP POST (REASON: C4-5 JEANINE I) ELECTRONICALLY SIGNED BY ZULEYMA SWANSON ON 04/09/2019 AT 04:27 PM EST DISCLAIMER : THIS IS A VISIT SUMMARY EXTRACTED FROM THE [employer] CHART. IT IS NOT A COPY OF THE [employer] PROGRESS NOTE. RIZWANA
== END ==
LOC: M PAIN 09:30
PROVIDERS: ATTEND Nurse Practitioner Family
DX: M50.10 Cervical disc disorder with radiculopathy, unspecified cervical region (principal); K21.9 Gastro-esophageal reflux disease without esophagitis; E78.5 Hyperlipidemia, unspecified; F17.210 Nicotine dependence, cigarettes, uncomplicated; Z79.82 Long term (current) use of aspirin; Z79.891 Long term (current) use of opiate analgesic; Z79.899 Other long term (current) drug therapy

== ENCOUNTER → 2019-04-23 | Outpatient (CLI) | payer MEDICARE, MEDICAID ==
[~2019-04-23] MED LIST changes: +ISOVUE-M 300 61% 15ML VIAL (Q9967) As Ordered ONE; +LIDOCAINE 1% SDV INJ 30 ML VIAL As Ordered ONE; +diazePAM 2 MG TAB As Ordered ONE; +methylPREDNISolone SUSP 40 MG/ML (DEPO-medrol) VIAL (J1030) As Ordered ONE
--- NOTE | 2019-04-23 12:27 | REP ---
Partial thoracic spine series: Two views. History: Cervical epidural injection for pain. 46 seconds of fluoroscopy time is reported. Findings: A sequence of two last image hold fluoroscopically obtained spot radiographs document needle position and contrast injection for injection procedure. Electronically Signed by Enio Harvey MD 04/23/2019 12:18 P
--- NOTE | 2019-04-27 03:05 | ECWPNPC ---
PATIENT NAME: MARY PEÑA : 1950 GENDER: FEMALE VISIT DATE: 04/23/2019 DISCHARGE DATE: 04/23/19 1020 VISIT LOCKED DATE TIME: PHYSICIAN: MATA JOHNS MD RESOURCE: MATA JOHNS MD REASON FOR APPOINTMENT 1. C7-T1 CHANTAL HISTORY OF PRESENT ILLNESS HISTORY OF PRESENT ILLNESS: PAIN THE PATIENT DESCRIBES THE PAIN... FALL RISK SCREENING: SCREENING :NO FALLS REPORTED IN THE LAST YEAR CURRENT MEDICATIONS TAKING CYMBALTA 60 MG CAPSULE DELAYED RELEASE PARTICLES 1 CAPSULE ORALLY ONCE A DAY, NOTES: 04/22 9AM TAKING METOPROLOL SUCCINATE ER 25 MG TABLET EXTENDED RELEASE 24 HOUR 1/2 TABLET ORALLY BID, NOTES: 04/22 9AM TAKING RALOXIFENE HCL 60 MG TABLET 1 TABLET ORALLY ONCE A DAY, NOTES: 04/22 9AM TAKING ASPIR-81 81 MG TABLET DELAYED RELEASE 1 TABLET ORALLY ONCE A DAY, NOTES: 04/22 9AM TAKING VITAMIN D 1000 UNIT TABLET 1 TABLET ORALLY BID, NOTES: 04/22 9AM TAKING OMEPRAZOLE 40 MG CAPSULE DELAYED RELEASE 1 CAPSULE ORALLY BID, NOTES: 04/22 9AM TAKING MIRALAX - POWDER 1 PACKET MIXED WITH 8 OUNCES OF FLUID ORALLY BID, NOTES: 04/21 9AM TAKING STIOLTO RESPIMAT 2.5-2.5 MCG/ACT AEROSOL SOLUTION 2 PUFFS INHALATION ONCE A DAY, NOTES: 04/23 5AM TAKING COLACE 100 MG CAPSULE 1 CAPSULE NEEDED ORALLY BID, NOTES: 04/22 9PM TAKING LINZESS 290 MCG CAPSULE 1 CAPSULE ORALLY ONCE A DAY, NOTES: 04/22 9PM TAKING MECLIZINE HCL 25 MG TABLET 1 TABLET ORALLY BID, NOTES: 3 DAYS TAKING TRAZODONE HCL 100 MG TABLET 1 TABLET AT BEDTIME ORALLY ONCE A DAY, NOTES: 04/22 9PM TAKING TRAMADOL HCL 50 MG TABLET 1 TAB ORALLY Q6H PRN MDD4, NOTES: 04/22 9PM TAKING MAY USE PILL MEDICAL MARIJUANA, NOTES: 1 WEEK NOT-TAKING GABAPENTIN 300 MG CAPSULE 1 CAPSULE ORALLY Q8H TID NOT-TAKING RAMIPRIL 2.5 MG CAPSULE 1 CAPSULE ORALLY ONCE A DAY NOT-TAKING MORPHINE SULFATE ER 15 MG TABLET EXTENDED RELEASE 1 TABLET ORALLY DAILY NOT-TAKING MELOXICAM 7.5 MG TABLET 1 TABLET ORALLY BID NOT-TAKING TRIAMCINOLONE ACETONIDE 0.025 % CREAM 1 APPLICATION TO AFFECTED AREA EXTERNALLY TWICE A DAY NOT-TAKING CLOTRIMAZOLE 1 % CREAM 1 APPLICATION TO AFFECTED AREA EXTERNALLY TWICE A DAY NOT-TAKING ERGOCALCIFEROL 98488 UNIT CAPSULE 1 CAPSULE ORALLY WEEKLY NOT-TAKING CARAFATE 1 GM TABLET 1 TABLET ON AN EMPTY STOMACH ORALLY TWICE A DAY NOT-TAKING COLACE 100 MG CAPSULE 1 CAPSULE NEEDED ORALLY ONCE A DAY MEDICATION LIST REVIEWED AND RECONCILED WITH THE PATIENT PAST MEDICAL HISTORY GERD OSTEOPOROSIS HYPERLIPID CHRONIC PAIN CONSTIPATION PINCHED NERVE RESTLESS ARM SYNDROME CARPAL TUNNEL RIGHT LUPUS ALLERGIES GABAPENTIN: DIFFICULTY BREATHING - ALLERGY SURGICAL HISTORY CSECTION 1974 HYSTERECTOMY 1974 CHOLECYSTECTOMY 2007 LASER DISKECTOMYVAT L5-S1 2007 FAMILY HISTORY FATHER: 68 YRS, DIAGNOSED WITH HYPERTENSION, UNSPECIFIED HEART DISEASE MOTHER: , OTHER SPECIFIED CONDITIONS INFLUENCING HEALTH STATUS 1 BROTHER(S) , 5 SISTER(S) . 2 SON(S) . 1 SISTER IS - CAR ACCIDENT ONE BROTHER IS - DIABETES AND HEART ISSUES ONE SON FROM CAR ACCIDENT\NMOTHER--COPD. SOCIAL HISTORY GENERAL: TOBACCO USE ARE YOU A:CURRENT SMOKER ARE YOU INTERESTED IN QUITTING?NOT READY TO QUIT STATES SHE HAS CUT DOWN BUT THIS IS THE ONLY ENJOYMENT SHE GETS OUT OF LIFE. COUNSELED THE PATIENT ON SMOKING EFFECTS, EDUCATION [id number]/12/2019 HOW MANY CIGARETTES A DAY DO YOU SMOKE?6-10 HOW SOON AFTER YOU WAKE UP DO YOU SMOKE YOUR FIRST CIGARETTE?31-60 MIN HOW OFTEN DO YOU SMOKE CIGARETTES?EVERY DAY PATIENT COUNSELED ON THE DANGERS OF TOBACCO USE AND URGED TO QUIT:04/23/2019 SMOKING CESSATION INFORMATION GIVEN11/06/2018 PAIN CLINIC PFS, CLERGY, PUBLIC HEALTH REFERRALS PFS REFERRAL NEEDED?NO CLERGY REFERRAL NEEDED?NO PUBLIC HEALTH REFERRAL NEEDED?NO WAS THE PROVIDER NOTIFIED OF ANY PERTINENT INFO?YES N//A HAS THE PATIENT BEEN EDUCATED REGARDING HIS/HER PLAN OF CARE?YES HAS THE PATIENT BEEN EDUCATED REGARDING PAIN, THE RISK FOR PAIN, THE IMPORTANCE OF EFFECTIVE PAIN MANAGEMENT, AND THE PAIN ASSESSMENT PROCESS?YES LATEX QUESTIONNAIRE LATEX ALLERGY : HAVE YOU EVER DEVELOPED ANY TYPE OF REACTION AFTER HANDLING LATEX PRODUCTS SUCH RUBBER GLOVES, CONDOMS, DIAPHRAGMS, BALLOONS, SOCKS, OR UNDERWEAR?NO LATEX ALLERGY : HAVE YOU EVER DEVELOPED ANY TYPE OF REACTION DURING OR AFTER DENTAL APPOINTMENT, VAGINAL/RECTAL EXAMINATION, SURGICAL PROCEDURE, OR ANY OTHER EXPOSURE?NO LATEX RISK : HAVE YOU EVER HAD ANY DIFFICULTY BREATHING OR HIVES AFTER EATING OR HANDLING ANY FRUITS, OR VEGETABLES; SUCH KIWI, BANANAS, STONE FRUITS, OR CHESTNUTSNO LATEX RISK : DO YOU HAVE A PREVIOUS PERSONAL HISTORY OF MORE THAN NINE SURGERIES, SPINA BIFIDA, OR REPEATED CATHERIZATIONS? NO LATEX RISK : ARE YOU FREQUENTLY EXPOSED TO LATEX PRODUCTS IN YOUR OCCUPATION?NO DATE ASKED : 04/23/2019 CAFFEINE CAFFEINE USE?YES HOW OFTEN AND HOW MUCH? 3-4 POTS COFFEE/DAY ADVANCE DIRECTIVE ADVANCE DIRECTIVE DISCUSSED WITH PATIENT:YES PATIENT STATES NO HCP AT THIS TIME. INFORMATION GIVEN, PATIENT DECLINED ASSISTANCE IN FILLING IT OUT AT THIS TIME. PRESYBETERIAN [id number] SIKHISM NO LATTER DAY BELIEFS THAT WOULD IMPACT HEALTH CARE. LANGUAGE LANGUAGES SPOKEN:BULGARIAN DOMESTIC VIOLENCE DO YOU FEEL SAFE IN YOUR ENVIRONMENT?YES NEW PATIENT PAIN DIARY FROM 0-10, WHAT LEVEL IS YOUR PAIN TODAY?5 ALCOHOL SCREENING DID YOU HAVE A DRINK CONTAINING ALCOHOL IN THE PAST YEAR?NO POINTS0 INTERPRETATIONNEGATIVE RECREATIONAL DRUG USE DRUG USE?NO LEARNING BARRIERS / SPECIAL NEEDS BARRIERS TO LEARNING?NO HEARING IMPAIRED?NO VISION IMPAIRED?YES COGNITIVELY IMPAIRED?NO :CORRECTIVE LENSES READINESS TO LEARN?YES LEARNING PREFERENCES?YES :DEMONSTRATION/VERBAL INSTRUCTION LEARNING CAPABILITIES PRESENT?YES EMOTIONAL BARRIERS?NO SPECIAL DEVICES?YES :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 HOSPITALIZATION/MAJOR DIAGNOSTIC PROCEDURE CSECTION AND HYSTERECTOMY REVIEW OF SYSTEMS REVIEWED BY: PROVIDER: . CONSTITUTIONAL: ANY CHANGE IN YOUR MEDICAL CONDITION? NO . CHILLS NO . FEVER NO . INFECTION: DO YOU HAVE NEW INFECTIONS? NO . DO YOU HAVE HISTORY OF MRSA? NO . MUSCULOSKELETAL: ANY NEW PATTERNS OF PAIN OR NUMBNESS? YES, INCREASING PAIN . GASTROENTEROLOGY: ANY NEW CHANGE IN BOWEL CONTROL? NO . GENITOURINARY: ANY NEW CHANGE IN BLADDER CONTROL? YES, PT STATES THAT SHE IS HAVING INCONTINENCE ISSUES, NOT RELATED TO HER SPINE . IS THERE A CHANCE YOU COULD BE ? NO . HEMATOLOGY/LYMPH: DO YOU TAKE ANY BLOOD THINNERS? (FOR EXAMPLE- COUMADIN, PLAVIX, AGGRENOX, PLATEL, PRADAXA, OR XARELTO) NO . WHEN WAS YOUR LAST DOSE? DATE: TIME: . NEUROLOGY: HAVE YOU FALLEN IN THE PAST 12 MONTHS? YES, PT STATES THAT SHE FELL WHILE AT HOME, TRIPPED, BRUSING, CUT ON HER NOSE, NO REPORT TO ED. DS . ANY NEW EXTREMITY NUMBNESS OR WEAKNESS? NO . CARDIOLOGY: DO YOU HAVE A PACEMAKER OR DEFIBRILLATOR? NO . RESPIRATORY: HAVE YOU BEEN SICK IN THE PAST WEEK? NO . FEVER NO . FLU LIKE SYMPTOMS? NO . COUGH NO . INTEGUMENTARY: DO YOU HAVE ANY RASHES OR OPEN SORES? NO . ALLERGIC/IMMUNO: ARE YOU ALLERGIC TO IV DYE? NO . ANY NEW ALLERGIES? NO . PSYCHIATRIC: DO YOU HAVE THOUGHTS OF HURTING YOURSELF OR SOMEONE ELSE? NO . ARE YOU ABUSED, NEGLECTED, OR IN AN UNSAFE ENVIRONMENT? NO . ENDOCRINOLOGY: ARE YOU DIABETIC? NO . OTHER: DO YOU NEED ANY PRESCRIPTIONS? NO . IF YES, PLEASE LIST: ____ . ANY NEW PROBLEMS WITH YOUR MEDICATIONS? NO . WHEN DID YOU LAST EAT? 04/22/2019 7PM . WHEN DID YOU LAST DRINK? 04/22/2019 12 MIDNIGHT . WHAT DID YOU LAST DRINK? TEA . NAME OF PERSON DRIVING YOU HOME? FERNANDO PAREDES . DO YOU HAVE ANY OTHER QUESTIONS OR CONCERNS NO . VITAL SIGNS WT 96.8 LBS, HT 56 IN, BMI 21.70 INDEX, BP 131/82 MM HG, HR 80 /MIN, RR 16 /MIN, TEMP 96.0 F, OXYGEN SAT % 94%, SAFE IN ENV? (Y/N) Y, NA INITIALS AW 0847, REVIEWED BY: CHUCK. ASSESSMENTS CERVICAL DISC DISORDER WITH RADICULOPATHY OF CERVICAL REGION - M50.10 (PRIMARY) TREATMENT CERVICAL DISC DISORDER WITH RADICULOPATHY OF CERVICAL REGION [facility] FLUORO GUIDE SPINE INJECTION (PAIN) PROCEDURES PN CERVICAL EPIDURAL PRE PROCEDURE DIAGNOSIS CERVICAL DISC DISORDER WITH RADICULOPATHY POST PROCEDURE DIAGNOSIS CERVICAL DISC DISORDER WITH RADICULOPATHY PROCEDURE CERVICAL EPIDURAL STEROID INJECTION UNDER FLUOROSCOPIC GUIDANCE SURGEON DR. MATA JOHNS STATION MANAGER NONE ANESTHESIA LOCAL PRE PROCEDURE NOTE THE PATIENT HAS A HISTORY OF CHRONIC CERVICAL PAIN. I EVALUATED THE PATIENT AND REVIEWED THE CHART. I WENT OVER THE RISKS, ALTERNATIVES, AND BENEFITS ASSOCIATED WITH THIS PROCEDURE. THE PATIENT WOULD LIKE TO PROCEED AND GIVES CONSENT TO PERFORM THE PROCEDURE. THE PATIENT DENIES UNEXPLAINABLE WEIGHT LOSS, FEVER, CHILLS, OR NEW CHANGES IN URINARY OR BOWEL CONTROL DESCRIPTION OF PROCEDURE THE PATIENT WAS BROUGHT TO THE PROCEDURE ROOM AND PLACED IN THE PRONE POSITION. THE CERVICOTHORACIC AREA WAS CLEANED WITH BETADINE SOLUTION AND DRAPED ASEPTICALLY. THE PROCEDURE WAS DONE UNDER STERILE CONDITIONS. I CHECKED LATERALITY AND THE LEVEL WHERE THE PROCEDURE WAS GOING TO BE PERFORMED WITH THE PATIENT AND THE SUPPORTING STAFF AT THE MOMENT OF THE TIME OUT IN THE PROCEDURE ROOM. UNDER FLUOROSCOPIC GUIDANCE, THE TARGET WAS SELECTED AT THE INTERLAMINAR LEVEL OF C7-T1. LIDOCAINE WAS USED TO NUMB THE SKIN AND THE SUBCUTANEOUS TISSUE BELOW IT. EPIDURAL TUOHY NEEDLE 17-GAUGE WAS ADVANCED UNDER FLUOROSCOPIC GUIDANCE AND FOLLOWING PATIENT FEEDBACK UNTIL THE EPIDURAL SPACE WAS REACHED 6 CM DEEP INTO THE SKIN BY THE LOSS OF RESISTANCE TECHNIQUE. ISOVUE M DYE 30%, 0.25 ML, WAS INJECTED SHOWING ADEQUATE SPREAD OF THE DYE. THEN, A SOLUTION OF 3 ML OF NORMAL SALINE WITH DEPO-MEDROL 60 MG WAS INJECTED SLOWLY FOLLOWING PATIENT FEEDBACK. THERE WAS NO EVIDENCE OF BLOOD, PARESTHESIA OR CEREBROSPINAL FLUID DURING THE PROCEDURE. THE PATIENT WAS SENT TO THE RECOVERY ROOM. THE PATIENT WAS MOVING THE EXTREMITIES AND DOING WELL. THERE WAS NO COMPLICATION DURING THE PROCEDURE. FLUOROSCOPY TIME WAS 46 SECONDS POST PROCEDURE NOTE THE PATIENT WILL BE SEEN IN A FOLLOW UP IN THE NEXT FEW WEEKS. I AM LOOKING FOR LONG LASTING PAIN RELIEF WITH THIS INJECTION. DEPENDING ON THE EPIDURAL RESULTS, I MAY CONSIDER TRYING A CERVICAL THERAPEUTIC FACET BLOCK IN THE FUTURE. INSTRUCTIONS WERE GIVEN, QUESTIONS WERE ANSWERED, AND THE PATIENT EXPRESSED UNDERSTANDING AND AGREES WITH THE PLAN. I, CAMILA REID, DOCUMENTED THE ABOVE INFORMATION ACTING A SCRIBE FOR DR. JOHNS. I HAVE REVIEWED THE ABOVE DOCUMENT, WRITTEN BY CAMILA MARTE AND I VERIFY THAT IT IS ACCURATE. PROCEDURE CODES 59838 CERVICAL/THORACIC W/ IMAGING 6045F RADXPS IN END [id number] PXD DISPOSITION & COMMUNICATION FOLLOW UP 3 WEEKS ELECTRONICALLY SIGNED BY MATA JOHNS MD, MD ON 04/26/2019 AT 11:44 AM EST DISCLAIMER : THIS IS A VISIT SUMMARY EXTRACTED FROM THE [facility] [employer] CHART. IT IS NOT A COPY OF THE [employer] [employer] PROGRESS NOTE. MTDD
== END ==
LOC: M PAIN 08:30
PROVIDERS: ATTEND Anesthesiology
DX: M50.10 Cervical disc disorder with radiculopathy, unspecified cervical region (principal); K21.9 Gastro-esophageal reflux disease without esophagitis; F17.210 Nicotine dependence, cigarettes, uncomplicated; Z88.8 Allergy status to other drugs, medicaments and biological substances; Z79.82 Long term (current) use of aspirin; Z79.891 Long term (current) use of opiate analgesic; Z79.899 Other long term (current) drug therapy
CPT/HCPCS: 62321; J1030; Q9967

== ENCOUNTER → 2019-05-07 | Outpatient (CLI) | payer MEDICARE, MEDICAID ==
[~2019-05-07] MED LIST changes: -ISOVUE-M 300 61% 15ML VIAL (Q9967) As Ordered ONE; -LIDOCAINE 1% SDV INJ 30 ML VIAL As Ordered ONE; -diazePAM 2 MG TAB As Ordered ONE; -methylPREDNISolone SUSP 40 MG/ML (DEPO-medrol) VIAL (J1030) As Ordered ONE
--- NOTE | 2019-05-08 01:25 | ECWPNPC ---
PATIENT NAME: MARY PEÑA : 1950 GENDER: FEMALE VISIT DATE: 05/07/2019 DISCHARGE DATE: 05/07/19 1117 VISIT LOCKED DATE TIME: PHYSICIAN: BARRY DUMONT RESOURCE: BARRY DUMONT REASON FOR APPOINTMENT 1. POST CHANTAL HISTORY OF PRESENT ILLNESS HISTORY OF PRESENT ILLNESS: HERE FOR POST PROCEDURE FOLLOW-UP. HAD CERVICAL EPIDURAL STEROID IN EJECTION, C7/T1 ON 04/23/2019. PATIENT STATES THAT THIS HELPED TREMENDOUSLY WITH HER NECK, RIGHT SHOULDER AND RIGHT UPPER ARM PAIN. PAIN PERSISTS IN AREA BELOW THE ELBOW TO HAND. SHE IS SCHEDULED TO SEE RHEUMATOLOGY. ONLY USING TRAMADOL 1 IN THE MORNING FOR STIFFNESS AND POSSIBLY 1 AT NIGHT, BUT NOT VERY OFTEN. THIS WAS STARTED AT HER LAST VISIT. SHE IS UNABLE TO TOLERATE MEDICAL MARIJUANA SO SHE STOPPED THAT AND WE HAVE SWITCHED TO TRAMADOL FOR PERIODIC USE. RATING PAIN LEVEL A 0/10 VAS. PAIN THE PATIENT DESCRIBES THE PAIN... FALL RISK SCREENING: SCREENING :NO FALLS REPORTED IN THE LAST YEAR CURRENT MEDICATIONS TAKING CYMBALTA 60 MG CAPSULE DELAYED RELEASE PARTICLES 1 CAPSULE ORALLY ONCE A DAY, NOTES: 04/22 9AM TAKING METOPROLOL SUCCINATE ER 25 MG TABLET EXTENDED RELEASE 24 HOUR 1/2 TABLET ORALLY BID, NOTES: 04/22 9AM TAKING RALOXIFENE HCL 60 MG TABLET 1 TABLET ORALLY ONCE A DAY, NOTES: 04/22 9AM TAKING ASPIR-81 81 MG TABLET DELAYED RELEASE 1 TABLET ORALLY ONCE A DAY, NOTES: 04/22 9AM TAKING VITAMIN D 1000 UNIT TABLET 1 TABLET ORALLY BID, NOTES: 04/22 9AM TAKING OMEPRAZOLE 40 MG CAPSULE DELAYED RELEASE 1 CAPSULE ORALLY BID, NOTES: 04/22 9AM TAKING MIRALAX - POWDER 1 PACKET MIXED WITH 8 OUNCES OF FLUID ORALLY BID, NOTES: 04/21 9AM TAKING STIOLTO RESPIMAT 2.5-2.5 MCG/ACT AEROSOL SOLUTION 2 PUFFS INHALATION ONCE A DAY, NOTES: 04/23 5AM TAKING COLACE 100 MG CAPSULE 1 CAPSULE NEEDED ORALLY BID, NOTES: 04/22 9PM TAKING LINZESS 290 MCG CAPSULE 1 CAPSULE ORALLY ONCE A DAY, NOTES: 04/22 9PM TAKING MECLIZINE HCL 25 MG TABLET 1 TABLET ORALLY BID, NOTES: 3 DAYS TAKING TRAZODONE HCL 100 MG TABLET 1 TABLET AT BEDTIME ORALLY ONCE A DAY, NOTES: 04/22 9PM TAKING TRAMADOL HCL 50 MG TABLET 1 TAB ORALLY Q6H PRN MDD4, NOTES: 04/22 9PM TAKING MAY USE PILL MEDICAL MARIJUANA, NOTES: 1 WEEK NOT-TAKING GABAPENTIN 300 MG CAPSULE 1 CAPSULE ORALLY Q8H TID NOT-TAKING RAMIPRIL 2.5 MG CAPSULE 1 CAPSULE ORALLY ONCE A DAY NOT-TAKING MORPHINE SULFATE ER 15 MG TABLET EXTENDED RELEASE 1 TABLET ORALLY DAILY NOT-TAKING MELOXICAM 7.5 MG TABLET 1 TABLET ORALLY BID NOT-TAKING TRIAMCINOLONE ACETONIDE 0.025 % CREAM 1 APPLICATION TO AFFECTED AREA EXTERNALLY TWICE A DAY NOT-TAKING CLOTRIMAZOLE 1 % CREAM 1 APPLICATION TO AFFECTED AREA EXTERNALLY TWICE A DAY NOT-TAKING ERGOCALCIFEROL 10174 UNIT CAPSULE 1 CAPSULE ORALLY WEEKLY NOT-TAKING CARAFATE 1 GM TABLET 1 TABLET ON AN EMPTY STOMACH ORALLY TWICE A DAY NOT-TAKING COLACE 100 MG CAPSULE 1 CAPSULE NEEDED ORALLY ONCE A DAY MEDICATION LIST REVIEWED AND RECONCILED WITH THE PATIENT PAST MEDICAL HISTORY GERD OSTEOPOROSIS HYPERLIPID CHRONIC PAIN CONSTIPATION PINCHED NERVE RESTLESS ARM SYNDROME CARPAL TUNNEL RIGHT LUPUS ALLERGIES GABAPENTIN: DIFFICULTY BREATHING - ALLERGY SURGICAL HISTORY CSECTION 1973 HYSTERECTOMY 1974 CHOLECYSTECTOMY 2007 LASER DISKECTOMYVAT L5-S1 2007 FAMILY HISTORY FATHER: 68 YRS, DIAGNOSED WITH HYPERTENSION, UNSPECIFIED HEART DISEASE MOTHER: , OTHER SPECIFIED CONDITIONS INFLUENCING HEALTH STATUS 1 BROTHER(S) , 5 SISTER(S) . 2 SON(S) . 1 SISTER IS - CAR ACCIDENT ONE BROTHER IS - DIABETES AND HEART ISSUES ONE SON FROM CAR ACCIDENT\NMOTHER--COPD. SOCIAL HISTORY GENERAL: TOBACCO USE ARE YOU A:CURRENT SMOKER HOW OFTEN DO YOU SMOKE CIGARETTES?EVERY DAY HOW SOON AFTER YOU WAKE UP DO YOU SMOKE YOUR FIRST CIGARETTE?31-60 MIN HOW MANY CIGARETTES A DAY DO YOU SMOKE?6-10 ARE YOU INTERESTED IN QUITTING?NOT READY TO QUIT STATES SHE HAS CUT DOWN BUT THIS IS THE ONLY ENJOYMENT SHE GETS OUT OF LIFE. PATIENT COUNSELED ON THE DANGERS OF TOBACCO USE AND URGED TO QUIT:04/23/2019 COUNSELED THE PATIENT ON SMOKING EFFECTS, EDUCATION [id number]/12/2019 SMOKING CESSATION INFORMATION GIVEN11/06/2018 PAIN CLINIC PFS, CLERGY, PUBLIC HEALTH REFERRALS PFS REFERRAL NEEDED?NO CLERGY REFERRAL NEEDED?NO PUBLIC HEALTH REFERRAL NEEDED?NO WAS THE PROVIDER NOTIFIED OF ANY PERTINENT INFO?YES N//A HAS THE PATIENT BEEN EDUCATED REGARDING HIS/HER PLAN OF CARE?YES HAS THE PATIENT BEEN EDUCATED REGARDING PAIN, THE RISK FOR PAIN, THE IMPORTANCE OF EFFECTIVE PAIN MANAGEMENT, AND THE PAIN ASSESSMENT PROCESS?YES LATEX QUESTIONNAIRE LATEX ALLERGY : HAVE YOU EVER DEVELOPED ANY TYPE OF REACTION AFTER HANDLING LATEX PRODUCTS SUCH RUBBER GLOVES, CONDOMS, DIAPHRAGMS, BALLOONS, SOCKS, OR UNDERWEAR?NO LATEX ALLERGY : HAVE YOU EVER DEVELOPED ANY TYPE OF REACTION DURING OR AFTER DENTAL APPOINTMENT, VAGINAL/RECTAL EXAMINATION, SURGICAL PROCEDURE, OR ANY OTHER EXPOSURE?NO DATE ASKED : 04/23/2019 LATEX RISK : HAVE YOU EVER HAD ANY DIFFICULTY BREATHING OR HIVES AFTER EATING OR HANDLING ANY FRUITS, OR VEGETABLES; SUCH KIWI, BANANAS, STONE FRUITS, OR CHESTNUTSNO LATEX RISK : DO YOU HAVE A PREVIOUS PERSONAL HISTORY OF MORE THAN NINE SURGERIES, SPINA BIFIDA, OR REPEATED CATHERIZATIONS? NO LATEX RISK : ARE YOU FREQUENTLY EXPOSED TO LATEX PRODUCTS IN YOUR OCCUPATION?NO CAFFEINE CAFFEINE USE?YES HOW OFTEN AND HOW MUCH? 3-4 POTS COFFEE/DAY ADVANCE DIRECTIVE ADVANCE DIRECTIVE DISCUSSED WITH PATIENT:YES PATIENT STATES NO HCP AT THIS TIME. INFORMATION GIVEN, PATIENT DECLINED ASSISTANCE IN FILLING IT OUT AT THIS TIME. MORAVIAN [id number] YARSANISM NO SCIENTOLOGY BELIEFS THAT WOULD IMPACT HEALTH CARE. LANGUAGE LANGUAGES SPOKEN:PASHTO DOMESTIC VIOLENCE DO YOU FEEL SAFE IN YOUR ENVIRONMENT?YES NEW PATIENT PAIN DIARY FROM 0-10, WHAT LEVEL IS YOUR PAIN TODAY?5 ALCOHOL SCREENING DID YOU HAVE A DRINK CONTAINING ALCOHOL IN THE PAST YEAR?NO POINTS0 INTERPRETATIONNEGATIVE RECREATIONAL DRUG USE DRUG USE?NO LEARNING BARRIERS / SPECIAL NEEDS BARRIERS TO LEARNING?NO HEARING IMPAIRED?NO VISION IMPAIRED?YES COGNITIVELY IMPAIRED?NO :CORRECTIVE LENSES READINESS TO LEARN?YES LEARNING PREFERENCES?YES :DEMONSTRATION/VERBAL INSTRUCTION LEARNING CAPABILITIES PRESENT?YES EMOTIONAL BARRIERS?NO SPECIAL DEVICES?YES :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 HOSPITALIZATION/MAJOR DIAGNOSTIC PROCEDURE CSECTION AND HYSTERECTOMY REVIEW OF SYSTEMS REVIEWED BY: PROVIDER: BARRY AMOR . CONSTITUTIONAL: ANY CHANGE IN YOUR MEDICAL CONDITION? NO . CHILLS NO . FEVER NO . INFECTION: DO YOU HAVE NEW INFECTIONS? NO . DO YOU HAVE HISTORY OF MRSA? NO . MUSCULOSKELETAL: ANY NEW PATTERNS OF PAIN OR NUMBNESS? NO . GASTROENTEROLOGY: ANY NEW CHANGE IN BOWEL CONTROL? NO . GENITOURINARY: ANY NEW CHANGE IN BLADDER CONTROL? YES . IS THERE A CHANCE YOU COULD BE ? NO . HEMATOLOGY/LYMPH: DO YOU TAKE ANY BLOOD THINNERS? (FOR EXAMPLE- COUMADIN, PLAVIX, AGGRENOX, PLATEL, PRADAXA, OR XARELTO) NO . WHEN WAS YOUR LAST DOSE? DATE: TIME: . NEUROLOGY: HAVE YOU FALLEN IN THE PAST 12 MONTHS? NO . ANY NEW EXTREMITY NUMBNESS OR WEAKNESS? YES - RIGHT ELBOW TO HAND . CARDIOLOGY: DO YOU HAVE A PACEMAKER OR DEFIBRILLATOR? NO . RESPIRATORY: HAVE YOU BEEN SICK IN THE PAST WEEK? NO . FEVER NO . FLU LIKE SYMPTOMS? NO . COUGH NO . INTEGUMENTARY: DO YOU HAVE ANY RASHES OR OPEN SORES? NO . ALLERGIC/IMMUNO: ARE YOU ALLERGIC TO IV DYE? NO . ANY NEW ALLERGIES? NO . PSYCHIATRIC: DO YOU HAVE THOUGHTS OF HURTING YOURSELF OR SOMEONE ELSE? NO . ARE YOU ABUSED, NEGLECTED, OR IN AN UNSAFE ENVIRONMENT? NO . ENDOCRINOLOGY: ARE YOU DIABETIC? NO . OTHER: DO YOU NEED ANY PRESCRIPTIONS? YES . IF YES, PLEASE LIST: TRAMADOL, TIZANIDINE . ANY NEW PROBLEMS WITH YOUR MEDICATIONS? NO . WHEN DID YOU LAST EAT? ____ . WHEN DID YOU LAST DRINK? ____ . WHAT DID YOU LAST DRINK? ____ . NAME OF PERSON DRIVING YOU HOME? ____ . DO YOU HAVE ANY OTHER QUESTIONS OR CONCERNS NO . VITAL SIGNS WT 96.4 LBS, HT 56 IN, BMI 21.61 INDEX, BP 128/75 MM HG, HR 81 /MIN, RR 16 /MIN, TEMP 98.0 F, OXYGEN SAT % 97%, NA INITIALS AW 1017, REVIEWED BY: LS. EXAMINATION GENERAL EXAMINATION: GENERALAWAKE,ALERT ,PLEASANT . PSYCHAFFECT NORMAL . LUNGS:LUNG STEWARD ARE CLEAR TO AUSCULTATION BILATERALLY. GOOD MOVEMENT OF AIR . HEART:S1, S2 IN A REGULAR RATE AND RHYTHM. NO SIGNIFICANT MURMURS, RUBS OR GALLOPS NOTED . 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 BRINGS IN MEDICATIONS WHICH IS APPROPRIATE FOR WHAT WAS DISPENSED. RECENT URINE TOXICOLOGY REVIEWED. NO UNAUTHORIZED MEDICATIONS. NO ILLICIT SUBSTANCES AND PRESCRIBED MEDICATIONS WERE PRESENT. URINE TOX TODAY, RISKS OF NARCOTIC/OPIOD MEDICATIONS INCLUDES BUT IS NOT LIMITED TO RISK OF DEPENDANCE/DEVELOPMENT OF ADDICTION, MOOD DISTURBANCE AND DEPRESSION, OSTEOPOROSIS, HORMONAL AND LABIDAL CHANGES, RESPIRATORY DEPRESSION AND . PATIENT IS ADVISED NOT TO DRIVE OR DRINK ALCOHOL WHILE ON THESE MEDICATIONS. PROCEDURE CODES FA211 ESTABILISHED PATIENT [facility] CHARGE DISPOSITION & COMMUNICATION FOLLOW UP 2 MONTHS ELECTRONICALLY SIGNED BY ZULEYMA SWANSON ON 05/07/2019 AT 04:12 PM EST DISCLAIMER : THIS IS A VISIT SUMMARY EXTRACTED FROM THE [employer] CHART. IT IS NOT A COPY OF THE [employer] PROGRESS NOTE. RIZWANA
== END ==
LOC: M PAIN 10:15
PROVIDERS: ATTEND Nurse Practitioner Family
DX: M50.10 Cervical disc disorder with radiculopathy, unspecified cervical region (principal); G56.91 Unspecified mononeuropathy of right upper limb; Z79.891 Long term (current) use of opiate analgesic

== ENCOUNTER → 2019-05-14 | Outpatient (REF) | payer MEDICARE, MEDICAID ==
[2019-05-14 13:06] LABS: C REACTIVE PROTEIN QUANTITATIV < 0.30 MG/DL (0.00-0.30); COMPLEMENT C3 92 MG/DL (90-180); COMPLEMENT C4 22 MG/DL (10-40); RHEUMATOID FACTOR QUANT 39.7 IU/ML (<15.0)
[2019-05-16 14:10] LABS: CYCLIC CITRULLINATED PEPTIDE 22 units (0-19); SSA SJOGRENS A <0.2 AI (0.0-0.9); SSB SJOGRENS B <0.2 AI (0.0-0.9)
== END ==
LOC: M SFHCRHEU 09:25
PROVIDERS: ATTEND Internal Medicine
DX: R76.8 Other specified abnormal immunological findings in serum (principal); R76.0 Raised antibody titer
CPT/HCPCS: 36415; 85613; 85652; 85732; 86140; 86160; 86200; 86235; 86431; G0463

== ENCOUNTER → 2019-05-20 | Outpatient (CLI) | payer MEDICARE, MEDICAID ==
--- NOTE | 2019-05-23 15:43 | DEXA ---
AP SPINE L1 - L4 0.600 -4.8 -3.2 LT FEMUR TOTAL 0.537 -3.7 -2.4 LT NECK 0.562 -3.4 -1.8 RT FEMUR TOTAL 0.561 -3.5 -2.2 RT NECK 0.563 -3.4 -1.8 TOTAL BODY TOTAL OTHER COMMENTS: There is osteoporosis of the spine and hips. The density of the spine has increased 11.1% since 07/16/2014. The density of the left hip has increased 2.3% since 07/16/2014. The density of the right hip has decreased 1.6% since 07/16/2014. FOLLOW-UP: Recommendation for the next bone density exam: 2 years. RIZWANA
== END ==
LOC: M WHC 09:29
PROVIDERS: ATTEND Internal Medicine
DX: M81.0 Age-related osteoporosis without current pathological fracture (principal)

== ENCOUNTER → 2019-06-27 | Outpatient (REF) | payer MEDICARE, MEDICAID ==
[2019-06-27 14:26] LABS: APPEARANCE, URINE CLEAR (CLEAR); BACTERIA, URINE AUTO 1+ (NEGATIVE); BILIRUBIN, URINE AUTO NEGATIVE (NEGATIVE); BLOOD, URINE BLOOD NEGATIVE (NEGATIVE); COLOR, URINE YELLOW (YELLOW); GLUCOSE, URINE (UA) AUTO NEGATIVE (NEGATIVE); KETONE, URINE AUTO NEGATIVE (NEGATIVE); LEUKOCYTE ESTERASE, URINE AUTO NEGATIVE (NEGATIVE); NITRITE, URINE AUTO NEGATIVE (NEGATIVE); PROTEIN, URINE AUTO NEGATIVE (NEGATIVE); RBC, URINE AUTO 0 /HPF (0-3); SPECIFIC GRAVITY URINE AUTO 1.004 (1.002-1.035); SQUAMOUS EPITHELIAL CELL UR AU 0 /HPF (0-6); UROBILINOGEN, URINE AUTO 0.2 mg/dL (0.0-2.0); WBC, URINE AUTO 0 /HPF (0-3)
== END ==
LOC: M SMT 13:38
PROVIDERS: ATTEND Nurse Practitioner Women's Health
DX: R35.0 Frequency of micturition (principal)
CPT/HCPCS: 51798; 81001; 87086; G0463

== ENCOUNTER → 2019-07-02 | Outpatient (CLI) | payer MEDICARE, MEDICAID ==
--- NOTE | 2019-07-04 03:12 | ECWPNPC ---
PATIENT NAME: MARY PEÑA : 1950 GENDER: FEMALE VISIT DATE: 07/02/2019 DISCHARGE DATE: 07/02/19 1113 VISIT LOCKED DATE TIME: PHYSICIAN: BARRY DUMONT RESOURCE: BARRY DUMONT REASON FOR APPOINTMENT 1. 2 MONTH HISTORY OF PRESENT ILLNESS HISTORY OF PRESENT ILLNESS: PHONE CALL TO PATIENT AND SHE IS AGREEABLE TO TELEPHONE VISIT TODAY. CONTINUES TO DO WELL WITH NECK PAIN AFTER INJECTION SEVERAL MONTHS AGO. CHIEF AREA OF PAIN IS RIGHT HIP AND LOW BACK. RATING PAIN LEVEL A 5/10 VAS. USING TRAMADOL 2 TABLETS 2 TIMES DAILY AND FINDS MEDICATION MINIMALLY EFFECTIVE. WE'LL BE HAVING PET SCAN TOMORROW FOR A LUNG NODULE THAT HAS GOTTEN BIGGER. STATES WEIGHT IS STABLE. REPORTING NORMAL BOWEL AND BLADDER FUNCTION. DISCUSSED MEDICATION AND TREATMENT OPTIONS. PAIN THE PATIENT DESCRIBES THE PAIN... FALL RISK SCREENING: SCREENING :NO FALLS REPORTED IN THE LAST YEAR CURRENT MEDICATIONS TAKING CYMBALTA 60 MG CAPSULE DELAYED RELEASE PARTICLES 1 CAPSULE ORALLY ONCE A DAY, NOTES: 04/22 9AM TAKING METOPROLOL SUCCINATE ER 25 MG TABLET EXTENDED RELEASE 24 HOUR 1/2 TABLET ORALLY BID, NOTES: 04/22 9AM TAKING ASPIR-81 81 MG TABLET DELAYED RELEASE 1 TABLET ORALLY ONCE A DAY, NOTES: 04/22 9AM TAKING VITAMIN D 1000 UNIT TABLET 1 TABLET ORALLY BID, NOTES: 04/22 9AM TAKING OMEPRAZOLE 40 MG CAPSULE DELAYED RELEASE 1 CAPSULE ORALLY BID, NOTES: 04/22 9AM TAKING MIRALAX - POWDER 1 PACKET MIXED WITH 8 OUNCES OF FLUID ORALLY BID, NOTES: 04/21 9AM TAKING STIOLTO RESPIMAT 2.5-2.5 MCG/ACT AEROSOL SOLUTION 2 PUFFS INHALATION ONCE A DAY, NOTES: 04/23 5AM TAKING COLACE 100 MG CAPSULE 1 CAPSULE NEEDED ORALLY BID, NOTES: 04/22 9PM TAKING MECLIZINE HCL 12.5 MG TABLET 1 TABLET ORALLY THREE TIMES DAILY NEEDED, NOTES: 3 DAYS TAKING MAY USE PILL MEDICAL MARIJUANA, NOTES: 1 WEEK TAKING TRAZODONE HCL 100 MG TABLET 1 TABLET AT BEDTIME ORALLY ONCE A DAY, NOTES: 04/22 9PM TAKING TRAMADOL HCL 50 MG TABLET 1 TAB ORALLY Q6H PRN MDD4, NOTES: 04/22 9PM TAKING SULFASALAZINE 500 MG TABLET 1 TABLET ORALLY BID TAKING BIOTIN TAKING FERROUS SULFATE ER 142 (45 FE) MG TABLET EXTENDED RELEASE 1 TABLET ORALLY ONCE A DAY TAKING CALCIUM CITRATE 500 MG CAPSULE ORALLY BID, NOTES: 500MG BID NOT-TAKING RALOXIFENE HCL 60 MG TABLET 1 TABLET ORALLY ONCE A DAY NOT-TAKING LINZESS 290 MCG CAPSULE 1 CAPSULE ORALLY ONCE A DAY, NOTES: 04/22 9PM NOT-TAKING GABAPENTIN 300 MG CAPSULE 1 CAPSULE ORALLY Q8H TID NOT-TAKING RAMIPRIL 2.5 MG CAPSULE 1 CAPSULE ORALLY ONCE A DAY NOT-TAKING MORPHINE SULFATE ER 15 MG TABLET EXTENDED RELEASE 1 TABLET ORALLY DAILY NOT-TAKING MELOXICAM 7.5 MG TABLET 1 TABLET ORALLY BID NOT-TAKING TRIAMCINOLONE ACETONIDE 0.025 % CREAM 1 APPLICATION TO AFFECTED AREA EXTERNALLY TWICE A DAY NOT-TAKING CLOTRIMAZOLE 1 % CREAM 1 APPLICATION TO AFFECTED AREA EXTERNALLY TWICE A DAY NOT-TAKING ERGOCALCIFEROL 73498 UNIT CAPSULE 1 CAPSULE ORALLY WEEKLY NOT-TAKING CARAFATE 1 GM TABLET 1 TABLET ON AN EMPTY STOMACH ORALLY TWICE A DAY NOT-TAKING COLACE 100 MG CAPSULE 1 CAPSULE NEEDED ORALLY ONCE A DAY MEDICATION LIST REVIEWED AND RECONCILED WITH THE PATIENT PAST MEDICAL HISTORY GERD OSTEOPOROSIS HYPERLIPID CHRONIC PAIN CONSTIPATION PINCHED NERVE RESTLESS ARM SYNDROME CARPAL TUNNEL RIGHT LUPUS CABALLERO X 2 ALLERGIES GABAPENTIN: DIFFICULTY BREATHING - ALLERGY SURGICAL HISTORY CSECTION 1973 HYSTERECTOMY 1974 CHOLECYSTECTOMY 2007 LASER DISKECTOMYVAT L5-S1 2007 FAMILY HISTORY FATHER: 68 YRS, DIAGNOSED WITH HYPERTENSION, UNSPECIFIED HEART DISEASE MOTHER: , OTHER SPECIFIED CONDITIONS INFLUENCING HEALTH STATUS 1 BROTHER(S) , 5 SISTER(S) . 2 SON(S) . 1 SISTER IS - CAR ACCIDENT ONE BROTHER IS - DIABETES AND HEART ISSUES ONE SON FROM CAR ACCIDENT\NMOTHER--COPDNO KNOWN FAMILY HX OF RHEUMATIC ILLNESSES NO KNOWN UROLOGIAL ISSUES IN FAM. SOCIAL HISTORY GENERAL: TOBACCO USE ARE YOU A:CURRENT SMOKER HOW OFTEN DO YOU SMOKE CIGARETTES?EVERY DAY HOW SOON AFTER YOU WAKE UP DO YOU SMOKE YOUR FIRST CIGARETTE?31-60 MIN HOW MANY CIGARETTES A DAY DO YOU SMOKE?6-10 ARE YOU INTERESTED IN QUITTING?NOT READY TO QUIT STATES SHE HAS CUT DOWN BUT THIS IS THE ONLY ENJOYMENT SHE GETS OUT OF LIFE. SMOKING CESSATION INFORMATION GIVEN11/06/2018 LATEX QUESTIONNAIRE LATEX ALLERGY : HAVE YOU EVER DEVELOPED ANY TYPE OF REACTION AFTER HANDLING LATEX PRODUCTS SUCH RUBBER GLOVES, CONDOMS, DIAPHRAGMS, BALLOONS, SOCKS, OR UNDERWEAR?NO LATEX ALLERGY : HAVE YOU EVER DEVELOPED ANY TYPE OF REACTION DURING OR AFTER DENTAL APPOINTMENT, VAGINAL/RECTAL EXAMINATION, SURGICAL PROCEDURE, OR ANY OTHER EXPOSURE?NO DATE ASKED : 06/04/2019 LATEX RISK : HAVE YOU EVER HAD ANY DIFFICULTY BREATHING OR HIVES AFTER EATING OR HANDLING ANY FRUITS, OR VEGETABLES; SUCH KIWI, BANANAS, STONE FRUITS, OR CHESTNUTSNO LATEX RISK : DO YOU HAVE A PREVIOUS PERSONAL HISTORY OF MORE THAN NINE SURGERIES, SPINA BIFIDA, OR REPEATED CATHERIZATIONS? NO LATEX RISK : ARE YOU FREQUENTLY EXPOSED TO LATEX PRODUCTS IN YOUR OCCUPATION?NO ALCOHOL SCREENING DID YOU HAVE A DRINK CONTAINING ALCOHOL IN THE PAST YEAR?NO POINTS0 INTERPRETATIONNEGATIVE RECREATIONAL DRUG USE DRUG USE?NO CAFFEINE CAFFEINE USE?YES HOW OFTEN AND HOW MUCH? 3-4 POTS COFFEE/DAY NONDENOMINATIONAL COUPNEYK00 JAINISM NO ANABAPTISM BELIEFS THAT WOULD IMPACT HEALTH CARE. LANGUAGE LANGUAGES SPOKEN:AMHARIC LEARNING BARRIERS / SPECIAL NEEDS BARRIERS TO LEARNING?NO HEARING IMPAIRED?NO VISION IMPAIRED?YES COGNITIVELY IMPAIRED?NO :CORRECTIVE LENSES READINESS TO LEARN?YES LEARNING PREFERENCES?YES :DEMONSTRATION/VERBAL INSTRUCTION LEARNING CAPABILITIES PRESENT?YES EMOTIONAL BARRIERS?NO SPECIAL DEVICES?YES :CANE USES IT OCCASSIONALLY COREMAKER NEEDED?NO DOMESTIC VIOLENCE DO YOU FEEL SAFE IN YOUR ENVIRONMENT?YES NEW PATIENT PAIN DIARY TODAY'S VISIT 07/02/2019 PATIENT DESCRIBES PAIN :ACHING, IT COMES AND GOES FROM 0-10, WHAT LEVEL IS YOUR PAIN TODAY?4 PRECIPITATING FACTORS WORSE WITH ACTIVITY PAIN CLINIC PFS, CLERGY, PUBLIC HEALTH REFERRALS PFS REFERRAL NEEDED?NO CLERGY REFERRAL NEEDED?NO PUBLIC HEALTH REFERRAL NEEDED?NO WAS THE PROVIDER NOTIFIED OF ANY PERTINENT INFO?YES N//A HAS THE PATIENT BEEN EDUCATED REGARDING HIS/HER PLAN OF CARE?YES HAS THE PATIENT BEEN EDUCATED REGARDING PAIN, THE RISK FOR PAIN, THE IMPORTANCE OF EFFECTIVE PAIN MANAGEMENT, AND THE PAIN ASSESSMENT PROCESS?YES ADVANCE DIRECTIVE ADVANCE DIRECTIVE DISCUSSED WITH PATIENT:YES PATIENT STATES NO HCP AT THIS TIME. INFORMATION GIVEN, PATIENT DECLINED ASSISTANCE IN FILLING IT OUT AT THIS TIME. PT REPORTS SHE HAS A DNR HOSPITALIZATION/MAJOR DIAGNOSTIC PROCEDURE CSECTION AND HYSTERECTOMY [place] 2004 REVIEW OF SYSTEMS REVIEWED BY: PROVIDER: BARRY AMOR . CONSTITUTIONAL: ANY CHANGE IN YOUR MEDICAL CONDITION? NO . CHILLS NO . FEVER NO . INFECTION: DO YOU HAVE NEW INFECTIONS? NO . DO YOU HAVE HISTORY OF MRSA? NO . MUSCULOSKELETAL: ANY NEW PATTERNS OF PAIN OR NUMBNESS? NO . GASTROENTEROLOGY: ANY NEW CHANGE IN BOWEL CONTROL? NO . GENITOURINARY: ANY NEW CHANGE IN BLADDER CONTROL? NO . IS THERE A CHANCE YOU COULD BE ? NO . HEMATOLOGY/LYMPH: DO YOU TAKE ANY BLOOD THINNERS? (FOR EXAMPLE- COUMADIN, PLAVIX, AGGRENOX, PLATEL, PRADAXA, OR XARELTO) NO . WHEN WAS YOUR LAST DOSE? DATE: TIME: . NEUROLOGY: HAVE YOU FALLEN IN THE PAST 12 MONTHS? NO . ANY NEW EXTREMITY NUMBNESS OR WEAKNESS? NO . CARDIOLOGY: DO YOU HAVE A PACEMAKER OR DEFIBRILLATOR? NO . RESPIRATORY: HAVE YOU BEEN SICK IN THE PAST WEEK? NO . FEVER NO . FLU LIKE SYMPTOMS? NO . COUGH NO . INTEGUMENTARY: DO YOU HAVE ANY RASHES OR OPEN SORES? NO . ALLERGIC/IMMUNO: ARE YOU ALLERGIC TO IV DYE? NO . ANY NEW ALLERGIES? NO . PSYCHIATRIC: DO YOU HAVE THOUGHTS OF HURTING YOURSELF OR SOMEONE ELSE? NO . ARE YOU ABUSED, NEGLECTED, OR IN AN UNSAFE ENVIRONMENT? NO . ENDOCRINOLOGY: ARE YOU DIABETIC? NO . OTHER: DO YOU NEED ANY PRESCRIPTIONS? YES . IF YES, PLEASE LIST: ____TRAMADOL . ANY NEW PROBLEMS WITH YOUR MEDICATIONS? NO . WHEN DID YOU LAST EAT? ____ . WHEN DID YOU LAST DRINK? ____ . WHAT DID YOU LAST DRINK? ____ . NAME OF PERSON DRIVING YOU HOME? ____ . DO YOU HAVE ANY OTHER QUESTIONS OR CONCERNS NO . ASSESSMENTS CERVICAL DISC DISORDER WITH RADICULOPATHY OF CERVICAL REGION - M50.10 (PRIMARY) LUMBAR DISC DISPLACEMENT WITHOUT MYELOPATHY - M51.26 TREATMENT CERVICAL DISC DISORDER WITH RADICULOPATHY OF CERVICAL REGION CONTINUE TRAMADOL HCL TABLET, 50 MG, 1 TAB, ORALLY, Q6H PRN MDD4, NOTES: 04/22 9PM NOTES: ISTOP REGISTRY REVIEWED AND DEMONSTRATES COMPLLIANCE. RECENT URINE TOXICOLOGY REVIEWED. NO UNAUTHORIZED MEDICATIONS. NO ILLICIT SUBSTANCES AND PRESCRIBED MEDICATIONS WERE PRESENT. FOLLOW-UP IS SCHEDULED IN 6 WEEKS. WE'LL EVALUATE STATUS WITH PET SCAN. WE'LL CONSIDER INTERVENTIONAL THERAPY AND POSSIBLE MEDICATION CHANGES AT THAT POINT. APPROXIMATELY 11 MINUTES WAS SPENT DURING TELEPHONE CONFERENCE TODAY. OTHERS NOTES: NO VITAL SIGNS TAKEN, THIS IS A TELEPHONE/VIRTUAL VISIT. DISPOSITION & COMMUNICATION FOLLOW UP 6 WEEKS (REASON: PRE PROCEDURE/MED MGMNT) ELECTRONICALLY SIGNED BY ZULEYMA SWANSON ON 07/03/2019 AT 09:22 AM EDT DISCLAIMER : THIS IS A VISIT SUMMARY EXTRACTED FROM THE [employer] CHART. IT IS NOT A COPY OF THE [employer] PROGRESS NOTE. RIZWANA
== END ==
LOC: M PAIN 10:00
PROVIDERS: ATTEND Nurse Practitioner Family
DX: M50.10 Cervical disc disorder with radiculopathy, unspecified cervical region (principal); M51.26 Other intervertebral disc displacement, lumbar region; F17.210 Nicotine dependence, cigarettes, uncomplicated; Z79.82 Long term (current) use of aspirin; Z79.891 Long term (current) use of opiate analgesic; Z79.899 Other long term (current) drug therapy; Z88.8 Allergy status to other drugs, medicaments and biological substances

== ENCOUNTER → 2019-07-09 | Outpatient (CLI) | payer MEDICARE, MEDICAID ==
--- NOTE | 2019-07-09 15:05 | REP ---
PET/CT: HISTORY: "Other nonspecific abnormal finding of the lung field." Abnormal CT study of the chest from [facility] is reported as showing a 1.7 cm nodule in the right lower lobe. TECHNIQUE: 46 minutes following the intravenous injection of a 8.75 mCi dose of F-18 FDG, three-dimensional PET scintigraphy is acquired from the skull base to the proximal thighs. Triplanar noncontrast CT scanning is acquired through the same anatomic range for attenuation correction, and image registration with scan parameters optimized to minimize radiation exposure to the patient. PET scintigraphy and CT datasets were fused and displayed on a workstation with multiplanar and projection display capability. PET/CT FINDINGS: The thoracic kyphosis is markedly exaggerated and there are numerous osteoporotic wedge compression deformities in the thoracic and lumbar spine. No bony destructive lesion is seen. No focal hypermetabolic skeletal uptake is seen. Known right lower lobe lung nodule shows visible but non hypermetabolic category metabolic uptake. Maximum standard uptake value in the right lower lobe nodule is 2.06. It has suspicious morphology however. Malignancy must be suspected. There is no other abnormal hypermetabolic uptake in the thorax. No abnormal jong uptake is seen. In the abdomen and pelvis there is normal distribution of tracer. No abnormal adrenal, hepatic or splenic hypermetabolic uptake is seen. No abnormal jong uptake is seen in the abdomen or pelvis. There is mild arthropathy associated uptake in the region of the right hip. No other abnormal uptake is appreciated. IMPRESSION: 1. Visible but non-hypermetabolic category uptake is seen in the known suspicious right lower lobe nodule. Malignancy is not excluded. 2. No other abnormal hypermetabolic uptake is appreciated. 3. Numerous osteoporotic wedge compression deformities in the thoracolumbar spine with exaggerated thoracic kyphosis. Electronically Signed by Enio Harvey MD 07/09/2019 05:09 P
== END ==
LOC: M PLARAD 09:23
PROVIDERS: ATTEND Internal Medicine Pulmonary Disease
DX: R91.1 Solitary pulmonary nodule (principal)
CPT/HCPCS: 78815; A9552

== ENCOUNTER → 2019-07-19 | Outpatient (CLI) | payer MEDICARE, MEDICAID ==
[~2019-07-19] MED LIST changes: +CALCGRA15 PO; +MECL1TAB31 PO; +SLOW142T5 PO; +STIO1AER IN; +SULF1TAB30 PO; +TYML3120 SC; +VITAD1000T PO
== END ==
LOC: M LABSMTC 10:51
PROVIDERS: ATTEND Anesthesiology
DX: Z01.818 Encounter for other preprocedural examination (principal); Z11.59 Encounter for screening for other viral diseases

== ENCOUNTER 2019-07-22 06:01 | Day surgery (SDC) | payer MEDICARE, MEDICAID ==
[~2019-07-22] VITALS: Ht 137.2 cm; Wt 43.1 kg
[2019-07-22] MEDS ORDERED: LR 1,000 ML IV ONE (07:00)
[2019-07-22] MEDS ORDERED: LIDOCAINE 2% 100MG/5ML SDV (FOR ANES.) As Ordered ONE (07:04)
[2019-07-22] MEDS ORDERED: ROCURONIUM BROMIDE 50 MG/5 ML VIAL As Ordered ONE (07:04)
[2019-07-22] MEDS ORDERED: fentaNYL 100 MCG/2 ML INJECTION (J3010) As Ordered ONE (07:04)
[2019-07-22] MEDS ORDERED: propofoL 200 MG/20 ML VIAL As Ordered ONE (07:04)
[2019-07-22] MEDS ORDERED: MIDAZOLAM INJ 2MG/2ML VIAL (J2250 PER 1MG) As Ordered ONE (07:04)
[2019-07-22] MEDS ORDERED: dexameTHASONE 4 MG/ML 1ML VIAL (J1100 PER 1MG) As Ordered ONE (07:05)
[2019-07-22] MEDS ORDERED: ONDANSETRON 4MG/2ML VIAL As Ordered ONE (07:05)
[2019-07-22] MEDS ORDERED: CETACAINE SPRAY 5GM As Ordered ONE (07:15)
[2019-07-22] MEDS ORDERED: LIDOCAINE 1% MDV 20ML VIAL As Ordered ONE (07:15)
[2019-07-22] MEDS ORDERED: EPINEPHrine 1MG/10ML SYRINGE 1.5IN As Ordered ONE (07:15)
[2019-07-22] MEDS ORDERED: LIDOCAINE VISCOUS 2% SOLN 15ML UDC As Ordered ONE (07:16)
[2019-07-22] MEDS ORDERED: SUGAMMADEX SODIUM 500 MG/5 ML VIAL (BRIDION) As Ordered ONE (07:47)
[2019-07-22] MEDS ORDERED: PHENYLephrine HCL 500 MCG/5 ML (100MCG/ML) SYRINGE (J2370) As Ordered ONE (07:58)
[2019-07-22] MEDS ORDERED: ePHEDrine SULFATE 25 MG/5 ML(5MG/ML) SYRINGE As Ordered ONE (07:58)
[2019-07-22] MEDS ORDERED: fentaNYL 100 MCG/2 ML INJECTION (J3010) IV PRN (09:00)
[2019-07-22] MEDS ORDERED: LR 1,000 ML IV SCH (09:00)
[2019-07-22] MEDS ORDERED: ONDANSETRON 4MG/2ML VIAL IV PRN (09:00)
[2019-07-22] MEDS ORDERED: oxyCODONE 5MG TAB PO PRN (09:00)
--- NOTE | 2019-07-22 09:16 | RO ---
DATE OF PROCEDURE: 07/22/2019 PREOPERATIVE DIAGNOSIS: Right lower lobe nodule, abnormal chest CT. POSTOPERATIVE DIAGNOSIS: Right lower lobe nodule, abnormal chest CT. FINDINGS: Smokers airways, minimal banding and pitting. PROCEDURE: Navigational bronchoscopy with radial and linear ultrasound. PROCEDURIST: Dr. Felix Mei TOOL AND MACHINE MAINTAINER: None ANESTHESIA: General. Please refer to their report for details. ESTIMATED BLOOD LOSS: 0-5 mL. NO DRAINS. SPECIMENS OBTAINED: 1. Cytology needle brush of the right lower lobe. 2. Transbronchial forceps biopsies of the right lower lobe. 3. GenCut fine needle aspiration (FNA) of the right lower lobe. 4. Percepta brushes x2. MARKERS PLACED: Fiducial x2. DESCRIPTION OF PROCEDURE: After informed consent was reviewed with the patient in the preoperative area, she was brought back to [facility] which is a premapped room. Anesthesia was initiated with an 8.5 endotracheal tube and the case was handed over to me. A time out was then performed confirming correct site, correct procedure, with two patient identifiers, along with correlating the patient's name and date of with the navigational machine. After time out was performed, Cetacaine spray was used to anesthetize the area and provide lubrication. The 1T-180 bronchoscope was then introduced through the 8.5 endotracheal tube. The paty was sharp. Trachea was midline. Right and left mainstem bronchus was normal. RB 1-10 was inspected and except for minimal mucus, banding and pitting, there was no endobronchial lesions. Right bronchus intermedius (RBI) was normal. The left mainstem was then entered. LB 1-10 was then inspected without endobronchial lesion. There was some anatomic variation of the left upper lobe with the apical segment coming off with the anterior segment. After inspection was completed, navigation was initiated. Automatic registration was performed and confirmed. Target one was then easily navigated to in the right lower lobe within 1 cm of the lesion. This was confirmed with fluoroscopy. Due to the patient's severe kyphosis, this appeared higher than usual but we confirmed that we were in the right lower lobe, medial basal segment. The guide was then removed and radial ultrasound was placed showing surrounding circumferential lesion. Cytology needle brush samples were then taken. This was followed by transbronchial biopsies. After transbronchial biopsies, GenCut FNA was then obtained. After adequate sampling was obtained for cell block, the guide remained, GenCut removed. Two fiducial markers were placed. The sheath was then removed. The 1T-180 bronchoscope was then removed. Endobronchial ultrasound linear probe was then inserted. The paty was viewed and there was no significant adenopathy that was obtainable in the subcarinal area. The linear endobronchial ultrasound was then removed. The 1T-180 bronchoscope was then reinserted. All airways were suctioned. Hemostasis was assured. There are no observed complications. A postprocedure chest x-ray is pending. [facility]
--- NOTE | 2019-07-22 09:37 | REP ---
CHEST, PORTABLE: AP portable view of the chest is performed. COMPARISON: CT 06/10/2019 from [facility]. Metallic clip from bronchoscopy today is seen in the medial right lung base. There is no pneumothorax. There are bibasilar fibroatelectatic changes. Cardiac silhouette is mildly prominent. There is a large hiatal hernia. There is calcification and tortuosity of the thoracic aorta. Electronically Signed by Stefano Matthews MD 07/22/2019 12:10 P
[2019-07-22 09:52] VITALS: BP 112/61
== END 2019-07-22 10:15 | disposition home or self-care (01) ==
LOC: M SDC 06:01
PROVIDERS: ATTEND Internal Medicine Pulmonary Disease
DX: J98.4 Other disorders of lung (principal); J43.1 Panlobular emphysema; R13.10 Dysphagia, unspecified; R06.83 Snoring; K21.9 Gastro-esophageal reflux disease without esophagitis; I10 Essential (primary) hypertension; I25.10 Atherosclerotic heart disease of native coronary artery without angina pectoris; F32.9 Major depressive disorder, single episode, unspecified; I25.2 Old myocardial infarction; F17.218 Nicotine dependence, cigarettes, with other nicotine-induced disorders; Z79.899 Other long term (current) drug therapy; Z88.8 Allergy status to other drugs, medicaments and biological substances
CPT/HCPCS: 31623; 31626; 31627; 31628; 31629; 71045; 76000; 88104; 88173; 88305; A4648; J1100; J2250; J2370; J2405; J3010

== ENCOUNTER → 2019-08-06 | Outpatient (REF) | payer MEDICARE, MEDICAID ==
[2019-08-06 18:01] LABS: PLATELET COUNT, AUTOMATED 379 10^3/uL (150-450)
[2019-08-06 18:17] LABS: PROTHROMBIN TIME 12.9 SECONDS (11.8-14.0)
== END ==
LOC: M LAB REF 16:35
PROVIDERS: ATTEND Internal Medicine Pulmonary Disease
DX: R91.1 Solitary pulmonary nodule (principal); Z79.899 Other long term (current) drug therapy; Z01.818 Encounter for other preprocedural examination

== ENCOUNTER → 2019-08-13 | Outpatient (CLI) | payer MEDICARE, MEDICAID ==
[~2019-08-13] MED LIST changes: +ACET-897 PO
--- NOTE | 2019-08-15 03:46 | ECWPNPC ---
PATIENT NAME: MARY PEÑA : 1950 GENDER: FEMALE VISIT DATE: 08/13/2019 DISCHARGE DATE: 08/13/19 1002 VISIT LOCKED DATE TIME: PHYSICIAN: BARRY DUMONT RESOURCE: BARRY DUMONT REASON FOR APPOINTMENT 1. PRE PROCEDURE/MED MGMNT PAT DONE HISTORY OF PRESENT ILLNESS GENERAL: IS SEEN FOR A ROUTINE FOLLOW-UP OF CHRONIC LOW BACK PAIN WITH RIGHT LEG RADICULAR SYMPTOMS. RECENTLY DIAGNOSED WITH LUNG CANCER. SCHEDULED FOR REMOVAL OF LUNG MASS IN THE NEAR FUTURE. FINDS CURRENT CHRONIC PAIN MEDICATION SOMEWHAT EFFECTIVE AT REDUCING PAIN. DENIES ADVERSE SIDE EFFECTS.-. FALL RISK SCREENING: SCREENING :ONE FALL WITHOUT INJURY IN THE PAST YEAR CAUGHT HERSELF SHE WAS GOING DOWNN THE CELLAR STAIRS PAIN SCREENING: PATIENT HAS A COMPLAINT OF ACUTE OR CHRONIC PAIN :YES LOCATION OF PAIN:BOTH SHOULDERS, RIGHT HIP, LEG(S) RIGHT HIP DOWN RIGHT LEG TO TOES INTENSITY OF PAIN (SCALE OF 1 TO 10):6 AVERAGING 6-7 WHAT DOES YOUR PAIN FEEL LIKE:ACHING, INTERMITTENT, SHARP, TENDER, SHOOTING DURATION:MAINLY DURING THE DAY, INTERMITTENT, AWAKENS FROM SLEEP PAIN IS INCREASED BY: WALKING THE DOG, BENDING PAIN IS DECREASED BY: HEAT PLAN/GOALS/TREATMENT/INTERVENTION/FOLLOW UP:SEE PLAN NURSING NOTE: -. PAIN CENTER INTAKE QUESTIONS: DO YOU HAVE A HISTORY OF MRSA? :NO DO YOU TAKE A BLOOD THINNERS? :NO DO YOU HAVE ANY BLEEDING DISORDERS? :NO ANY NEW NUMBNESS OR WEAKNESS IN YOUR LEGS OR ARMS? :NO ANY PACEMAKER,DEFIBRILLATOR, OR DORSAL COLUMN STIMULATOR? :NO DO YOU HAVE ANY RASHES OR OPEN SORES? :NO ARE YOU ALLERGIC TO IV DYE? :NO ARE YOU DIABETIC? :NO ANY NEW PROBLEMS WITH YOUR MEDICATIONS? :YES PATIENT DOESN'T FEEL THE TRAMADOL IS HELPING HAVE YOU RECEIVED A VACCINE IN THE PAST 30 DAYS? :NO DO YOU PLAN TO RECEIVE A VACCINE IN THE NEXT 21 DAYS? :NO DO YOU NEED ANY PRESCRIPTION? :NO DO YOU TAKE ANY IMMUNOSUPPRESSIVE MEDICATIONS? :NO CURRENT MEDICATIONS TAKING CYMBALTA 60 MG CAPSULE DELAYED RELEASE PARTICLES 1 CAPSULE ORALLY ONCE A DAY TAKING METOPROLOL SUCCINATE ER 25 MG TABLET EXTENDED RELEASE 24 HOUR 1/2 TABLET ORALLY BID TAKING ASPIR-81 81 MG TABLET DELAYED RELEASE 1 TABLET ORALLY ONCE A DAY TAKING VITAMIN D 1000 UNIT TABLET 1 TABLET ORALLY BID TAKING OMEPRAZOLE 40 MG CAPSULE DELAYED RELEASE 1 CAPSULE ORALLY BID TAKING MIRALAX - POWDER 1 PACKET MIXED WITH 8 OUNCES OF FLUID ORALLY BID(HAS BEEN ONLY TAKING IT DAILY) TAKING STIOLTO RESPIMAT 2.5-2.5 MCG/ACT AEROSOL SOLUTION 2 PUFFS INHALATION ONCE A DAY TAKING COLACE 100 MG CAPSULE 1 CAPSULE NEEDED ORALLY BID TAKING MECLIZINE HCL 12.5 MG TABLET 1 TABLET ORALLY THREE TIMES DAILY NEEDED TAKING BIOTIN 1 CAP ORALLY ONCE A DAY TAKING FERROUS SULFATE ER 142 (45 FE) MG TABLET EXTENDED RELEASE 1 TABLET ORALLY ONCE A DAY TAKING CALCIUM CITRATE 500 MG CAPSULE ORALLY BID TAKING TRAZODONE HCL 100 MG TABLET 1 TABLET AT BEDTIME ORALLY ONCE A DAY TAKING TRAMADOL HCL 50 MG TABLET 1 TAB ORALLY Q6H PRN MDD4 TAKING SULFASALAZINE 500 MG TABLET 1 TABLET ORALLY BID TAKING TYMLOS 3120 MCG/1.56ML SOLUTION PEN-INJECTOR DIRECTED SUBCUTANEOUS BEFORE BEDTIME TAKING VITAMIN D 25 MCG (1000 UT) TABLET 1 TABLET ORALLY TWICE DAILY TAKING PREVAGEN 10 MG CAPSULE 1 CAP ORALLY DAILY NOT-TAKING MAY USE PILL MEDICAL MARIJUANA NOT-TAKING RALOXIFENE HCL 60 MG TABLET 1 TABLET ORALLY ONCE A DAY NOT-TAKING LINZESS 290 MCG CAPSULE 1 CAPSULE ORALLY ONCE A DAY, NOTES: 04/22 9PM NOT-TAKING GABAPENTIN 300 MG CAPSULE 1 CAPSULE ORALLY Q8H TID NOT-TAKING RAMIPRIL 2.5 MG CAPSULE 1 CAPSULE ORALLY ONCE A DAY NOT-TAKING MORPHINE SULFATE ER 15 MG TABLET EXTENDED RELEASE 1 TABLET ORALLY DAILY NOT-TAKING MELOXICAM 7.5 MG TABLET 1 TABLET ORALLY BID NOT-TAKING TRIAMCINOLONE ACETONIDE 0.025 % CREAM 1 APPLICATION TO AFFECTED AREA EXTERNALLY TWICE A DAY NOT-TAKING CLOTRIMAZOLE 1 % CREAM 1 APPLICATION TO AFFECTED AREA EXTERNALLY TWICE A DAY NOT-TAKING ERGOCALCIFEROL 30583 UNIT CAPSULE 1 CAPSULE ORALLY WEEKLY NOT-TAKING CARAFATE 1 GM TABLET 1 TABLET ON AN EMPTY STOMACH ORALLY TWICE A DAY DISCONTINUED COLACE 100 MG CAPSULE 1 CAPSULE NEEDED ORALLY ONCE A DAY, NOTES: DUPLICATE MEDICATION LIST REVIEWED AND RECONCILED WITH THE PATIENT PAST MEDICAL HISTORY GERD OSTEOPOROSIS HYPERLIPID CHRONIC PAIN CONSTIPATION PINCHED NERVE RESTLESS ARM SYNDROME CARPAL TUNNEL RIGHT LUPUS CABALLERO X 2 RIGHT LUNG CA RA(DR. SMITH) [place] X2 () ALLERGIES GABAPENTIN: DIFFICULTY BREATHING - ALLERGY SURGICAL HISTORY CSECTION 1974 HYSTERECTOMY 1975 CHOLECYSTECTOMY 2007 LASER DISKECTOMYVAT L5-S1 2007 FAMILY HISTORY FATHER: 68 YRS, DIAGNOSED WITH HYPERTENSION, UNSPECIFIED HEART DISEASE MOTHER: , OTHER SPECIFIED CONDITIONS INFLUENCING HEALTH STATUS 1 BROTHER(S) , 5 SISTER(S) . 2 SON(S) . 1 SISTER IS - CAR ACCIDENT ONE BROTHER IS - DIABETES AND HEART ISSUES ONE SON FROM CAR ACCIDENT\NMOTHER--COPDNO KNOWN FAMILY HX OF RHEUMATIC ILLNESSES NO KNOWN UROLOGIAL ISSUES IN FAM. SOCIAL HISTORY GENERAL: TOBACCO USE ARE YOU A:CURRENT SMOKER ARE YOU INTERESTED IN QUITTING?NOT READY TO QUIT STATES SHE HAS CUT DOWN BUT THIS IS THE ONLY ENJOYMENT SHE GETS OUT OF LIFE. HOW MANY CIGARETTES A DAY DO YOU SMOKE?6-10 HOW SOON AFTER YOU WAKE UP DO YOU SMOKE YOUR FIRST CIGARETTE?31-60 MIN HOW OFTEN DO YOU SMOKE CIGARETTES?EVERY DAY PATIENT COUNSELED ON THE DANGERS OF TOBACCO USE AND URGED TO QUIT:08/12/2019 SMOKING CESSATION INFORMATION GIVEN11/06/2018 LATEX QUESTIONNAIRE LATEX ALLERGY : HAVE YOU EVER DEVELOPED ANY TYPE OF REACTION AFTER HANDLING LATEX PRODUCTS SUCH RUBBER GLOVES, CONDOMS, DIAPHRAGMS, BALLOONS, SOCKS, OR UNDERWEAR?NO LATEX ALLERGY : HAVE YOU EVER DEVELOPED ANY TYPE OF REACTION DURING OR AFTER DENTAL APPOINTMENT, VAGINAL/RECTAL EXAMINATION, SURGICAL PROCEDURE, OR ANY OTHER EXPOSURE?NO LATEX RISK : HAVE YOU EVER HAD ANY DIFFICULTY BREATHING OR HIVES AFTER EATING OR HANDLING ANY FRUITS, OR VEGETABLES; SUCH KIWI, BANANAS, STONE FRUITS, OR CHESTNUTSNO LATEX RISK : DO YOU HAVE A PREVIOUS PERSONAL HISTORY OF MORE THAN NINE SURGERIES, SPINA BIFIDA, OR REPEATED CATHERIZATIONS? NO LATEX RISK : ARE YOU FREQUENTLY EXPOSED TO LATEX PRODUCTS IN YOUR OCCUPATION?NO DATE ASKED : 08/12/2019 ALCOHOL SCREENING DID YOU HAVE A DRINK CONTAINING ALCOHOL IN THE PAST YEAR?NO POINTS0 INTERPRETATIONNEGATIVE RECREATIONAL DRUG USE DRUG USE?NO CAFFEINE CAFFEINE USE?YES HOW OFTEN AND HOW MUCH? 3-4 POTS COFFEE/DAY GNOSTICIST [id number] ZOROASTRIANISM NO YARSANI BELIEFS THAT WOULD IMPACT HEALTH CARE. LANGUAGE LANGUAGES SPOKEN:MONGOLIAN LEARNING BARRIERS / SPECIAL NEEDS BARRIERS TO LEARNING?YES COMMENTS HAS PROBLEMS WITH REMEMBERING HEARING IMPAIRED?NO VISION IMPAIRED?YES :CORRECTIVE LENSES COGNITIVELY IMPAIRED?NO READINESS TO LEARN?YES LEARNING PREFERENCES?YES :DEMONSTRATION/VERBAL INSTRUCTION LEARNING CAPABILITIES PRESENT?YES EMOTIONAL BARRIERS?NO SPECIAL DEVICES?YES :CANE USES IT OCCASSIONALLY SECURITY POLICE NEEDED?NO DOMESTIC VIOLENCE DO YOU FEEL SAFE IN YOUR ENVIRONMENT?YES PAIN CLINIC PFS, CLERGY, PUBLIC HEALTH REFERRALS PFS REFERRAL NEEDED?NO CLERGY REFERRAL NEEDED?NO PUBLIC HEALTH REFERRAL NEEDED?NO WAS THE PROVIDER NOTIFIED OF ANY PERTINENT INFO?YES N//A HAS THE PATIENT BEEN EDUCATED REGARDING HIS/HER PLAN OF CARE?YES HAS THE PATIENT BEEN EDUCATED REGARDING PAIN, THE RISK FOR PAIN, THE IMPORTANCE OF EFFECTIVE PAIN MANAGEMENT, AND THE PAIN ASSESSMENT PROCESS?YES ADVANCE DIRECTIVE ADVANCE DIRECTIVE DISCUSSED WITH PATIENT:YES PATIENT STATES NO HCP AT THIS TIME. INFORMATION GIVEN, PATIENT DECLINED ASSISTANCE IN FILLING IT OUT AT THIS TIME. PT REPORTS SHE HAS A DNR HOSPITALIZATION/MAJOR DIAGNOSTIC PROCEDURE CSECTION AND HYSTERECTOMY [place] 2004 REVIEW OF SYSTEMS CONSTITUTIONAL: ANY RECENT FEVER OR ILLNESS NO . CHILLS NO . GASTROENTEROLOGY: BOWEL INCONTINENCE NO . ANY NEW CHANGE IN BOWEL CONTROL? NO . ABDOMINAL PAIN NO . CONSTIPATION NO . GENITOURINARY: ANY NEW CHANGE IN BLADDER CONTROL? NO . IS THERE A CHANCE YOU COULD BE ? NO . URINARY INCONTINENCE NO . CARDIOLOGY: CHEST PRESSURE NO . CHEST PAIN NO . RESPIRATORY: COUGH NO . SHORTNESS OF BREATH NO . VITAL SIGNS WT 95.2 LBS, HT 56 IN, BMI 21.34 INDEX, BP 180/77 MM HG, HR 84 /MIN, RR 18 /MIN, TEMP 98.1 F, OXYGEN SAT % 95%, NA INITIALS AW 0905. EXAMINATION GENERAL EXAMINATION: GENERALAWAKE,ALERT ,PLEASANT . PSYCHAFFECT NORMAL . LUNGS:LUNG STEWARD ARE CLEAR TO AUSCULTATION BILATERALLY. GOOD MOVEMENT OF AIR . HEART:S1, S2 IN A REGULAR RATE AND RHYTHM. NO SIGNIFICANT MURMURS, RUBS OR GALLOPS NOTED . ASSESSMENTS CERVICAL DISC DISORDER WITH RADICULOPATHY OF CERVICAL REGION - M50.10 (PRIMARY) LUMBAR DISC DISPLACEMENT WITHOUT MYELOPATHY - M51.26 ARTHROPATHY - M12.9 TREATMENT CERVICAL DISC DISORDER WITH RADICULOPATHY OF CERVICAL REGION CONTINUE TRAZODONE HCL TABLET, 100 MG, 1 TABLET AT BEDTIME, ORALLY, ONCE A DAY CONTINUE TRAMADOL HCL TABLET, 50 MG, 1 TAB, ORALLY, Q6H PRN MDD4 NOTES: TODAY WE DISCUSSED TREATMENT OPTIONS. I'M RECOMMENDING THAT WE HOLD OFF ON ANY MEDICATION CHANGES OR INJECTION THERAPY UNTIL HER MEDICAL CONDITION STABILIZES. PROCEDURE CODES FA211 ESTABILISHED PATIENT [facility] CHARGE DISPOSITION & COMMUNICATION FOLLOW UP 2 MONTHS (REASON: MED MANAGEMENT, ARTHROPATHY) ELECTRONICALLY SIGNED BY ZULEYMA SWANSON ON 08/14/2019 AT 02:31 PM EDT DISCLAIMER : THIS IS A VISIT SUMMARY EXTRACTED FROM THE [employer] CHART. IT IS NOT A COPY OF THE [employer] PROGRESS NOTE. RIZWANA
== END ==
LOC: M PAIN 09:15
PROVIDERS: ATTEND Nurse Practitioner Family
DX: M50.10 Cervical disc disorder with radiculopathy, unspecified cervical region (principal); M51.26 Other intervertebral disc displacement, lumbar region; M12.9 Arthropathy, unspecified; F17.210 Nicotine dependence, cigarettes, uncomplicated; Z79.82 Long term (current) use of aspirin; Z79.891 Long term (current) use of opiate analgesic; Z79.899 Other long term (current) drug therapy; Z88.8 Allergy status to other drugs, medicaments and biological substances

== ENCOUNTER → 2019-08-27 | Outpatient (CLI) | payer MEDICARE, MEDICAID ==
[~2019-08-27] MED LIST changes: +LIDOCAINE 1% MDV 20ML VIAL As Ordered ONE; +LINZ290C PO; -STIO1AER IN; +STIO1AER INH
--- NOTE | 2019-08-27 10:47 | REP ---
CHEST X-RAY: Single AP view. HISTORY: Post biopsy chest x-ray. Right lung nodule. FINDINGS: The thoracic aorta is quite tortuous and the patient is kyphotic as before. There is no visible pneumothorax. There is a fiducial marker projecting in the right infrahilar region. Mildly prominent heart. IMPRESSION: No complication seen. Electronically Signed by Enio Harvey MD 08/27/2019 12:22 P
[2019-08-27 11:38] VITALS: BP 104/60
--- NOTE | 2019-08-27 11:49 | REP ---
CHEST X-RAY: PA view. 11:41 a.m. film. HISTORY: Followup post lung biopsy. Comparison study is from 10:03 a.m. FINDINGS: There is no discernible pneumothorax. A [id number] hiatal hernia is seen. The thoracic aorta is tortuous. No evidence of hemorrhage or infiltrate. IMPRESSION: No complication seen. Electronically Signed by Enio Harvey MD 08/27/2019 12:30 P
--- NOTE | 2019-08-28 08:15 | REP ---
CT-GUIDED RIGHT LOWER LOBE LUNG BIOPSY The procedure was performed under the direct supervision of Dr. Harvey. The patient has a history of a 1.7 cm stellate shaped nodular lesion in the right lower lobe seen on a previous CT scan from [facility] performed on 06/10/2019. The risks and benefits of the procedure were explained to the patient and informed consent was obtained. The right lower lobe lung nodule was localized using CT guidance. The skin was prepped and draped in a sterile fashion. 1% lidocaine was used as a local anesthetic. Using CT guidance a 19/20 gauge coaxial needle biopsy system was inserted and advanced into the nodule. Six core biopsy samples were obtained and sent to lab. The patient tolerated the procedure well and there were no immediate complications. After the appropriate amount of monitored convalescence the patient was discharged from the department. Electronically Signed by EVY Calderon 08/27/2019 02:37 P Electronically Signed by Enio Harvey MD 08/28/2019 08:06 A
== END ==
LOC: M IRPRO 07:53
PROVIDERS: ATTEND Internal Medicine Pulmonary Disease
DX: R84.6 Abnormal cytological findings in specimens from respiratory organs and thorax (principal); K44.9 Diaphragmatic hernia without obstruction or gangrene

== ENCOUNTER → 2019-10-14 | Outpatient (POV) | payer MEDICARE, MEDICAID ==
[~2019-10-14] MED LIST changes: -ASPI81TA85 PO; +ASPI81TA86 PO; +D31000TA2 PO; -LIDOCAINE 1% MDV 20ML VIAL As Ordered ONE; +PANT40TA29 PO; -PANT40TA3 PO; -VITAD1000T PO
== END ==
LOC: M PAIN 09:00
PROVIDERS: ATTEND Nurse Practitioner Family
DX: M54.5 Low back pain (principal); Z79.891 Long term (current) use of opiate analgesic

== ENCOUNTER → 2019-11-19 | Outpatient (CLI) | payer MEDICARE, MEDICAID | LOC: M PAIN 11:24 | PROVIDERS: ATTEND Nurse Practitioner Family | DX: M79.18 Myalgia, other site (principal) ==

== ENCOUNTER → 2019-12-01 | Outpatient (CLI) | payer MEDICARE, MEDICAID | LOC: M LABSMTC 08:36 | PROVIDERS: ATTEND Anesthesiology | DX: Z20.828 Contact with and (suspected) exposure to other viral communicable diseases (principal) | CPT/HCPCS: C9803; U0003 ==

== ENCOUNTER → 2019-12-06 | Outpatient (CLI) | payer MEDICARE, MEDICAID ==
[~2019-12-06] MED LIST changes: +BUPIVACAINE HCL 0.25% 10ML VIAL As Ordered ONE; +BUPIVACAINE HCL 0.25% 30ML VIAL As Ordered ONE; +TRIAMCINOLONE ACETONIDE SUSP 40 MG/ML VIAL (J3301) As Ordered ONE
== END ==
LOC: M PAIN 08:21
PROVIDERS: ATTEND Anesthesiology
DX: M79.18 Myalgia, other site (principal)
CPT/HCPCS: 20552; G0463; J3301

== ENCOUNTER → 2019-12-19 | Outpatient (CLI) | payer MEDICARE, MEDICAID ==
[~2019-12-19] MED LIST changes: -BUPIVACAINE HCL 0.25% 10ML VIAL As Ordered ONE; -BUPIVACAINE HCL 0.25% 30ML VIAL As Ordered ONE; -TRIAMCINOLONE ACETONIDE SUSP 40 MG/ML VIAL (J3301) As Ordered ONE
--- NOTE | 2019-12-24 14:50 | ECWPNPC ---
PATIENT NAME: MARY PEÑA : 1950 GENDER: FEMALE VISIT DATE: 12/19/2019 DISCHARGE DATE: 12/19/19 1417 VISIT LOCKED DATE TIME: PHYSICIAN: BARRY DUMONT RESOURCE: BARRY DUMONT REASON FOR APPOINTMENT 1. TPI NECK/UPPER BACK HISTORY OF PRESENT ILLNESS GENERAL: HERE FOR F/U OF CHRONIC RIGHT SIDED NECK AND BACK PAIN.HAD TPI ON 12/06/2019 AND IS DOING WELL POST PROCEDURE.TAKING LESS PAIN MEDICATION AND IS FINDING IT EASIER TO TOLERATE ADL'S. -. FALL RISK SCREENING: SCREENING :TWO OR MORE FALLS WITHOUT INJURY IN THE PAST YEAR PAIN SCREENING: PATIENT HAS A COMPLAINT OF ACUTE OR CHRONIC PAIN :YES LOCATION OF PAIN:NECK, UPPER BACK INTENSITY OF PAIN (SCALE OF 1 TO 10):0 PATIENT STATES LITTLE TO NO PAIN SINCE HER TRIGGER POINT INJECTIONS TWO WEEKS AGO WHAT DOES YOUR PAIN FEEL LIKE:THROBBING DURATION:INTERMITTENT PAIN IS INCREASED BY:ACTIVITIES PAIN IS DECREASED BY:USE OF PAIN MEDICATIONS, OTHERS INJECTIONS NURSING NOTE: -. PAIN CENTER INTAKE QUESTIONS: DO YOU HAVE A HISTORY OF MRSA? :NO DO YOU TAKE A BLOOD THINNERS? :NO DO YOU HAVE ANY BLEEDING DISORDERS? :NO ANY NEW NUMBNESS OR WEAKNESS IN YOUR LEGS OR ARMS? :NO ANY PACEMAKER,DEFIBRILLATOR, OR DORSAL COLUMN STIMULATOR? :NO DO YOU HAVE ANY RASHES OR OPEN SORES? :NO ARE YOU ALLERGIC TO IV DYE? :NO ARE YOU DIABETIC? :NO ANY NEW PROBLEMS WITH YOUR MEDICATIONS? :NO HAVE YOU RECEIVED A VACCINE IN THE PAST 30 DAYS? :NO DO YOU PLAN TO RECEIVE A VACCINE IN THE NEXT 21 DAYS? :YES IF SO WHAT VACCINE AND WHEN? WOULD LIKE TO GET FLU AND SHINGLES VACCINES DO YOU NEED ANY PRESCRIPTION? :YES TRAZADONE DO YOU TAKE ANY IMMUNOSUPPRESSIVE MEDICATIONS? :NO IS THERE A CHANCE YOU COULD BE ? :NO ARE YOU BREAST FEEDING? :NO CURRENT MEDICATIONS TAKING CYMBALTA 60 MG CAPSULE DELAYED RELEASE PARTICLES 1 CAPSULE ORALLY ONCE A DAY TAKING METOPROLOL SUCCINATE ER 25 MG TABLET EXTENDED RELEASE 24 HOUR 1/2 TABLET ORALLY BID TAKING ASPIR-81 81 MG TABLET DELAYED RELEASE 1 TABLET ORALLY ONCE A DAY TAKING VITAMIN D 1000 UNIT TABLET 1 TABLET ORALLY BID TAKING OMEPRAZOLE 40 MG CAPSULE DELAYED RELEASE 1 CAPSULE ORALLY BID TAKING MIRALAX - POWDER 1 PACKET MIXED WITH 8 OUNCES OF FLUID ORALLY BID(HAS BEEN ONLY TAKING IT DAILY) TAKING STIOLTO RESPIMAT 2.5-2.5 MCG/ACT AEROSOL SOLUTION 2 PUFFS INHALATION ONCE A DAY TAKING COLACE 100 MG CAPSULE 1 CAPSULE NEEDED ORALLY BID TAKING MECLIZINE HCL 12.5 MG TABLET 1 TABLET ORALLY THREE TIMES DAILY NEEDED TAKING BIOTIN 1 CAP ORALLY ONCE A DAY TAKING FERROUS SULFATE ER 142 (45 FE) MG TABLET EXTENDED RELEASE 1 TABLET ORALLY ONCE A DAY TAKING CALCIUM CITRATE 500 MG CAPSULE ORALLY BID TAKING SULFASALAZINE 500 MG TABLET 1 TABLET ORALLY BID TAKING PREVAGEN 10 MG CAPSULE 1 CAP ORALLY DAILY TAKING TRAZODONE HCL 100 MG TABLET 1 TABLET AT BEDTIME ORALLY ONCE A DAY TAKING TRAMADOL HCL 50 MG TABLET 1 TAB ORALLY Q6H PRN MDD4 NOT-TAKING TYMLOS 3120 MCG/1.56ML SOLUTION PEN-INJECTOR DIRECTED SUBCUTANEOUS BEFORE BEDTIME NOT-TAKING VITAMIN D 25 MCG (1000 UT) TABLET 1 TABLET ORALLY TWICE DAILY NOT-TAKING MAY USE PILL MEDICAL MARIJUANA NOT-TAKING RALOXIFENE HCL 60 MG TABLET 1 TABLET ORALLY ONCE A DAY NOT-TAKING LINZESS 290 MCG CAPSULE 1 CAPSULE ORALLY ONCE A DAY, NOTES: 04/22 9PM NOT-TAKING GABAPENTIN 300 MG CAPSULE 1 CAPSULE ORALLY Q8H TID NOT-TAKING RAMIPRIL 2.5 MG CAPSULE 1 CAPSULE ORALLY ONCE A DAY NOT-TAKING MORPHINE SULFATE ER 15 MG TABLET EXTENDED RELEASE 1 TABLET ORALLY DAILY NOT-TAKING MELOXICAM 7.5 MG TABLET 1 TABLET ORALLY BID NOT-TAKING TRIAMCINOLONE ACETONIDE 0.025 % CREAM 1 APPLICATION TO AFFECTED AREA EXTERNALLY TWICE A DAY NOT-TAKING CLOTRIMAZOLE 1 % CREAM 1 APPLICATION TO AFFECTED AREA EXTERNALLY TWICE A DAY NOT-TAKING ERGOCALCIFEROL 52668 UNIT CAPSULE 1 CAPSULE ORALLY WEEKLY NOT-TAKING CARAFATE 1 GM TABLET 1 TABLET ON AN EMPTY STOMACH ORALLY TWICE A DAY MEDICATION LIST REVIEWED AND RECONCILED WITH THE PATIENT PAST MEDICAL HISTORY GERD OSTEOPOROSIS HYPERLIPID CHRONIC PAIN CONSTIPATION PINCHED NERVE RESTLESS ARM SYNDROME CARPAL TUNNEL RIGHT LUPUS CABALLERO X 2 RIGHT LUNG CA RA(DR. SMITH) MD X2 () ALLERGIES GABAPENTIN: DIFFICULTY BREATHING - ALLERGY SURGICAL HISTORY CSECTION 1974 HYSTERECTOMY 1974 CHOLECYSTECTOMY 2007 LASER DISKECTOMYVAT L5-S1 2007 FAMILY HISTORY FATHER: 68 YRS, DIAGNOSED WITH HYPERTENSION, UNSPECIFIED HEART DISEASE MOTHER: , OTHER SPECIFIED CONDITIONS INFLUENCING HEALTH STATUS 1 BROTHER(S) , 5 SISTER(S) . 2 SON(S) . 1 SISTER IS - CAR ACCIDENT ONE BROTHER IS - DIABETES AND HEART ISSUES ONE SON FROM CAR ACCIDENT\NMOTHER--COPDNO KNOWN FAMILY HX OF RHEUMATIC ILLNESSES NO KNOWN UROLOGIAL ISSUES IN FAM. SOCIAL HISTORY GENERAL: TOBACCO USE ARE YOU A:CURRENT SMOKER ARE YOU INTERESTED IN QUITTING?NOT READY TO QUIT STATES SHE HAS CUT DOWN BUT THIS IS THE ONLY ENJOYMENT SHE GETS OUT OF LIFE. HOW MANY CIGARETTES A DAY DO YOU SMOKE?11-20 HOW SOON AFTER YOU WAKE UP DO YOU SMOKE YOUR FIRST CIGARETTE?31-60 MIN HOW OFTEN DO YOU SMOKE CIGARETTES?EVERY DAY PATIENT COUNSELED ON THE DANGERS OF TOBACCO USE AND URGED TO QUIT:12/19/2019 SMOKING CESSATION INFORMATION GIVEN11/06/2018 LATEX QUESTIONNAIRE LATEX ALLERGY : HAVE YOU EVER DEVELOPED ANY TYPE OF REACTION AFTER HANDLING LATEX PRODUCTS SUCH RUBBER GLOVES, CONDOMS, DIAPHRAGMS, BALLOONS, SOCKS, OR UNDERWEAR?NO LATEX ALLERGY : HAVE YOU EVER DEVELOPED ANY TYPE OF REACTION DURING OR AFTER DENTAL APPOINTMENT, VAGINAL/RECTAL EXAMINATION, SURGICAL PROCEDURE, OR ANY OTHER EXPOSURE?NO LATEX RISK : HAVE YOU EVER HAD ANY DIFFICULTY BREATHING OR HIVES AFTER EATING OR HANDLING ANY FRUITS, OR VEGETABLES; SUCH KIWI, BANANAS, STONE FRUITS, OR CHESTNUTSNO LATEX RISK : DO YOU HAVE A PREVIOUS PERSONAL HISTORY OF MORE THAN NINE SURGERIES, SPINA BIFIDA, OR REPEATED CATHERIZATIONS? NO LATEX RISK : ARE YOU FREQUENTLY EXPOSED TO LATEX PRODUCTS IN YOUR OCCUPATION?NO DATE ASKED : 12/19/2019 ALCOHOL SCREENING DID YOU HAVE A DRINK CONTAINING ALCOHOL IN THE PAST YEAR?NO POINTS0 INTERPRETATIONNEGATIVE RECREATIONAL DRUG USE DRUG USE?NO CAFFEINE CAFFEINE USE?YES HOW OFTEN AND HOW MUCH? 3-4 POTS COFFEE/DAY ADVENTISM [id number] CONFUCIANISM NO ZOROASTRIANISM BELIEFS THAT WOULD IMPACT HEALTH CARE. LANGUAGE LANGUAGES SPOKEN:ANGOLAN LEARNING BARRIERS / SPECIAL NEEDS CHANGE FROM LAST VISIT?NO BARRIERS TO LEARNING?YES COMMENTS HAS PROBLEMS WITH REMEMBERING HEARING IMPAIRED?NO VISION IMPAIRED?YES :CORRECTIVE LENSES COGNITIVELY IMPAIRED?NO READINESS TO LEARN?YES LEARNING PREFERENCES?YES :DEMONSTRATION/VERBAL INSTRUCTION LEARNING CAPABILITIES PRESENT?YES EMOTIONAL BARRIERS?NO SPECIAL DEVICES?YES :CANE USES IT OCCASSIONALLY HARNESS REPAIRER NEEDED?NO DOMESTIC VIOLENCE DO YOU FEEL SAFE IN YOUR ENVIRONMENT?YES PAIN CLINIC PFS, CLERGY, PUBLIC HEALTH REFERRALS PFS REFERRAL NEEDED?NO CLERGY REFERRAL NEEDED?NO PUBLIC HEALTH REFERRAL NEEDED?NO WAS THE PROVIDER NOTIFIED OF ANY PERTINENT INFO?YES N//A HAS THE PATIENT BEEN EDUCATED REGARDING HIS/HER PLAN OF CARE?YES HAS THE PATIENT BEEN EDUCATED REGARDING PAIN, THE RISK FOR PAIN, THE IMPORTANCE OF EFFECTIVE PAIN MANAGEMENT, AND THE PAIN ASSESSMENT PROCESS?YES ADVANCE DIRECTIVE ADVANCE DIRECTIVE DISCUSSED WITH PATIENT:YES HCP - MARY LAWSON (FRIEND) . PT REPORTS SHE HAS A DNR. HOSPITALIZATION/MAJOR DIAGNOSTIC PROCEDURE CSECTION AND HYSTERECTOMY MD 2004 REVIEW OF SYSTEMS CONSTITUTIONAL: ANY RECENT FEVER NO . CHILLS NO . GASTROENTEROLOGY: BOWEL INCONTINENCE NO . ANY NEW CHANGE IN BOWEL CONTROL? NO . HISTORY OF UNUSUAL ABDOMINAL PAIN OR CRAMPING NOT MENTIONED NO . CONSTIPATION NO . GENITOURINARY: ANY NEW CHANGE IN BLADDER CONTROL? NO . IS THERE A CHANCE YOU COULD BE ? NO . URINARY INCONTINENCE NO . CARDIOLOGY: NEW CHEST PRESSURE NO . HISTORY OF CHEST PAIN,IRREGULAR HEART BEAT NOT MENTIONED NO . RESPIRATORY: COUGH NO . SHORTNESS OF BREATH NO . VITAL SIGNS WT 96.4 LBS, HT 56 IN, BMI 21.61 INDEX, BP 134/62 MM HG, HR 82 /MIN, RR 18 /MIN, TEMP 97.0 F, OXYGEN SAT % 93%, SAFE IN ENV? (Y/N) YES, NA INITIALS AW 1345, REVIEWED BY: KENYON. EXAMINATION GENERAL EXAMINATION: GENERALAWAKE,ALERT ,PLEASANT . PSYCHAFFECT NORMAL . LUNGS:LUNG STEWARD ARE CLEAR TO AUSCULTATION BILATERALLY. GOOD MOVEMENT OF AIR . HEART:S1, S2 IN A REGULAR RATE AND RHYTHM. NO SIGNIFICANT MURMURS, RUBS OR GALLOPS NOTED . ASSESSMENTS MYALGIA OF MUSCLE OF NECK - M79.18 (PRIMARY) TREATMENT MYALGIA OF MUSCLE OF NECK REFILL TRAZODONE HCL TABLET, 100 MG, 1 TABLET AT BEDTIME, ORALLY, ONCE A DAY, 30 DAYS, 30 TABLET, REFILLS 5 CONTINUE TRAMADOL HCL TABLET, 50 MG, 1 TAB, ORALLY, Q6H PRN MDD4 NOTES: ISTOP REGISTRY REVIEWED AND DEMONSTRATES COMPLLIANCE. (REF # ) BRINGS IN MEDICATIONS WHICH IS APPROPRIATE FOR WHAT WAS DISPENSED. RECENT URINE TOXICOLOGY REVIEWED. NO UNAUTHORIZED MEDICATIONS. NO ILLICIT SUBSTANCES AND PRESCRIBED MEDICATIONS WERE PRESENT. , RISKS OF NARCOTIC/OPIOD MEDICATIONS INCLUDES BUT IS NOT LIMITED TO RISK OF DEPENDANCE/DEVELOPMENT OF ADDICTION, MOOD DISTURBANCE AND DEPRESSION, OSTEOPOROSIS, HORMONAL AND LABIDAL CHANGES, RESPIRATORY DEPRESSION AND . PATIENT IS ADVISED NOT TO DRIVE OR DRINK ALCOHOL WHILE ON THESE MEDICATIONS. PROCEDURE CODES FA211 ESTABILISHED PATIENT [facility] FAC[facility] CHARGE DISPOSITION & COMMUNICATION FOLLOW UP 3 MONTHS (REASON: MED MGMNT/UTOX) ELECTRONICALLY SIGNED BY ZULEYMA SWANSON ON 12/24/2019 AT 02:00 PM EDT DISCLAIMER : THIS IS A VISIT SUMMARY EXTRACTED FROM THE [employer] CHART. IT IS NOT A COPY OF THE [employer] PROGRESS NOTE. RIZWANA
== END ==
LOC: M PAIN 13:45
PROVIDERS: ATTEND Nurse Practitioner Family
DX: M79.18 Myalgia, other site (principal); K21.9 Gastro-esophageal reflux disease without esophagitis; E78.5 Hyperlipidemia, unspecified; I25.2 Old myocardial infarction; F17.210 Nicotine dependence, cigarettes, uncomplicated; Z88.8 Allergy status to other drugs, medicaments and biological substances; Z79.82 Long term (current) use of aspirin; Z79.891 Long term (current) use of opiate analgesic; Z79.899 Other long term (current) drug therapy

== ENCOUNTER 2020-01-21 15:39 | Outpatient (CLI) | payer MEDICARE, MEDICAID ==
[~2020-01-21] VITALS: Ht 137.2 cm; Wt 42.6 kg
[~2020-01-21 15:39] MED LIST changes: +ZOLEDRONIC ACID 5 MG in IV 1 EA IV ONE
[2020-01-21 15:40] VITALS: BP 155/71
[2020-01-21 17:10] VITALS: BP 131/73
== END 2020-01-21 17:10 | disposition home or self-care (01) ==
LOC: M INFU 15:39
PROVIDERS: ATTEND Internal Medicine Endocrinology, Diabetes & Metabolism
DX: M81.0 Age-related osteoporosis without current pathological fracture (principal); Z88.8 Allergy status to other drugs, medicaments and biological substances
CPT/HCPCS: 96365; J3489

== ENCOUNTER → 2020-01-22 | Outpatient (CLI) | payer MEDICARE, MEDICAID ==
[~2020-01-22] MED LIST changes: -ZOLEDRONIC ACID 5 MG in IV 1 EA IV ONE
--- NOTE | 2020-01-22 14:03 | REP ---
INDICATION: RT LUNG CA S/P SBRT RESTAGING EVAL. COMPARISON: CT chest 06/10/2019, post biopsy chest 08/27/2019. TECHNIQUE: Standard noncontrast images with coronal and sagittal reconstructions provided. FINDINGS: There is advanced kyphotic change in the spine with most thoracic vertebral bodies demonstrating convex compression deformities and unchanged from the May study. The right lower lobe abutting the paraspinal pleura is a as irregular shaped nodule the 13.5 x 9.8 by 10.8 mm. The May study it measured 18.5 x 10.5 by 17.5 mm in the same dimensions. I do not see other new nodules or masses. There is no pleural effusion. There is some curvilinear fibrotic change in anterior left base small of zone of scarring in the left apex. No pleural effusion, pleural based mass or calcified pleural plaque identified. Moderate-size incarcerated hiatal hernia without change. Left atrial and ventricular enlargement seen with mild cardiomegaly, unchanged and with mild pericardial thickening or fluid stable. The aorta has calcifications without aneurysm. There is no pathologic sized mediastinal or hilar adenopathy. Bones are demineralized without visible fractures of the ribs. Sternum, manubrium, clavicles, scapulae and visualized portions of the humeral heads grossly intact. Upper abdomen shows nonobstructing upper pole stone in the left kidney versus a vascular calcification or other hilar vascular calcifications in the kidneys. No hydronephrosis a cyst or solid mass evident. No adrenal lesion. Small bowel loops and colon grossly intact. Liver and spleen included were unremarkable IMPRESSION: : 1. Slightly smaller of the right lower lobe irregular nodule paraspinal region as seen on the previous studies with detailed measurements changes as described. 2. No gross evidence for mediastinal, hilar or other adenopathy. 3. Advanced kyphosis and demineralization of the spine with multiple convex depression fractures throughout the thoracic vertebral bodies, unchanged. No other bony findings of significance. 4. There is no effusion, new nodules or masses, acute infiltrates or other findings <Electronically signed by Temo Hartmann > 01/22/20 5105
== END ==
LOC: M RAD 12:12
PROVIDERS: ATTEND Radiology Radiation Oncology
DX: C34.31 Malignant neoplasm of lower lobe, right bronchus or lung (principal); M40.209 Unspecified kyphosis, site unspecified; M84.48XD Pathological fracture, other site, subsequent encounter for fracture with routine healing

== ENCOUNTER → 2020-02-17 | Outpatient (REF) | payer MEDICARE, MEDICAID ==
[2020-02-17 17:10] LABS: BASO % 0.3 % (0.0-1.0); EOS # 0.3 10^3/uL (0.0-0.5); EOS % 5.2 % (0.0-3.0); HEMATOCRIT 43.1 % (36.0-47.0); HEMOGLOBIN 14.2 g/dl (12.0-15.5); LYMPH # 1.8 10^3/uL (1.5-5.0); LYMPH % 30.2 % (24.0-44.0); MEAN CORPUSCULAR HGB CONC 32.9 g/dl (32.0-36.5); MEAN CORPUSCULAR VOLUME 100.2 fl (80.0-96.0); MONO # 0.6 10^3/uL (0.0-0.8); MONO % 11.1 % (0.0-5.0); NEUTROPHILS # 3.1 10^3/uL (1.5-8.5); NEUTROPHILS % 52.9 % (36.0-66.0); PLATELET COUNT, AUTOMATED 381 10^3/uL (150-450); WHITE BLOOD COUNT 5.8 10^3/uL (4.0-10.0)
[2020-02-17 17:16] LABS: ALBUMIN 4.2 GM/DL (3.2-5.2); ALT/SGPT 17 U/L (12-78); BILIRUBIN,TOTAL 0.3 MG/DL (0.2-1.0); BLOOD UREA NITROGEN 10 MG/DL (7-18); CALCIUM LEVEL 9.5 MG/DL (8.8-10.2); CARBON DIOXIDE LEVEL 28 MEQ/L (21-32); CHLORIDE LEVEL 108 MEQ/L (98-107); CREATININE FOR GFR 0.82 MG/DL (0.55-1.30); GLOMERULAR FILTRATION RATE > 60.0 (>45); GLUCOSE, FASTING 71 MG/DL (70-100); POTASSIUM SERUM 4.3 MEQ/L (3.5-5.1); SODIUM LEVEL 141 MEQ/L (136-145); TOTAL PROTEIN 7.3 GM/DL (6.4-8.2)
[2020-02-17 17:50] LABS: ERYTHROCYTE SEDIMENTATION RATE 5 mm/hr (0-30)
== END ==
LOC: M SFHCRHEU 14:44
PROVIDERS: ATTEND Internal Medicine
DX: M05.9 Rheumatoid arthritis with rheumatoid factor, unspecified (principal)

== ENCOUNTER → 2020-04-20 | Outpatient (CLI) | payer MEDICARE, MEDICAID ==
[~2020-04-20] MED LIST changes: +LISI10TA22 PO; -LISI10TA4 PO
--- NOTE | 2020-04-23 00:35 | ECWPNPC ---
PATIENT NAME: MARY PEÑA : 1950 GENDER: FEMALE VISIT DATE: 04/20/2020 DISCHARGE DATE: 04/20/20 1040 VISIT LOCKED DATE TIME: PHYSICIAN: BARRY DUMONT RESOURCE: BARRY DUMONT REASON FOR APPOINTMENT 1. UPPER BACK/NECK HISTORY OF PRESENT ILLNESS DEPRESSION SCREENING: PHQ-2 (2015 EDITION) LITTLE INTEREST OR PLEASURE IN DOING THINGS?NOT AT ALL FEELING DOWN, DEPRESSED, OR HOPELESS?NOT AT ALL TOTAL SCORE0 GENERAL: HERE FOR FOLLOW-UP OF CHRONIC NECK PAIN AND GENERALIZED BACK PAIN. IS RECOUPING FROM COVID 19. VERY SHORT OF BREATH TODAY. STATES CURRENT CHRONIC PAIN MEDICATION HELPFUL. DENIES SIDE EFFECTS. WE MAY CONSIDER TRIGGER POINT INJECTIONS IN THE FUTURE IF HER PAIN ESCALATES SHE HAS DONE WELL WITH THEM IN THE PAST. TODAY WE WILL NOT MAKE ANY CHANGES DUE TO HER MEDICAL STATUS.-. FALL RISK SCREENING: SCREENING :ONE FALL WITHOUT INJURY IN THE PAST YEAR PAIN SCREENING: PATIENT HAS A COMPLAINT OF ACUTE OR CHRONIC PAIN :YES LOCATION OF PAIN:LOW BACK INTENSITY OF PAIN (SCALE OF 1 TO 10):9 WHAT DOES YOUR PAIN FEEL LIKE:THROBBING DURATION:INTERMITTENT PAIN IS INCREASED BY:ACTIVITIES PAIN IS DECREASED BY:USE OF PAIN MEDICATIONS NURSING NOTE: -. PAIN CENTER INTAKE QUESTIONS: DO YOU HAVE A HISTORY OF MRSA? :NO DO YOU TAKE A BLOOD THINNERS? :NO DO YOU HAVE ANY BLEEDING DISORDERS? :NO ANY NEW NUMBNESS OR WEAKNESS IN YOUR LEGS OR ARMS? :NO ANY PACEMAKER,DEFIBRILLATOR, OR DORSAL COLUMN STIMULATOR? :NO DO YOU HAVE ANY RASHES OR OPEN SORES? :NO ARE YOU ALLERGIC TO IV DYE? :NO ARE YOU DIABETIC? :NO ANY NEW PROBLEMS WITH YOUR MEDICATIONS? :NO HAVE YOU RECEIVED A VACCINE IN THE PAST 30 DAYS? :NO DO YOU PLAN TO RECEIVE A VACCINE IN THE NEXT 21 DAYS? :YES IF SO WHAT VACCINE AND WHEN? WOULD LIKE TO GET FLU AND SHINGLES VACCINES DO YOU NEED ANY PRESCRIPTION? :YES TRAZADONE AMD TRAMADOL DO YOU TAKE ANY IMMUNOSUPPRESSIVE MEDICATIONS? :NO IS THERE A CHANCE YOU COULD BE ? :NO ARE YOU BREAST FEEDING? :NO CURRENT MEDICATIONS TAKING CYMBALTA 60 MG CAPSULE DELAYED RELEASE PARTICLES 1 CAPSULE ORALLY ONCE A DAY TAKING METOPROLOL SUCCINATE ER 25 MG TABLET EXTENDED RELEASE 24 HOUR 1/2 TABLET ORALLY BID TAKING ASPIR-81 81 MG TABLET DELAYED RELEASE 1 TABLET ORALLY ONCE A DAY TAKING VITAMIN D 1000 UNIT TABLET 1 TABLET ORALLY BID TAKING OMEPRAZOLE 40 MG CAPSULE DELAYED RELEASE 1 CAPSULE ORALLY BID TAKING MIRALAX - POWDER 1 PACKET MIXED WITH 8 OUNCES OF FLUID ORALLY BID(HAS BEEN ONLY TAKING IT DAILY), NOTES: PRN TAKING STIOLTO RESPIMAT 2.5-2.5 MCG/ACT AEROSOL SOLUTION 2 PUFFS INHALATION ONCE A DAY TAKING COLACE 100 MG CAPSULE 1 CAPSULE NEEDED ORALLY BID TAKING MECLIZINE HCL 12.5 MG TABLET 1 TABLET ORALLY THREE TIMES DAILY NEEDED TAKING BIOTIN 1 CAP ORALLY ONCE A DAY TAKING FERROUS SULFATE ER 142 (45 FE) MG TABLET EXTENDED RELEASE 1 TABLET ORALLY ONCE A DAY TAKING CALCIUM CITRATE 500 MG CAPSULE ORALLY BID TAKING PREVAGEN 10 MG CAPSULE 1 CAP ORALLY DAILY TAKING TRAMADOL HCL 50 MG TABLET 1 TAB ORALLY Q6H PRN MDD4 TAKING TRAZODONE HCL 100 MG TABLET 1 TABLET AT BEDTIME ORALLY ONCE A DAY TAKING ROPINIROLE HCL 0.5 MG TABLET TAKE ONE TABLET BY MOUTH THREE TIMES A DAY ORAL TAKING LINZESS 290 MCG CAPSULE 1 CAPSULE ORALLY ONCE A DAY, NOTES: 04/22 9PM TAKING SULFASALAZINE 500 MG TABLET 1 TABLET ORALLY BID NOT-TAKING TYMLOS 3120 MCG/1.56ML SOLUTION PEN-INJECTOR DIRECTED SUBCUTANEOUS BEFORE BEDTIME NOT-TAKING VITAMIN D 25 MCG (1000 UT) TABLET 1 TABLET ORALLY TWICE DAILY NOT-TAKING MAY USE PILL MEDICAL MARIJUANA NOT-TAKING GABAPENTIN 300 MG CAPSULE 1 CAPSULE ORALLY Q8H TID NOT-TAKING RAMIPRIL 2.5 MG CAPSULE 1 CAPSULE ORALLY ONCE A DAY NOT-TAKING MORPHINE SULFATE ER 15 MG TABLET EXTENDED RELEASE 1 TABLET ORALLY DAILY NOT-TAKING MELOXICAM 7.5 MG TABLET 1 TABLET ORALLY BID NOT-TAKING TRIAMCINOLONE ACETONIDE 0.025 % CREAM 1 APPLICATION TO AFFECTED AREA EXTERNALLY TWICE A DAY NOT-TAKING CLOTRIMAZOLE 1 % CREAM 1 APPLICATION TO AFFECTED AREA EXTERNALLY TWICE A DAY NOT-TAKING ERGOCALCIFEROL 50352 UNIT CAPSULE 1 CAPSULE ORALLY WEEKLY NOT-TAKING CARAFATE 1 GM TABLET 1 TABLET ON AN EMPTY STOMACH ORALLY TWICE A DAY MEDICATION LIST REVIEWED AND RECONCILED WITH THE PATIENT PAST MEDICAL HISTORY GERD OSTEOPOROSIS HYPERLIPID CHRONIC PAIN CONSTIPATION PINCHED NERVE RESTLESS ARM SYNDROME CARPAL TUNNEL RIGHT LUPUS CABALLERO X 2 RIGHT LUNG CA RA(DR. SMITH) OR X2 () ALLERGIES GABAPENTIN: DIFFICULTY BREATHING - ALLERGY SOCIAL HISTORY GENERAL: TOBACCO USE ARE YOU A:CURRENT SMOKER ARE YOU INTERESTED IN QUITTING?NOT READY TO QUIT STATES SHE HAS CUT DOWN BUT THIS IS THE ONLY ENJOYMENT SHE GETS OUT OF LIFE. HOW MANY CIGARETTES A DAY DO YOU SMOKE?11-20 HOW SOON AFTER YOU WAKE UP DO YOU SMOKE YOUR FIRST CIGARETTE?31-60 MIN HOW OFTEN DO YOU SMOKE CIGARETTES?EVERY DAY PATIENT COUNSELED ON THE DANGERS OF TOBACCO USE AND URGED TO QUIT:04/20/2020 SMOKING CESSATION INFORMATION GIVEN11/06/2018 LATEX QUESTIONNAIRE LATEX ALLERGY : HAVE YOU EVER DEVELOPED ANY TYPE OF REACTION AFTER HANDLING LATEX PRODUCTS SUCH RUBBER GLOVES, CONDOMS, DIAPHRAGMS, BALLOONS, SOCKS, OR UNDERWEAR?NO LATEX ALLERGY : HAVE YOU EVER DEVELOPED ANY TYPE OF REACTION DURING OR AFTER DENTAL APPOINTMENT, VAGINAL/RECTAL EXAMINATION, SURGICAL PROCEDURE, OR ANY OTHER EXPOSURE?NO LATEX RISK : HAVE YOU EVER HAD ANY DIFFICULTY BREATHING OR HIVES AFTER EATING OR HANDLING ANY FRUITS, OR VEGETABLES; SUCH KIWI, BANANAS, STONE FRUITS, OR CHESTNUTSNO LATEX RISK : DO YOU HAVE A PREVIOUS PERSONAL HISTORY OF MORE THAN NINE SURGERIES, SPINA BIFIDA, OR REPEATED CATHERIZATIONS? NO LATEX RISK : ARE YOU FREQUENTLY EXPOSED TO LATEX PRODUCTS IN YOUR OCCUPATION?NO DATE ASKED : 04/20/2020 ALCOHOL USE: NO. ALCOHOL SCREENING DID YOU HAVE A DRINK CONTAINING ALCOHOL IN THE PAST YEAR?NO POINTS0 INTERPRETATIONNEGATIVE RECREATIONAL DRUG USE DRUG USE?NO CAFFEINE CAFFEINE USE?YES HOW OFTEN AND HOW MUCH? 3-4 POTS COFFEE/DAY BAPTISM [id number] YAZDANISM NO YARSANI BELIEFS THAT WOULD IMPACT HEALTH CARE. LANGUAGE LANGUAGES SPOKEN:MALAYSIAN LEARNING BARRIERS / SPECIAL NEEDS CHANGE FROM LAST VISIT?NO BARRIERS TO LEARNING?YES COMMENTS HAS PROBLEMS WITH REMEMBERING HEARING IMPAIRED?NO VISION IMPAIRED?YES :CORRECTIVE LENSES COGNITIVELY IMPAIRED?NO READINESS TO LEARN?YES LEARNING PREFERENCES?YES :DEMONSTRATION/VERBAL INSTRUCTION LEARNING CAPABILITIES PRESENT?YES EMOTIONAL BARRIERS?NO SPECIAL DEVICES?YES :CANE USES IT OCCASSIONALLY INSTRUCTIONAL DESIGN TECHNOLOGIST NEEDED?NO DOMESTIC VIOLENCE DO YOU FEEL SAFE IN YOUR ENVIRONMENT?YES - PFS REFERRAL NEEDED?NO CLERGY REFERRAL NEEDED?NO PUBLIC HEALTH REFERRAL NEEDED?NO WAS THE PROVIDER NOTIFIED OF ANY PERTINENT INFO?YES N//A HAS THE PATIENT BEEN EDUCATED REGARDING HIS/HER PLAN OF CARE?YES HAS THE PATIENT BEEN EDUCATED REGARDING PAIN, THE RISK FOR PAIN, THE IMPORTANCE OF EFFECTIVE PAIN MANAGEMENT, AND THE PAIN ASSESSMENT PROCESS?YES ADVANCE DIRECTIVE ADVANCE DIRECTIVE DISCUSSED WITH PATIENT:YES HCP - MARY LAWSON (FRIEND) . PT REPORTS SHE HAS A DNR. REVIEW OF SYSTEMS CONSTITUTIONAL: ANY RECENT FEVER NO . CHILLS NO . WEIGHT CHANGE OF UNKNOWN REASONS NO . GASTROENTEROLOGY: NEW UNEXPLAINABLE CHANGES IN BOWEL CONTROL NO . CONSTIPATION NO . GENITOURINARY: ANY NEW CHANGE IN BLADDER CONTROL? NO . NEUROLOGY: NEW ONSET DIZZINESS OR NEUROLOGICAL CHANGES NOT MENTIONED NO . NEW NUMBNESS OR PAIN PATTERNS NOT MENTIONED AND PERTINENT TO TODAY'S VISIT NO . CARDIOLOGY: NEW CHEST PRESSURE NO . NEW CHEST PAIN NO . RESPIRATORY: UNEXPLAINABLE COUGH NO . NEW SHORTNESS OF BREATH SHORTNESS OF BREATH SINCE COVID 19 IN FEBRUARY 2020 . VITAL SIGNS WT 92.8 LBS, HT 56 IN, BMI 20.80 INDEX, BP 146/69 MM HG, HR 87 /MIN, RR 16 /MIN, TEMP 98 F, OXYGEN SAT % 95%, SAFE IN ENV? (Y/N) YEST.GARY IVAN. EXAMINATION GENERAL EXAMINATION: GENERALAWAKE,ALERT ,PLEASANT . PSYCHAFFECT NORMAL . LUNGS:LUNG STEWARD ARE CLEAR TO AUSCULTATION BILATERALLY. GOOD MOVEMENT OF AIR . HEART:S1, S2 IN A REGULAR RATE AND RHYTHM. NO SIGNIFICANT MURMURS, RUBS OR GALLOPS NOTED . ASSESSMENTS MYALGIA OF MUSCLE OF NECK - M79.18 (PRIMARY) CHRONIC PRESCRIPTION OPIATE USE - Z79.899 TREATMENT MYALGIA OF MUSCLE OF NECK REFILL TRAMADOL HCL TABLET, 50 MG, 1 TAB, ORALLY, Q6H PRN MDD4, 30 DAYS, 120, REFILLS 2 REFILL TRAZODONE HCL TABLET, 100 MG, 1 TABLET AT BEDTIME, ORALLY, ONCE A DAY, 30 DAYS, 30 TABLET, REFILLS 5 NOTES: ISTOP REGISTRY REVIEWED AND DEMONSTRATES COMPLLIANCE. BRINGS IN MEDICATIONS WHICH IS APPROPRIATE FOR WHAT WAS DISPENSED. RECENT URINE TOXICOLOGY REVIEWED. NO UNAUTHORIZED MEDICATIONS. NO ILLICIT SUBSTANCES AND PRESCRIBED MEDICATIONS WERE PRESENT. URINE TOX TODAY , RISKS OF NARCOTIC/OPIOD MEDICATIONS INCLUDES BUT IS NOT LIMITED TO RISK OF DEPENDANCE/DEVELOPMENT OF ADDICTION, MOOD DISTURBANCE AND DEPRESSION, OSTEOPOROSIS, HORMONAL AND LABIDAL CHANGES, RESPIRATORY DEPRESSION AND . PATIENT IS ADVISED NOT TO DRIVE OR DRINK ALCOHOL WHILE ON THESE MEDICATIONS. PROCEDURE CODES FA211 ESTABILISHED PATIENT [facility] FACILITY CHARGE DISPOSITION & COMMUNICATION FOLLOW UP 2 MONTHS (REASON: MED MGMNT) ELECTRONICALLY SIGNED BY BARRY AMOR, ZULEYMA ON 04/22/2020 AT 08:53 PM EST DISCLAIMER : THIS IS A VISIT SUMMARY EXTRACTED FROM THE [employer] CHART. IT IS NOT A COPY OF THE [employer] PROGRESS NOTE. RIZWANA
== END ==
LOC: M PAIN 10:00
PROVIDERS: ATTEND Nurse Practitioner Family
DX: M79.18 Myalgia, other site (principal); K21.9 Gastro-esophageal reflux disease without esophagitis; I25.2 Old myocardial infarction; F17.210 Nicotine dependence, cigarettes, uncomplicated; Z88.8 Allergy status to other drugs, medicaments and biological substances; Z79.82 Long term (current) use of aspirin; Z79.891 Long term (current) use of opiate analgesic; Z79.899 Other long term (current) drug therapy

== ENCOUNTER → 2020-07-15 | Outpatient (CLI) | payer MEDICAID, MEDICARE ==
--- NOTE | 2020-07-17 17:01 | REP ---
INDICATION: MALIGNANT NEOPLASM OF LOWER LOBE, RIGHT BRONCHUS COMPARISON: Multiple the latest 01/22/2020 TECHNIQUE: Limited noncontrast enhanced helical technique FINDINGS: The mediastinum and pulmonary cierra are unchanged. There are no pleural or pericardial effusions. There is no change in the imaged upper abdomen or imaged osseous structures. Evaluation of the lung rodriguez shows scattered asymmetric and patchy opacities in the lower lung zone bilaterally all of which is increased from the prior exam. A new patchy opacity has developed in the right upper lobe and in the posterior right middle lobe. There is metallic spray artifact seen adjacent to a right paraspinal lower lobe mass consistent with a fiducial marker. The mass density itself has increased in size. IMPRESSION: 1. Lung field abnormalities consistent with fibrotic and/or subsegmental atelectatic changes. I cannot rule out developing pneumonia. This would need to be correlated clinically. 2. Increase in size in the right paraspinal lower lobe mass density with suspected fiducial marker in place. 3. Advanced chronic spinal changes with numerable biconcave vertebral body compression deformities which appear essentially stable. 4. Other findings and limitations as described above. <Electronically signed by Kvng Cuevas > 07/17/20 7325
== END ==
LOC: M RAD 15:32
PROVIDERS: ATTEND Radiology Radiation Oncology
DX: C34.31 Malignant neoplasm of lower lobe, right bronchus or lung (principal); J98.11 Atelectasis; Z97.8 Presence of other specified devices

== ENCOUNTER → 2020-07-17 | Outpatient (CLI) | payer MEDICARE, MEDICAID ==
--- NOTE | 2020-07-21 14:59 | ECWPNPC ---
PATIENT NAME: MARY PEÑA : 1950 GENDER: FEMALE VISIT DATE: 07/17/2020 DISCHARGE DATE: 07/17/20 1015 VISIT LOCKED DATE TIME: PHYSICIAN: BARRY DUMONT RESOURCE: BARRY DUMONT REASON FOR APPOINTMENT 1. UPPER BACK/NECK HISTORY OF PRESENT ILLNESS GENERAL: HERE FOR FOLLOW-UP OF CHRONIC NECK AND LOW BACK PAIN. PAIN HAS INCREASED OVER THE PAST FEW MONTHS. FEELS MEDICATION IS NOT HELPING MUCH ANYMORE. CAN'T TOLERATE STRONGER MEDICATIONS. HISTORY OF RIGHT LUNG CANCER. FOLLOWS WITH ONCOLOGY IN [place]. SHE IS INTERESTED IN TRYING INJECTIONS AGAIN BECAUSE THEY WERE HELPFUL. WE WILL OBTAIN MEDICAL CLEARANCE FOR INJECTION AND DISCUSS WITH DR. JOHNS. REPORTING POOR SLEEP AT NIGHT DESPITE TRAZODONE 100 MG AT NIGHTTIME . -. FALL RISK SCREENING: SCREENING 02/2020 FALLS REPORTED IN THE LAST YEAR DURING THE TIME SHE HAD THE COVID. ALSO FALL A COUPLE F TIME THIS YEAR NO INJURIES JUST IN PAIN AND BLACK AND BLUE.. PAIN SCREENING: PATIENT HAS A COMPLAINT OF ACUTE OR CHRONIC PAIN :YES LOCATION OF PAIN:NECK, UPPER BACK INTENSITY OF PAIN (SCALE OF 1 TO 10):20 WHAT DOES YOUR PAIN FEEL LIKE:ACHING, BURNING, SHARP, STABBING, TENDER, THROBBING, SORE DURATION:CONTINOUS, CONSTANT, ALL DAY PAIN IS INCREASED BY:ACTIVITIES PAIN IS DECREASED BY:USE OF PAIN MEDICATIONS NOTHING IS WORKING RIGHT NOW NURSING NOTE: -. PAIN CENTER INTAKE QUESTIONS: DO YOU HAVE A HISTORY OF MRSA? :NO DO YOU TAKE A BLOOD THINNERS? :NO APSIN 81MG DO YOU HAVE ANY BLEEDING DISORDERS? :NO ANY NEW NUMBNESS OR WEAKNESS IN YOUR LEGS OR ARMS? :NO ANY PACEMAKER,DEFIBRILLATOR, OR DORSAL COLUMN STIMULATOR? :NO DO YOU HAVE ANY RASHES OR OPEN SORES? :NO ARE YOU ALLERGIC TO IV DYE? :NO ARE YOU DIABETIC? :NO ANY NEW PROBLEMS WITH YOUR MEDICATIONS? :NO HAVE YOU RECEIVED A VACCINE IN THE PAST 30 DAYS? :YES IF SO WHAT VACCINE AND WHEN? 2ND COVID SHOT 06/15/2020 DO YOU PLAN TO RECEIVE A VACCINE IN THE NEXT 21 DAYS? :NO DO YOU NEED ANY PRESCRIPTION? :YES TRAZADONE AMD TRAMADOL DO YOU TAKE ANY IMMUNOSUPPRESSIVE MEDICATIONS? :NO IS THERE A CHANCE YOU COULD BE ? :NO ARE YOU BREAST FEEDING? :NO CURRENT MEDICATIONS TAKING CYMBALTA 60 MG CAPSULE DELAYED RELEASE PARTICLES 1 CAPSULE ORALLY ONCE A DAY TAKING METOPROLOL SUCCINATE ER 25 MG TABLET EXTENDED RELEASE 24 HOUR 1/2 TABLET ORALLY BID TAKING ASPIR-81 81 MG TABLET DELAYED RELEASE 1 TABLET ORALLY ONCE A DAY TAKING VITAMIN D 1000 UNIT TABLET 1 TABLET ORALLY BID TAKING OMEPRAZOLE 40 MG CAPSULE DELAYED RELEASE 1 CAPSULE ORALLY BID TAKING MIRALAX - POWDER 1 PACKET MIXED WITH 8 OUNCES OF FLUID ORALLY BID(HAS BEEN ONLY TAKING IT DAILY), NOTES: PRN TAKING STIOLTO RESPIMAT 2.5-2.5 MCG/ACT AEROSOL SOLUTION 2 PUFFS INHALATION ONCE A DAY TAKING COLACE 100 MG CAPSULE 1 CAPSULE NEEDED ORALLY BID TAKING MECLIZINE HCL 12.5 MG TABLET 1 TABLET ORALLY THREE TIMES DAILY NEEDED TAKING BIOTIN 1 CAP ORALLY ONCE A DAY TAKING FERROUS SULFATE ER 142 (45 FE) MG TABLET EXTENDED RELEASE 1 TABLET ORALLY ONCE A DAY TAKING CALCIUM CITRATE 500 MG CAPSULE ORALLY BID TAKING PREVAGEN 10 MG CAPSULE 1 CAP ORALLY DAILY TAKING ROPINIROLE HCL 0.5 MG TABLET TAKE ONE TABLET BY MOUTH THREE TIMES A DAY ORAL TAKING LINZESS 290 MCG CAPSULE 1 CAPSULE ORALLY ONCE A DAY, NOTES: 04/22 9PM TAKING SULFASALAZINE 500 MG TABLET 1 TABLET ORALLY BID TAKING TRAMADOL HCL 50 MG TABLET 1 TAB ORALLY Q6H PRN MDD4 TAKING TRAZODONE HCL 100 MG TABLET 1 TABLET AT BEDTIME ORALLY ONCE A DAY NOT-TAKING TYMLOS 3120 MCG/1.56ML SOLUTION PEN-INJECTOR DIRECTED SUBCUTANEOUS BEFORE BEDTIME NOT-TAKING VITAMIN D 25 MCG (1000 UT) TABLET 1 TABLET ORALLY TWICE DAILY NOT-TAKING MAY USE PILL MEDICAL MARIJUANA NOT-TAKING GABAPENTIN 300 MG CAPSULE 1 CAPSULE ORALLY Q8H TID NOT-TAKING RAMIPRIL 2.5 MG CAPSULE 1 CAPSULE ORALLY ONCE A DAY NOT-TAKING MORPHINE SULFATE ER 15 MG TABLET EXTENDED RELEASE 1 TABLET ORALLY DAILY NOT-TAKING MELOXICAM 7.5 MG TABLET 1 TABLET ORALLY BID NOT-TAKING TRIAMCINOLONE ACETONIDE 0.025 % CREAM 1 APPLICATION TO AFFECTED AREA EXTERNALLY TWICE A DAY NOT-TAKING CLOTRIMAZOLE 1 % CREAM 1 APPLICATION TO AFFECTED AREA EXTERNALLY TWICE A DAY NOT-TAKING ERGOCALCIFEROL 43807 UNIT CAPSULE 1 CAPSULE ORALLY WEEKLY NOT-TAKING CARAFATE 1 GM TABLET 1 TABLET ON AN EMPTY STOMACH ORALLY TWICE A DAY MEDICATION LIST REVIEWED AND RECONCILED WITH THE PATIENT PAST MEDICAL HISTORY GERD OSTEOPOROSIS HYPERLIPID CHRONIC PAIN CONSTIPATION PINCHED NERVE RESTLESS ARM SYNDROME CARPAL TUNNEL RIGHT LUPUS CABALLERO X 2 RIGHT LUNG CA RA(DR. SMITH) DE X2 () ALLERGIES GABAPENTIN: DIFFICULTY BREATHING - ALLERGY SOCIAL HISTORY GENERAL: TOBACCO USE ARE YOU A:CURRENT SMOKER ARE YOU INTERESTED IN QUITTING?NOT READY TO QUIT STATES SHE HAS CUT DOWN BUT THIS IS THE ONLY ENJOYMENT SHE GETS OUT OF LIFE. COUNSELED THE PATIENT ON SMOKING EFFECTS, EDUCATION [id number]/07/2021 HOW MANY CIGARETTES A DAY DO YOU SMOKE?11-20 HOW SOON AFTER YOU WAKE UP DO YOU SMOKE YOUR FIRST CIGARETTE?31-60 MIN HOW OFTEN DO YOU SMOKE CIGARETTES?EVERY DAY PATIENT COUNSELED ON THE DANGERS OF TOBACCO USE AND URGED TO QUIT:04/20/2020 SMOKING CESSATION INFORMATION GIVEN11/06/2018 LATEX QUESTIONNAIRE LATEX ALLERGY : HAVE YOU EVER DEVELOPED ANY TYPE OF REACTION AFTER HANDLING LATEX PRODUCTS SUCH RUBBER GLOVES, CONDOMS, DIAPHRAGMS, BALLOONS, SOCKS, OR UNDERWEAR?NO LATEX ALLERGY : HAVE YOU EVER DEVELOPED ANY TYPE OF REACTION DURING OR AFTER DENTAL APPOINTMENT, VAGINAL/RECTAL EXAMINATION, SURGICAL PROCEDURE, OR ANY OTHER EXPOSURE?NO LATEX RISK : HAVE YOU EVER HAD ANY DIFFICULTY BREATHING OR HIVES AFTER EATING OR HANDLING ANY FRUITS, OR VEGETABLES; SUCH KIWI, BANANAS, STONE FRUITS, OR CHESTNUTSNO LATEX RISK : DO YOU HAVE A PREVIOUS PERSONAL HISTORY OF MORE THAN NINE SURGERIES, SPINA BIFIDA, OR REPEATED CATHERIZATIONS? NO LATEX RISK : ARE YOU FREQUENTLY EXPOSED TO LATEX PRODUCTS IN YOUR OCCUPATION?NO DATE ASKED : 07/17/2020 ALCOHOL USE: NO. ALCOHOL SCREENING DID YOU HAVE A DRINK CONTAINING ALCOHOL IN THE PAST YEAR?NO POINTS0 INTERPRETATIONNEGATIVE RECREATIONAL DRUG USE DRUG USE?NO CAFFEINE CAFFEINE USE?YES HOW OFTEN AND HOW MUCH? 3-4 POTS COFFEE/DAY LATTER-DAY [id number] [facility]IST NO LUTHERAN BELIEFS THAT WOULD IMPACT HEALTH CARE. LANGUAGE LANGUAGES SPOKEN:EMIRATI LEARNING BARRIERS / SPECIAL NEEDS CHANGE FROM LAST VISIT?NO BARRIERS TO LEARNING?YES COMMENTS HAS PROBLEMS WITH REMEMBERING HEARING IMPAIRED?NO VISION IMPAIRED?YES :CORRECTIVE LENSES COGNITIVELY IMPAIRED?NO READINESS TO LEARN?YES LEARNING PREFERENCES?YES :DEMONSTRATION/VERBAL INSTRUCTION LEARNING CAPABILITIES PRESENT?YES EMOTIONAL BARRIERS?NO SPECIAL DEVICES?YES :CANE USES IT OCCASSIONALLY FUNERAL HOME DIRECTOR NEEDED?NO DOMESTIC VIOLENCE DO YOU FEEL SAFE IN YOUR ENVIRONMENT?YES - PFS REFERRAL NEEDED?NO CLERGY REFERRAL NEEDED?NO PUBLIC HEALTH REFERRAL NEEDED?NO WAS THE PROVIDER NOTIFIED OF ANY PERTINENT INFO?YES N//A HAS THE PATIENT BEEN EDUCATED REGARDING HIS/HER PLAN OF CARE?YES HAS THE PATIENT BEEN EDUCATED REGARDING PAIN, THE RISK FOR PAIN, THE IMPORTANCE OF EFFECTIVE PAIN MANAGEMENT, AND THE PAIN ASSESSMENT PROCESS?YES ADVANCE DIRECTIVE ADVANCE DIRECTIVE DISCUSSED WITH PATIENT:YES HCP - MARY LAWSON (FRIEND) . PT REPORTS SHE HAS A DNR. REVIEW OF SYSTEMS CONSTITUTIONAL: ANY RECENT FEVER NO . CHILLS NO . WEIGHT CHANGE OF UNKNOWN REASONS NO . GASTROENTEROLOGY: NEW UNEXPLAINABLE CHANGES IN BOWEL CONTROL NO . CONSTIPATION NO . GENITOURINARY: ANY NEW CHANGE IN BLADDER CONTROL? NO . NEUROLOGY: NEW ONSET DIZZINESS OR NEUROLOGICAL CHANGES NOT MENTIONED NO . NEW NUMBNESS OR PAIN PATTERNS NOT MENTIONED AND PERTINENT TO TODAY'S VISIT NO . CARDIOLOGY: NEW CHEST PRESSURE NO . PATIENT DENIES NO . RESPIRATORY: UNEXPLAINABLE COUGH NO . NEW SHORTNESS OF BREATH NO . VITAL SIGNS WT 96.5 LBS, HT 56 IN, BMI 21.63 INDEX, BP 120/75 MM HG, HR 71 /MIN, RR 16 /MIN, TEMP 95.0 F, OXYGEN SAT % 92%, SAFE IN ENV? (Y/N) YES, NA INITIALS [place] 09:39T.GARY IVAN. EXAMINATION GENERAL EXAMINATION: GENERALAWAKE,ALERT ,PLEASANT . PSYCHAFFECT NORMAL . LUNGS:LUNG STEWARD ARE CLEAR TO AUSCULTATION BILATERALLY. GOOD MOVEMENT OF AIR . HEART:S1, S2 IN A REGULAR RATE AND RHYTHM. NO SIGNIFICANT MURMURS, RUBS OR GALLOPS NOTED . ASSESSMENTS MYALGIA OF MUSCLE OF NECK - M79.18 (PRIMARY) TREATMENT MYALGIA OF MUSCLE OF NECK REFILL TRAMADOL HCL TABLET, 50 MG, 1 TAB, ORALLY, Q6H PRN MDD4, 30 DAYS, 120, REFILLS 2 REFILL TRAZODONE HCL TABLET, 100 MG, 1 TABLET AT BEDTIME, ORALLY, ONCE A DAY, 30 DAYS, 30 TABLET, REFILLS 2 START TIZANIDINE HCL TABLET, 2 MG, 1 TABLET NEEDED, ORALLY, AT BEDTIME, 30 DAYS, 30, REFILLS 2 NOTES: WE WILL SEND REQUEST TO MARTINEZ Elliott [facility] IN [place] IN REGARDS TO RIGHT LUNG CANCER AND PERFORMING A CERVICAL EPIDURAL STEROID INJECTION. START TIZANIDINE 2 MG 1 TABLET AT NIGHTTIME FOR PAIN. CONTINUE OTHER CHRONIC PAIN MEDICATIONS. FOLLOW-UP IS SCHEDULED IN 6-8 WEEKS. PRINTED INFORMATION ON NEW MEDICATION TIZANIDINE FOR PATIENT BASHIR MARZENA. REFERRAL TO:MECHE SNYDER REASON:PATIENT WITH HISTORY OF RIGHT LUNG CA,FOLLOWS WITH DR[facility] MECHE CHAHAL[facility] [place].REQUESTING CLEARANCE TO DO CERVICAL EPIDURAL WITH STEROIDS DUE TO NECK PAIN WITH RIGHT ARM RADICULAR SYMPTOMS.DR. JOHNS IS CONCERNED THAT CHANTAL COULD POSE A RISK OF SEEDING CANCER INTO CENTRAL NERVOUS SYSTEM BY PERFORMING THIS PROCEDURE.HE WOULD LIKE YOUR THOUGHTS REGARDING THIS IN REGARDS TO TYPE OF CANCER SHE HAS.THANK YOU PROCEDURE CODES FA211 ESTABILISHED PATIENT [facility] CHARGE DISPOSITION & COMMUNICATION FOLLOW UP 6-8WKS REVIEW MED CLEARANCE/NEW START TIZANIDINE AT HS (REASON: CONSIDER CHANTAL AFTER REVIEW MED CLEARANCE/F/U TIZANIDINE ) ELECTRONICALLY SIGNED BY ZULEYMA SWANSON ON 07/20/2020 AT 08:44 PM EDT DISCLAIMER : THIS IS A VISIT SUMMARY EXTRACTED FROM THE [employer] CHART. IT IS NOT A COPY OF THE [employer] PROGRESS NOTE. RIZWANA
== END ==
LOC: M PAIN 09:15
PROVIDERS: ATTEND Nurse Practitioner Family
DX: M79.18 Myalgia, other site (principal); K21.9 Gastro-esophageal reflux disease without esophagitis; I25.2 Old myocardial infarction; F17.210 Nicotine dependence, cigarettes, uncomplicated; Z88.8 Allergy status to other drugs, medicaments and biological substances; Z79.82 Long term (current) use of aspirin; Z79.891 Long term (current) use of opiate analgesic; Z79.899 Other long term (current) drug therapy

== ENCOUNTER → 2020-07-30 | Outpatient (CLI) | payer MEDICARE, MEDICAID | LOC: M LABSMTC 09:40 | PROVIDERS: ATTEND Anesthesiology | DX: Z20.822 Contact with and (suspected) exposure to COVID-19 (principal) ==

== ENCOUNTER → 2020-08-04 | Outpatient (CLI) | payer MEDICARE ==
[~2020-08-04] MED LIST changes: +ISOVUE-M 300 61% 15ML VIAL As Ordered ONE; +LIDOCAINE 1% SDV 30ML VIAL As Ordered ONE; +NORCO, ANEXSIA 5/325MG TABLET (HYDROcodone/ACETAMINOPHEN) As Ordered ONE; +methylPREDNISolone SUSP 40MG/ML 1ML VIAL (DEPO MEDROL) As Ordered ONE
--- NOTE | 2020-08-04 10:39 | REP ---
INDICATION: CERVICAL EPIDURAL STEROID INJECTION/ PAIN. COMPARISON: None. TECHNIQUE: Intraoperative fluoroscopic imaging using portable C-arm technique. FINDINGS: Single image demonstrates catheter overlying the cervical epidural space. Total fluoroscopic time 31.9 seconds IMPRESSION: Status post cervical spine epidural injection <Electronically signed by Conrado Trejo > 08/04/20 1036
--- NOTE | 2020-08-07 01:35 | ECWPNPC ---
PATIENT NAME: MARY PEÑA : 1950 GENDER: FEMALE VISIT DATE: 08/04/2020 DISCHARGE DATE: 08/04/20 1046 VISIT LOCKED DATE TIME: PHYSICIAN: MATA JOHNS MD RESOURCE: MATA JOHNS MD REASON FOR APPOINTMENT 1. CERVICAL EPIDURAL STEROID INJECTION HISTORY OF PRESENT ILLNESS GENERAL: -. FALL RISK SCREENING: SCREENING : ONE FALL REPORTED IN THE LAST YEAR WITH [facility]. NO MD EVALUATION FOR FALL. PAIN SCREENING: PATIENT HAS A COMPLAINT OF ACUTE OR CHRONIC PAIN :YES LOCATION OF PAIN:NECK, RIGHT SHOULDER, HAND(S) INTENSITY OF PAIN (SCALE OF 1 TO 10):10 "IT FEELS LIKE A 20" WHAT DOES YOUR PAIN FEEL LIKE:STABBING, ACHING "SHOULDER FEELS LIKE BONE AGAINST BONE." PATIENT FEELS LIKE RADIATION TREATMENTS MIGHT HAVE CAUSED INJURY TO HER SHOULDER. DURATION:CONTINOUS, AWAKENS FROM SLEEP PAIN IS INCREASED BY:ACTIVITIES, PROLONGED STANDING PAIN IS DECREASED BY: PATIENT REPORTS NOTHING HELPS, EVEN PAIN MEDICATIONS DONT HELP RELIEVE THE PAIN. PAIN HAS INTERFERED WITH THE FOLLOWING: INTERFERES WITH ALL ADLS, CANE USED. PLAN/GOALS/TREATMENT/INTERVENTION/FOLLOW UP:SEE PLAN NURSING NOTE: -. PAIN CENTER INTAKE QUESTIONS: DO YOU HAVE A HISTORY OF MRSA? :NO DO YOU TAKE A BLOOD THINNERS? :NO DO YOU HAVE ANY BLEEDING DISORDERS? :NO ANY NEW NUMBNESS OR WEAKNESS IN YOUR LEGS OR ARMS? :NO ANY PACEMAKER,DEFIBRILLATOR, OR DORSAL COLUMN STIMULATOR? :NO DO YOU HAVE ANY RASHES OR OPEN SORES? :NO ARE YOU ALLERGIC TO IV DYE? :NO ARE YOU DIABETIC? :NO ANY NEW PROBLEMS WITH YOUR MEDICATIONS? :NO HAVE YOU RECEIVED A VACCINE IN THE PAST 30 DAYS? :NO DO YOU PLAN TO RECEIVE A VACCINE IN THE NEXT 21 DAYS? :NO DO YOU TAKE ANY IMMUNOSUPPRESSIVE MEDICATIONS? :NO ANY HISTORY OF SEIZURES? :NO ANY HISTORY OF CARDIAC ISSUES OR EVENTS? :NO DO YOU HAVE ANY KIDNEY OR LIVER DISEASE? :NO DO YOU HAVE SLEEP APNEA? :NO ANY RECENT HEAD INJURY? :NO DO YOU HAVE ANY NEW INFECTIONS? :NO IS THERE A CHANCE YOU COULD BE ? :NO ARE YOU BREAST FEEDING? :NO WHEN DID YOU LAST EAT? : 08/04/20 MIDNIGHT WHEN DID YOU LAST DRINK? : 08/04/20 0630 WHAT DID YOU LAST DRINK? : WATER NAME OF PERSON DRIVING YOU HOME? : COUSIN, STEVEN DO YOU HAVE ANY OTHER QUESTIONS OR CONCERNS? : NO CURRENT MEDICATIONS TAKING CYMBALTA 60 MG CAPSULE DELAYED RELEASE PARTICLES 1 CAPSULE ORALLY ONCE A DAY TAKING METOPROLOL SUCCINATE ER 25 MG TABLET EXTENDED RELEASE 24 HOUR 1/2 TABLET ORALLY BID, NOTES: 08/04 2099 TAKING ASPIR-81 81 MG TABLET DELAYED RELEASE 1 TABLET ORALLY ONCE A DAY TAKING VITAMIN D 1000 UNIT TABLET 1 TABLET ORALLY BID TAKING OMEPRAZOLE 40 MG CAPSULE DELAYED RELEASE 1 CAPSULE ORALLY BID TAKING MIRALAX - POWDER 1 PACKET MIXED WITH 8 OUNCES OF FLUID ORALLY BID(HAS BEEN ONLY TAKING IT DAILY), NOTES: PRN TAKING STIOLTO RESPIMAT 2.5-2.5 MCG/ACT AEROSOL SOLUTION 2 PUFFS INHALATION ONCE A DAY TAKING COLACE 100 MG CAPSULE 1 CAPSULE NEEDED ORALLY BID TAKING MECLIZINE HCL 12.5 MG TABLET 1 TABLET ORALLY THREE TIMES DAILY NEEDED TAKING BIOTIN 1 CAP ORALLY ONCE A DAY TAKING FERROUS SULFATE ER 142 (45 FE) MG TABLET EXTENDED RELEASE 1 TABLET ORALLY ONCE A DAY TAKING CALCIUM CITRATE 500 MG CAPSULE ORALLY BID TAKING ROPINIROLE HCL 0.5 MG TABLET TAKE ONE TABLET BY MOUTH THREE TIMES A DAY ORAL TAKING LINZESS 290 MCG CAPSULE 1 CAPSULE ORALLY ONCE A DAY, NOTES: NOT RECENTLY TAKING SULFASALAZINE 500 MG TABLET 1 TABLET ORALLY BID TAKING TRAMADOL HCL 50 MG TABLET 1 TAB ORALLY Q6H PRN MDD4, NOTES: 08/04 299 TAKING TRAZODONE HCL 100 MG TABLET 1 TABLET AT BEDTIME ORALLY ONCE A DAY, NOTES: 08/03 2099 TAKING TIZANIDINE HCL 2 MG TABLET 1 TABLET NEEDED ORALLY AT BEDTIME, NOTES: 08/03 2099 TAKING VITAMIN D 25 MCG (1000 UT) TABLET 1 TABLET ORALLY TWICE DAILY TAKING MELOXICAM 7.5 MG TABLET 1 TABLET ORALLY BID, NOTES: NOT RECENTLY TAKING TRIAMCINOLONE ACETONIDE 0.025 % CREAM 1 APPLICATION TO AFFECTED AREA EXTERNALLY TWICE A DAY NOT-TAKING PREVAGEN 10 MG CAPSULE 1 CAP ORALLY DAILY NOT-TAKING TYMLOS 3120 MCG/1.56ML SOLUTION PEN-INJECTOR DIRECTED SUBCUTANEOUS BEFORE BEDTIME NOT-TAKING MAY USE PILL MEDICAL MARIJUANA NOT-TAKING GABAPENTIN 300 MG CAPSULE 1 CAPSULE ORALLY Q8H TID NOT-TAKING RAMIPRIL 2.5 MG CAPSULE 1 CAPSULE ORALLY ONCE A DAY NOT-TAKING MORPHINE SULFATE ER 15 MG TABLET EXTENDED RELEASE 1 TABLET ORALLY DAILY NOT-TAKING CLOTRIMAZOLE 1 % CREAM 1 APPLICATION TO AFFECTED AREA EXTERNALLY TWICE A DAY NOT-TAKING ERGOCALCIFEROL [id number] UNIT CAPSULE 1 CAPSULE ORALLY WEEKLY NOT-TAKING CARAFATE 1 GM TABLET 1 TABLET ON AN EMPTY STOMACH ORALLY TWICE A DAY MEDICATION LIST REVIEWED AND RECONCILED WITH THE PATIENT PAST MEDICAL HISTORY GERD OSTEOPOROSIS HYPERLIPID CHRONIC PAIN CONSTIPATION PINCHED NERVE RESTLESS ARM SYNDROME CARPAL TUNNEL RIGHT LUPUS CABALLERO X 2 RIGHT LUNG CA RA(DR. SMITH) DC X2 () ALLERGIES GABAPENTIN: DIFFICULTY BREATHING - ALLERGY SURGICAL HISTORY CSECTION 1974 HYSTERECTOMY 1974 CHOLECYSTECTOMY 2007 LASER DISKECTOMYVAT L5-S1 2007 FAMILY HISTORY FATHER: 68 YRS, DIAGNOSED WITH HYPERTENSION, UNSPECIFIED HEART DISEASE MOTHER: , OTHER SPECIFIED CONDITIONS INFLUENCING HEALTH STATUS 1 BROTHER(S) , 5 SISTER(S) . 2 SON(S) . 1 SISTER IS - CAR ACCIDENT ONE BROTHER IS - DIABETES AND HEART ISSUES ONE SON FROM CAR ACCIDENT\\NMOTHER--COPDNO KNOWN FAMILY HX OF RHEUMATIC ILLNESSES NO KNOWN UROLOGIAL ISSUES IN FAM. SOCIAL HISTORY GENERAL: TOBACCO USE ARE YOU A:CURRENT SMOKER ARE YOU INTERESTED IN QUITTING?NOT READY TO QUIT STATES SHE HAS CUT DOWN BUT THIS IS THE ONLY ENJOYMENT SHE GETS OUT OF LIFE. COUNSELED THE PATIENT ON SMOKING EFFECTS, EDUCATION [id number]/07/2021 HOW MANY CIGARETTES A DAY DO YOU SMOKE?11-20 HOW SOON AFTER YOU WAKE UP DO YOU SMOKE YOUR FIRST CIGARETTE?31-60 MIN HOW OFTEN DO YOU SMOKE CIGARETTES?EVERY DAY PATIENT COUNSELED ON THE DANGERS OF TOBACCO USE AND URGED TO QUIT:08/04/2020 SMOKING CESSATION INFORMATION GIVEN08/04/2020 LATEX QUESTIONNAIRE LATEX ALLERGY : HAVE YOU EVER DEVELOPED ANY TYPE OF REACTION AFTER HANDLING LATEX PRODUCTS SUCH RUBBER GLOVES, CONDOMS, DIAPHRAGMS, BALLOONS, SOCKS, OR UNDERWEAR?NO LATEX ALLERGY : HAVE YOU EVER DEVELOPED ANY TYPE OF REACTION DURING OR AFTER DENTAL APPOINTMENT, VAGINAL/RECTAL EXAMINATION, SURGICAL PROCEDURE, OR ANY OTHER EXPOSURE?NO LATEX RISK : HAVE YOU EVER HAD ANY DIFFICULTY BREATHING OR HIVES AFTER EATING OR HANDLING ANY FRUITS, OR VEGETABLES; SUCH KIWI, BANANAS, STONE FRUITS, OR CHESTNUTSNO LATEX RISK : DO YOU HAVE A PREVIOUS PERSONAL HISTORY OF MORE THAN NINE SURGERIES, SPINA BIFIDA, OR REPEATED CATHERIZATIONS? YES LATEX RISK : ARE YOU FREQUENTLY EXPOSED TO LATEX PRODUCTS IN YOUR OCCUPATION?NO DATE ASKED : 08/03/2020 ALCOHOL USE: NO. ALCOHOL SCREENING DID YOU HAVE A DRINK CONTAINING ALCOHOL IN THE PAST YEAR?NO POINTS0 INTERPRETATIONNEGATIVE RECREATIONAL DRUG USE DRUG USE?NO CAFFEINE CAFFEINE USE?YES HOW OFTEN AND HOW MUCH? 3-4 POTS COFFEE/DAY SPIRITISM [id number] ORTHODOXY NO JEW BELIEFS THAT WOULD IMPACT HEALTH CARE. LANGUAGE LANGUAGES SPOKEN:TAJIK LEARNING BARRIERS / SPECIAL NEEDS CHANGE FROM LAST VISIT?NO BARRIERS TO LEARNING?YES COMMENTS HAS PROBLEMS WITH REMEMBERING HEARING IMPAIRED?NO VISION IMPAIRED?YES :CORRECTIVE LENSES COGNITIVELY IMPAIRED?NO READINESS TO LEARN?YES LEARNING PREFERENCES?YES :DEMONSTRATION/VERBAL INSTRUCTION LEARNING CAPABILITIES PRESENT?YES EMOTIONAL BARRIERS?NO SPECIAL DEVICES?YES :CANE USES IT OCCASSIONALLY BUSINESS SUPPORT ADMINISTRATOR NEEDED?NO DOMESTIC VIOLENCE DO YOU FEEL SAFE IN YOUR ENVIRONMENT?YES - PFS REFERRAL NEEDED?NO CLERGY REFERRAL NEEDED?NO PUBLIC HEALTH REFERRAL NEEDED?NO WAS THE PROVIDER NOTIFIED OF ANY PERTINENT INFO?YES N//A HAS THE PATIENT BEEN EDUCATED REGARDING HIS/HER PLAN OF CARE?YES HAS THE PATIENT BEEN EDUCATED REGARDING PAIN, THE RISK FOR PAIN, THE IMPORTANCE OF EFFECTIVE PAIN MANAGEMENT, AND THE PAIN ASSESSMENT PROCESS?YES ADVANCE DIRECTIVE ADVANCE DIRECTIVE DISCUSSED WITH PATIENT:YES HCP - MARY LAWSON (FRIEND) . PT REPORTS SHE HAS A DNR. HOSPITALIZATION/MAJOR DIAGNOSTIC PROCEDURE CSECTION AND HYSTERECTOMY DC 2004 VITAL SIGNS WT 96 LBS, HT 56 IN, BMI 21.52 INDEX, BP 133/73 MM HG, HR 76 /MIN, RR 16 /MIN, TEMP 98.9 F, OXYGEN SAT % 96%, BLOOD GLUCOSE LEVEL N/A, SAFE IN ENV? (Y/N) YES, NA INITIALS WA 08:24, REVIEWED BY: Tiffanie ALFARO RN BSN. EXAMINATION GENERAL: THE PATIENT IS ALERT, ORIENTED TIMES THREE AND COOPERATIVE. LUNGS ARE CLEAR TO AUSCULTATION. HEART SHOWS REGULAR RHYTHM, NO MURMURS AND NO GALLOPS. ASSESSMENTS CERVICAL DISC DISORDER WITH RADICULOPATHY, UNSPECIFIED CERVICAL REGION - M50.10 (PRIMARY) TREATMENT CERVICAL DISC DISORDER WITH RADICULOPATHY, UNSPECIFIED CERVICAL REGION [facility] FLUORO GUIDE SPINE INJECTION (PAIN)[id number] COMPLETION OF PROCEDURAL VISIT WHEN MEETS CRITERIA MED: PAIN NORCO TABLET 5MG/325MG ORALLY HYDROCODONE/ACETAMINOPHENJASMIN VILLARREAL 08/04/2020 9:13:50 AM > VERIFIED ÁNGEL ALFARO 08/04/2020 9:17:32 AM > ADMINISTERED AT 0915. SALINE LOCKÁNGEL ALFARO 08/04/2020 10:09:38 AM > 20G SALINE LOCK IN LEFT HAND ESTABLISHED ON FIRST ATTEMPT, POSITIVE FLASH, GOOD BLOOD RETURN, POSITIVE FLUSH, NO S/S OF INFILTRATION, PATIENT TOLERATED PROCEDURE WELL. OTHERS NOTES: PAT COMPLETED 08/03/20 M PABLO SOL. PROCEDURES PAIN NURSING RECORD PROCEDURE IN ROOM 0945, PHYSICIAN IN ROOM 1011, START 1017, FINISH 1025, PHYSICIAN OUT OF ROOM 1027, OUT OF ROOM 1035, ECG NORMAL SINUS, PATIENT SHIELDED YES, SAFETY STRAP YES, PREP BETADINE Tiffanie ALFARO RN, DRESSING TEGADERM DR. JOHNS LOC: ÁNGEL ALFARO 08/04/2020 9:45:42 AM > 1. ALERT, ORIENTED LOC REMAINED AT BASELINE THROUGHOUT THE PROCEDURE RESP: ÁNGEL ALFARO 08/04/2020 9:45:42 AM > 1. REGULAR, NO DYSPNEA COLOR: ÁNGEL ALFARO 08/04/2020 9:45:42 AM > 1. PINK SKIN: ÁNGEL ALFARO 08/04/2020 9:45:42 AM > 1. WARM, DRY POSITION: ÁNGEL ALFARO 08/04/2020 9:45:42 AM > 1. PRONE VITALS: RODNEY GONSALVES 08/04/2020 9:32:00 AM > HR 77 O2 93 BP 128/70 ÁNGEL ALFARO 08/04/2020 9:45:05 AM > 182/73, 70, 97% RA, 18. ÁNGEL ALFARO 08/04/2020 10:00:35 AM > 158/70, 74, 95% RA, 18. ÁNGEL ALFARO 08/04/2020 10:15:26 AM > 148/67, 79, 95% RA, 22. ÁNGEL ALFARO 08/04/2020 10:38:49 AM > POST PROCEDURE 152/73, 70, 97% RA, 18. COMPLETION OF PROCEDURE APPOINTMENT: POST PAIN 0/10, DRESSING SITE DRY AND INTACT, IV DISCONTINUED, SITE CLEAR, CATHETER INTACT, GAIT STEADY, TEACHING COMPLETED, PATIENT ACKNOWLEDGES UNDERSTANDING YES PATIENT PROVIDED POST PROCEDURE PAIN DIARY, COVID SYMPTOM MONITORING INSTRUCTIONS AND POST PROCEDURE INSTRUCTIONS, HANDOUTS REVIEWED WITH PATIENT; PATIENT VERBALIZES UNDERSTANDING, NO QUESTIONS OR CONCERNS AT THIS TIME., PROCEDURE APPOINTMENT COMPLETED AT 1045 BY: Tiffanie ALFARO RN PN CERVICAL EPIDURAL PRE PROCEDURE DIAGNOSIS CERVICAL DISC DISORDER WITH RADICULOPATHY POST PROCEDURE DIAGNOSIS CERVICAL DISC DISORDER WITH RADICULOPATHY PROCEDURE CERVICAL EPIDURAL STEROID INJECTION UNDER FLUOROSCOPIC GUIDANCE SURGEON DR. MATA JOHNS ELECTRIC SIGN ASSEMBLER NONE ANESTHESIA LOCAL PRE PROCEDURE NOTE THE PATIENT HAS A HISTORY OF CHRONIC CERVICAL PAIN. I EVALUATED THE PATIENT AND REVIEWED THE CHART. I WENT OVER THE RISKS, ALTERNATIVES, AND BENEFITS ASSOCIATED WITH THIS PROCEDURE. THE PATIENT WOULD LIKE TO PROCEED AND GIVE CONSENT TO PERFORMED THE PROCEDURE. THE PATIENT DENIES UNEXPLAINABLE WEIGHT LOSS, FEVER, CHILLS, OR NEW CHANGES IN URINARY OR BOWEL CONTROL. THE PATIENT IS COVID-19 NEGATIVE DESCRIPTION OF PROCEDURE THE PATIENT WAS BROUGHT TO THE PROCEDURE ROOM AND PLACED IN THE PRONE POSITION. THE CERVICOTHORACIC AREA WAS CLEANED WITH BETADINE SOLUTION AND DRAPED ASEPTICALLY. THE PROCEDURE WAS DONE UNDER STERILE CONDITIONS. A TIMEOUT WAS PERFORMED WHERE THE CONSENTED SITE WAS VERIFIED WITH EVERYONE IN THE ROOM. UNDER FLUOROSCOPIC GUIDANCE, THE TARGET WAS SELECTED AT THE INTERLAMINAR LEVEL OF C7-T1. I CONFIRMED AGAIN THE SITE OF TARGET. LIDOCAINE WAS USED TO NUMB THE SKIN AND THE SUBCUTANEOUS TISSUE BELOW IT. EPIDURAL TUOHY NEEDLE, 17-GAUGE, WAS ADVANCED UNDER FLUOROSCOPIC GUIDANCE AND FOLLOWING PATIENT FEEDBACK UNTIL THE EPIDURAL SPACE WAS REACHED 4 CM DEEP INTO THE SKIN BY THE LOSS OF RESISTANCE TECHNIQUE. ISOVUE-M DYE 30%, 0.25 ML, WAS INJECTED SHOWING ADEQUATE SPREAD OF THE DYE. THEN, A SOLUTION OF 3 ML OF NORMAL SALINE WITH DEPO-MEDROL 40MG WAS INJECTED SLOWLY FOLLOWING PATIENT FEEDBACK. THE MEDICATIONS WERE VERIFIED WITH THE NURSE. THERE WAS NO EVIDENCE OF BLOOD, PARESTHESIA OR CEREBROSPINAL FLUID DURING THE PROCEDURE. ESTIMATED BLOOD LOSS WAS LESS THAN 5 ML. THE PATIENT WAS SENT TO THE RECOVERY ROOM. THE PATIENT WAS MOVING THE EXTREMITIES AND DOING WELL. THERE WERE NO COMPLICATIONS DURING THE PROCEDURE. FLUOROSCOPY TIME WAS 32 SECONDS POST PROCEDURE NOTE THE PATIENT WILL BE SEEN IN A FOLLOW UP IN THE NEXT FEW WEEKS. I AM LOOKING FOR LONG LASTING RELIEF FOR THE PATIENT WITH THIS INTERVENTION. INSTRUCTIONS WERE GIVEN, QUESTIONS WERE ANSWERED, AND THE PATIENT EXPRESSED UNDERSTANDING AND AGREES WITH THE PLAN. I, ASHLYN NICOLE, DOCUMENTED THE ABOVE INFORMATION ACTING A SCRIBE FOR DR. JOHNS. I HAVE REVIEWED THE ABOVE DOCUMENT, WRITTEN BY ASHLYN NICOLE, PETROPHYSICIST, AND I VERIFY THAT IT IS ACCURATE PROCEDURE CODES 10651 CERVICAL/THORACIC W/ IMAGING DISPOSITION & COMMUNICATION FOLLOW UP FOLLOW UP WITH VP [employer] (REASON: POST CERVICAL EPIDURAL STEROID INJECTION) ELECTRONICALLY SIGNED BY MATA JOHNS MD, MD ON 08/06/2020 AT 05:11 PM EDT DISCLAIMER : THIS IS A VISIT SUMMARY EXTRACTED FROM THE [employer] CHART. IT IS NOT A COPY OF THE [employer] PROGRESS NOTE. [email or web address]
== END ==
LOC: M PAIN 08:30
PROVIDERS: ATTEND Anesthesiology
DX: M50.10 Cervical disc disorder with radiculopathy, unspecified cervical region (principal); K21.9 Gastro-esophageal reflux disease without esophagitis; I25.2 Old myocardial infarction; F17.210 Nicotine dependence, cigarettes, uncomplicated; Z88.8 Allergy status to other drugs, medicaments and biological substances; Z79.82 Long term (current) use of aspirin; Z79.891 Long term (current) use of opiate analgesic; Z79.899 Other long term (current) drug therapy
CPT/HCPCS: 62321; J1030; Q9967

== ENCOUNTER → 2020-08-18 | Outpatient (CLI) | payer MEDICARE ==
[~2020-08-18] MED LIST changes: -ISOVUE-M 300 61% 15ML VIAL As Ordered ONE; -LIDOCAINE 1% SDV 30ML VIAL As Ordered ONE; -NORCO, ANEXSIA 5/325MG TABLET (HYDROcodone/ACETAMINOPHEN) As Ordered ONE; -methylPREDNISolone SUSP 40MG/ML 1ML VIAL (DEPO MEDROL) As Ordered ONE
--- NOTE | 2020-08-21 02:49 | ECWPNPC ---
PATIENT NAME: MARY PEÑA : 1950 GENDER: FEMALE VISIT DATE: 08/18/2020 DISCHARGE DATE: 08/18/2047 VISIT LOCKED DATE TIME: PHYSICIAN: BARRY DUMONT RESOURCE: BARRY DUMONT REASON FOR APPOINTMENT 1. POST CERVICAL EPIDURAL STEROID INJECTION HISTORY OF PRESENT ILLNESS GENERAL: HERE FOR POST PROCEDURE F/U.HAD CHANTAL ON 08/04/20.REPORTING MARKED REDUCTION IN PAIN FROM 10/10VAS TO 0/10 VAS.DOING VERY WELL.STATES TIZANIDINE AT NIGHT HAS IMPROVED HER SLEEP. -. FALL RISK SCREENING: SCREENING : NO FALLS REPORTED IN THE LAST YEAR. PAIN SCREENING: PATIENT HAS A COMPLAINT OF ACUTE OR CHRONIC PAIN :YES LOCATION OF PAIN:NECK INTENSITY OF PAIN (SCALE OF 1 TO 10):0 WHAT DOES YOUR PAIN FEEL LIKE:OTHER NOT IN ANY PAIN RIGHT NOW DURATION:ONLY WITH SPECIFIC ACTIVITIES PAIN IS INCREASED BY:ACTIVITIES PAIN IS DECREASED BY:USE OF PAIN MEDICATIONS, OTHERS RESTING NURSING NOTE: -. PAIN CENTER INTAKE QUESTIONS: DO YOU HAVE A HISTORY OF MRSA? :NO DO YOU TAKE A BLOOD THINNERS? :NO APSIN 81MG DO YOU HAVE ANY BLEEDING DISORDERS? :NO ANY NEW NUMBNESS OR WEAKNESS IN YOUR LEGS OR ARMS? :NO ANY PACEMAKER,DEFIBRILLATOR, OR DORSAL COLUMN STIMULATOR? :NO DO YOU HAVE ANY RASHES OR OPEN SORES? :NO ARE YOU ALLERGIC TO IV DYE? :NO ARE YOU DIABETIC? :NO ANY NEW PROBLEMS WITH YOUR MEDICATIONS? :NO HAVE YOU RECEIVED A VACCINE IN THE PAST 30 DAYS? :YES IF SO WHAT VACCINE AND WHEN? 2ND COVID SHOT 06/15/2020 DO YOU PLAN TO RECEIVE A VACCINE IN THE NEXT 21 DAYS? :NO DO YOU NEED ANY PRESCRIPTION? :YES TRAZADONE HCL 100 MG DO YOU TAKE ANY IMMUNOSUPPRESSIVE MEDICATIONS? :NO IS THERE A CHANCE YOU COULD BE ? :NO ARE YOU BREAST FEEDING? :NO CURRENT MEDICATIONS TAKING CYMBALTA 60 MG CAPSULE DELAYED RELEASE PARTICLES 1 CAPSULE ORALLY ONCE A DAY TAKING METOPROLOL SUCCINATE ER 25 MG TABLET EXTENDED RELEASE 24 HOUR 1/2 TABLET ORALLY BID TAKING ASPIR-81 81 MG TABLET DELAYED RELEASE 1 TABLET ORALLY ONCE A DAY TAKING VITAMIN D 1000 UNIT TABLET 1 TABLET ORALLY BID TAKING OMEPRAZOLE 40 MG CAPSULE DELAYED RELEASE 1 CAPSULE ORALLY BID TAKING MIRALAX - POWDER 1 PACKET MIXED WITH 8 OUNCES OF FLUID ORALLY BID(HAS BEEN ONLY TAKING IT DAILY) TAKING STIOLTO RESPIMAT 2.5-2.5 MCG/ACT AEROSOL SOLUTION 2 PUFFS INHALATION ONCE A DAY TAKING COLACE 100 MG CAPSULE 1 CAPSULE NEEDED ORALLY BID TAKING MECLIZINE HCL 12.5 MG TABLET 1 TABLET ORALLY THREE TIMES DAILY NEEDED TAKING BIOTIN 1 CAP ORALLY ONCE A DAY TAKING FERROUS SULFATE ER 142 (45 FE) MG TABLET EXTENDED RELEASE 1 TABLET ORALLY ONCE A DAY TAKING CALCIUM CITRATE 500 MG CAPSULE ORALLY BID TAKING ROPINIROLE HCL 0.5 MG TABLET TAKE ONE TABLET BY MOUTH THREE TIMES A DAY ORAL TAKING LINZESS 290 MCG CAPSULE 1 CAPSULE ORALLY ONCE A DAY, NOTES: NOT RECENTLY TAKING SULFASALAZINE 500 MG TABLET 1 TABLET ORALLY BID TAKING TRAMADOL HCL 50 MG TABLET 1 TAB ORALLY Q6H PRN MDD4 TAKING TRAZODONE HCL 100 MG TABLET 1 TABLET AT BEDTIME ORALLY ONCE A DAY TAKING TIZANIDINE HCL 2 MG TABLET 1 TABLET NEEDED ORALLY AT BEDTIME TAKING MELOXICAM 7.5 MG TABLET 1 TABLET ORALLY BID, NOTES: NOT RECENTLY TAKING TRIAMCINOLONE ACETONIDE 0.025 % CREAM 1 APPLICATION TO AFFECTED AREA EXTERNALLY TWICE A DAY NOT-TAKING VITAMIN D 25 MCG (1000 UT) TABLET 1 TABLET ORALLY TWICE DAILY NOT-TAKING PREVAGEN 10 MG CAPSULE 1 CAP ORALLY DAILY NOT-TAKING TYMLOS 3120 MCG/1.56ML SOLUTION PEN-INJECTOR DIRECTED SUBCUTANEOUS BEFORE BEDTIME NOT-TAKING MAY USE PILL MEDICAL MARIJUANA NOT-TAKING GABAPENTIN 300 MG CAPSULE 1 CAPSULE ORALLY Q8H TID NOT-TAKING RAMIPRIL 2.5 MG CAPSULE 1 CAPSULE ORALLY ONCE A DAY NOT-TAKING MORPHINE SULFATE ER 15 MG TABLET EXTENDED RELEASE 1 TABLET ORALLY DAILY NOT-TAKING CLOTRIMAZOLE 1 % CREAM 1 APPLICATION TO AFFECTED AREA EXTERNALLY TWICE A DAY NOT-TAKING ERGOCALCIFEROL 06132 UNIT CAPSULE 1 CAPSULE ORALLY WEEKLY NOT-TAKING CARAFATE 1 GM TABLET 1 TABLET ON AN EMPTY STOMACH ORALLY TWICE A DAY MEDICATION LIST REVIEWED AND RECONCILED WITH THE PATIENT PAST MEDICAL HISTORY GERD OSTEOPOROSIS HYPERLIPID CHRONIC PAIN CONSTIPATION PINCHED NERVE RESTLESS ARM SYNDROME CARPAL TUNNEL RIGHT LUPUS CABALLERO X 2 RIGHT LUNG CA RA(DR. SMITH) UT X2 (2003/2004) ALLERGIES GABAPENTIN: DIFFICULTY BREATHING - ALLERGY SOCIAL HISTORY GENERAL: TOBACCO USE ARE YOU A:CURRENT SMOKER ARE YOU INTERESTED IN QUITTING?NOT READY TO QUIT STATES SHE HAS CUT DOWN BUT THIS IS THE ONLY ENJOYMENT SHE GETS OUT OF LIFE. COUNSELED THE PATIENT ON SMOKING EFFECTS, EDUCATION [id number]/08/2021 HOW MANY CIGARETTES A DAY DO YOU SMOKE?11-20 HOW SOON AFTER YOU WAKE UP DO YOU SMOKE YOUR FIRST CIGARETTE?31-60 MIN HOW OFTEN DO YOU SMOKE CIGARETTES?EVERY DAY PATIENT COUNSELED ON THE DANGERS OF TOBACCO USE AND URGED TO QUIT:08/04/2020 SMOKING CESSATION INFORMATION GIVEN08/04/2020 LATEX QUESTIONNAIRE LATEX ALLERGY : HAVE YOU EVER DEVELOPED ANY TYPE OF REACTION AFTER HANDLING LATEX PRODUCTS SUCH RUBBER GLOVES, CONDOMS, DIAPHRAGMS, BALLOONS, SOCKS, OR UNDERWEAR?NO LATEX ALLERGY : HAVE YOU EVER DEVELOPED ANY TYPE OF REACTION DURING OR AFTER DENTAL APPOINTMENT, VAGINAL/RECTAL EXAMINATION, SURGICAL PROCEDURE, OR ANY OTHER EXPOSURE?NO LATEX RISK : HAVE YOU EVER HAD ANY DIFFICULTY BREATHING OR HIVES AFTER EATING OR HANDLING ANY FRUITS, OR VEGETABLES; SUCH KIWI, BANANAS, STONE FRUITS, OR CHESTNUTSNO LATEX RISK : DO YOU HAVE A PREVIOUS PERSONAL HISTORY OF MORE THAN NINE SURGERIES, SPINA BIFIDA, OR REPEATED CATHERIZATIONS? YES LATEX RISK : ARE YOU FREQUENTLY EXPOSED TO LATEX PRODUCTS IN YOUR OCCUPATION?NO DATE ASKED : 08/18/2020 ALCOHOL USE: NO. ALCOHOL SCREENING DID YOU HAVE A DRINK CONTAINING ALCOHOL IN THE PAST YEAR?NO POINTS0 INTERPRETATIONNEGATIVE RECREATIONAL DRUG USE DRUG USE?NO CAFFEINE CAFFEINE USE?YES HOW OFTEN AND HOW MUCH? 3-4 POTS COFFEE/DAY ORTHODOX [id number] SPIRITISM NO TAOIST BELIEFS THAT WOULD IMPACT HEALTH CARE. LANGUAGE LANGUAGES SPOKEN:SYRIAC LEARNING BARRIERS / SPECIAL NEEDS CHANGE FROM LAST VISIT?NO BARRIERS TO LEARNING?YES COMMENTS HAS PROBLEMS WITH REMEMBERING HEARING IMPAIRED?NO VISION IMPAIRED?YES :CORRECTIVE LENSES COGNITIVELY IMPAIRED?NO READINESS TO LEARN?YES LEARNING PREFERENCES?YES :DEMONSTRATION/VERBAL INSTRUCTION LEARNING CAPABILITIES PRESENT?YES EMOTIONAL BARRIERS?NO SPECIAL DEVICES?YES :CANE USES IT OCCASSIONALLY IMMIGRATION PARALEGAL NEEDED?NO DOMESTIC VIOLENCE DO YOU FEEL SAFE IN YOUR ENVIRONMENT?YES - PFS REFERRAL NEEDED?NO CLERGY REFERRAL NEEDED?NO PUBLIC HEALTH REFERRAL NEEDED?NO WAS THE PROVIDER NOTIFIED OF ANY PERTINENT INFO?YES N//A HAS THE PATIENT BEEN EDUCATED REGARDING HIS/HER PLAN OF CARE?YES HAS THE PATIENT BEEN EDUCATED REGARDING PAIN, THE RISK FOR PAIN, THE IMPORTANCE OF EFFECTIVE PAIN MANAGEMENT, AND THE PAIN ASSESSMENT PROCESS?YES ADVANCE DIRECTIVE ADVANCE DIRECTIVE DISCUSSED WITH PATIENT:YES HCP - MARY LAWSON (FRIEND) . PT REPORTS SHE HAS A DNR. REVIEW OF SYSTEMS CONSTITUTIONAL: ANY RECENT FEVER NO . CHILLS NO . WEIGHT CHANGE OF UNKNOWN REASONS NO . GASTROENTEROLOGY: NEW UNEXPLAINABLE CHANGES IN BOWEL CONTROL NO . CONSTIPATION NO . GENITOURINARY: ANY NEW CHANGE IN BLADDER CONTROL? NO . NEUROLOGY: NEW ONSET DIZZINESS OR NEUROLOGICAL CHANGES NOT MENTIONED NO . NEW NUMBNESS OR PAIN PATTERNS NOT MENTIONED AND PERTINENT TO TODAY'S VISIT NO . CARDIOLOGY: NEW CHEST PRESSURE NO . PATIENT DENIES NO . RESPIRATORY: UNEXPLAINABLE COUGH NO . NEW SHORTNESS OF BREATH NO . VITAL SIGNS WT 96.4 LBS, HT 56 IN, BMI 21.61 INDEX, BP 143/65 MM HG, HR 77 /MIN, RR 18 /MIN, TEMP 97.5 F, OXYGEN SAT % 95%, SAFE IN ENV? (Y/N) YES, NA INITIALS AW 0858T.GARY IVAN. EXAMINATION GENERAL EXAMINATION: GENERALAWAKE,ALERT ,PLEASANT . PSYCHAFFECT NORMAL . LUNGS:LUNG STEWARD ARE CLEAR TO AUSCULTATION BILATERALLY. GOOD MOVEMENT OF AIR . HEART:S1, S2 IN A REGULAR RATE AND RHYTHM. NO SIGNIFICANT MURMURS, RUBS OR GALLOPS NOTED . ASSESSMENTS OTHER CHRONIC PAIN - G89.29 (PRIMARY) CERVICAL DISC DISORDER WITH RADICULOPATHY OF CERVICAL REGION - M50.10 TREATMENT OTHER CHRONIC PAIN REFILL TRAMADOL HCL TABLET, 50 MG, 1 TAB, ORALLY, Q6H PRN MDD4, 30 DAYS, 120, REFILLS 2 REFILL TIZANIDINE HCL TABLET, 2 MG, 1 TABLET NEEDED, ORALLY, AT BEDTIME, 30 DAYS, 30, REFILLS 2 PAIN PROCEDURE LOGDATE OF PROCEDURE1PROCEDURE:CERVICAL EPIDURAL STEROID INJECTIONAMOUNT OF PRE SEDATENORCO 5-325MGRESULT:MARKED REDUCTION IN PAIN CONTINUES TODAY PROCEDURE CODES FA211 ESTABILISHED PATIENT [facility] CHARGE DISPOSITION & COMMUNICATION FOLLOW UP 3 MONTHS (REASON: MED MGMNT,UTOX,RESPONDS WELL TO CHANTAL) ELECTRONICALLY SIGNED BY ZULEYMA SWANSON ON 08/20/2020 AT 08:38 AM EDT DISCLAIMER : THIS IS A VISIT SUMMARY EXTRACTED FROM THE [employer] CHART. IT IS NOT A COPY OF THE [employer] PROGRESS NOTE. RIZWANA
== END ==
LOC: M PAIN 09:15
PROVIDERS: ATTEND Nurse Practitioner Family
DX: M50.10 Cervical disc disorder with radiculopathy, unspecified cervical region (principal); G89.29 Other chronic pain; K21.9 Gastro-esophageal reflux disease without esophagitis; I25.2 Old myocardial infarction; F17.210 Nicotine dependence, cigarettes, uncomplicated; Z88.8 Allergy status to other drugs, medicaments and biological substances; Z79.82 Long term (current) use of aspirin; Z79.891 Long term (current) use of opiate analgesic; Z79.899 Other long term (current) drug therapy

== ENCOUNTER → 2020-09-08 | Outpatient (CLI) | payer MEDICARE ==
[~2020-09-08] MED LIST changes: +OMEP40CA4 PO; -OMEP40CA97 PO
--- NOTE | 2020-09-10 00:01 | ECWPNPC ---
PATIENT NAME: MARY PEÑA : 1950 GENDER: FEMALE VISIT DATE: 09/08/2020 DISCHARGE DATE: 09/08/20 1114 VISIT LOCKED DATE TIME: PHYSICIAN: BARRY DUMONT RESOURCE: BARRY DUMONT REASON FOR APPOINTMENT 1. CONSIDER CHANTAL AFTER REVIEW MED CLEARANCE/F/U TIZANIDINE HISTORY OF PRESENT ILLNESS GENERAL: HERE FOR FOLLOW-UP TODAY OF CHRONIC NECK AND LOW BACK PAIN. OVER THE PAST FEW WEEKS SHE HAS HAD SEVERE INCREASE IN RIGHT LOW BACK PAIN WITH SCIATICA. HAS RESPONDED WELL TO SACROILIAC JOINT BLOCK IN THE PAST. TODAY SHE IS REPORTING SIGNIFICANT INCREASE IN SHORTNESS OF BREATH OVER THE PAST WEEK. STATES SHE HAS TO SIT DOWN AND CANNOT WALK VERY FAR DUE TO SHORTNESS OF BREATH. SHE IS WILLING TO CALL DR. ANN HER PRIMARY CARE PROVIDER TODAY TO REPORT THE SYMPTOMS AND TO SEE IF HE WOULD LIKE TO SEE HER. WE DISCUSSED DOING SACROILIAC JOINT BLOCK ONCE SHE IS MEDICALLY STABLE. -. FALL RISK SCREENING: SCREENING : NO FALLS REPORTED IN THE LAST YEAR. PAIN SCREENING: PATIENT HAS A COMPLAINT OF ACUTE OR CHRONIC PAIN :YES LOCATION OF PAIN:NECK INTENSITY OF PAIN (SCALE OF 1 TO 10):0 WHAT DOES YOUR PAIN FEEL LIKE:OTHER NOT IN ANY PAIN RIGHT NOW DURATION:ONLY WITH SPECIFIC ACTIVITIES PAIN IS INCREASED BY:ACTIVITIES PAIN IS DECREASED BY:USE OF PAIN MEDICATIONS NURSING NOTE: -. PAIN CENTER INTAKE QUESTIONS: DO YOU HAVE A HISTORY OF MRSA? :NO DO YOU TAKE A BLOOD THINNERS? :NO APSIN 81MG DO YOU HAVE ANY BLEEDING DISORDERS? :NO ANY NEW NUMBNESS OR WEAKNESS IN YOUR LEGS OR ARMS? :NO RIGHT ARM CAN NOT KEEP IT STILL ANY PACEMAKER,DEFIBRILLATOR, OR DORSAL COLUMN STIMULATOR? :NO DO YOU HAVE ANY RASHES OR OPEN SORES? :NO ARE YOU ALLERGIC TO IV DYE? :NO ARE YOU DIABETIC? :NO ANY NEW PROBLEMS WITH YOUR MEDICATIONS? :NO HAVE YOU RECEIVED A VACCINE IN THE PAST 30 DAYS? :YES IF SO WHAT VACCINE AND WHEN? 2ND COVID SHOT 06/15/2020 DO YOU PLAN TO RECEIVE A VACCINE IN THE NEXT 21 DAYS? :NO DO YOU NEED ANY PRESCRIPTION? :NO TRAZADONE HCL 100 MG DO YOU TAKE ANY IMMUNOSUPPRESSIVE MEDICATIONS? :NO IS THERE A CHANCE YOU COULD BE ? :NO ARE YOU BREAST FEEDING? :NO CURRENT MEDICATIONS TAKING CYMBALTA 60 MG CAPSULE DELAYED RELEASE PARTICLES 1 CAPSULE ORALLY ONCE A DAY TAKING METOPROLOL SUCCINATE ER 25 MG TABLET EXTENDED RELEASE 24 HOUR 1/2 TABLET ORALLY BID TAKING ASPIR-81 81 MG TABLET DELAYED RELEASE 1 TABLET ORALLY ONCE A DAY TAKING VITAMIN D 1000 UNIT TABLET 1 TABLET ORALLY BID TAKING OMEPRAZOLE 40 MG CAPSULE DELAYED RELEASE 1 CAPSULE ORALLY BID TAKING MIRALAX - POWDER 1 PACKET MIXED WITH 8 OUNCES OF FLUID ORALLY BID(HAS BEEN ONLY TAKING IT DAILY) TAKING STIOLTO RESPIMAT 2.5-2.5 MCG/ACT AEROSOL SOLUTION 2 PUFFS INHALATION ONCE A DAY TAKING COLACE 100 MG CAPSULE 1 CAPSULE NEEDED ORALLY BID TAKING MECLIZINE HCL 12.5 MG TABLET 1 TABLET ORALLY THREE TIMES DAILY NEEDED TAKING BIOTIN 1 CAP ORALLY ONCE A DAY TAKING FERROUS SULFATE ER 142 (45 FE) MG TABLET EXTENDED RELEASE 1 TABLET ORALLY ONCE A DAY TAKING CALCIUM CITRATE 500 MG CAPSULE ORALLY BID TAKING ROPINIROLE HCL 0.5 MG TABLET TAKE ONE TABLET BY MOUTH THREE TIMES A DAY ORAL TAKING LINZESS 290 MCG CAPSULE 1 CAPSULE ORALLY ONCE A DAY, NOTES: NOT RECENTLY TAKING TRAZODONE HCL 100 MG TABLET 1 TABLET AT BEDTIME ORALLY ONCE A DAY TAKING MELOXICAM 7.5 MG TABLET 1 TABLET ORALLY BID, NOTES: NOT RECENTLY TAKING TRIAMCINOLONE ACETONIDE 0.025 % CREAM 1 APPLICATION TO AFFECTED AREA EXTERNALLY TWICE A DAY TAKING TRAMADOL HCL 50 MG TABLET 1 TAB ORALLY Q6H PRN MDD4 TAKING TIZANIDINE HCL 2 MG TABLET 1 TABLET NEEDED ORALLY AT BEDTIME TAKING SULFASALAZINE 500 MG TABLET 1 TABLET ORALLY BID NOT-TAKING VITAMIN D 25 MCG (1000 UT) TABLET 1 TABLET ORALLY TWICE DAILY NOT-TAKING PREVAGEN 10 MG CAPSULE 1 CAP ORALLY DAILY NOT-TAKING TYMLOS 3120 MCG/1.56ML SOLUTION PEN-INJECTOR DIRECTED SUBCUTANEOUS BEFORE BEDTIME NOT-TAKING MAY USE PILL MEDICAL MARIJUANA NOT-TAKING GABAPENTIN 300 MG CAPSULE 1 CAPSULE ORALLY Q8H TID NOT-TAKING RAMIPRIL 2.5 MG CAPSULE 1 CAPSULE ORALLY ONCE A DAY NOT-TAKING MORPHINE SULFATE ER 15 MG TABLET EXTENDED RELEASE 1 TABLET ORALLY DAILY NOT-TAKING CLOTRIMAZOLE 1 % CREAM 1 APPLICATION TO AFFECTED AREA EXTERNALLY TWICE A DAY NOT-TAKING ERGOCALCIFEROL 59128 UNIT CAPSULE 1 CAPSULE ORALLY WEEKLY NOT-TAKING CARAFATE 1 GM TABLET 1 TABLET ON AN EMPTY STOMACH ORALLY TWICE A DAY MEDICATION LIST REVIEWED AND RECONCILED WITH THE PATIENT PAST MEDICAL HISTORY GERD OSTEOPOROSIS HYPERLIPID CHRONIC PAIN CONSTIPATION PINCHED NERVE RESTLESS ARM SYNDROME CARPAL TUNNEL RIGHT LUPUS CABALLERO X 2 RIGHT LUNG CA RA(DR. SMITH) CA X2 () ALLERGIES GABAPENTIN: DIFFICULTY BREATHING - ALLERGY SURGICAL HISTORY CSECTION 1974 HYSTERECTOMY 1974 CHOLECYSTECTOMY 2008 LASER DISKECTOMYVAT L5-S1 2007 FAMILY HISTORY FATHER: 68 YRS, DIAGNOSED WITH HYPERTENSION, UNSPECIFIED HEART DISEASE MOTHER: , OTHER SPECIFIED CONDITIONS INFLUENCING HEALTH STATUS 1 BROTHER(S) , 5 SISTER(S) . 2 SON(S) . 1 SISTER IS - CAR ACCIDENT ONE BROTHER IS - DIABETES AND HEART ISSUES ONE SON FROM CAR ACCIDENT\NMOTHER--COPDNO KNOWN FAMILY HX OF RHEUMATIC ILLNESSES NO KNOWN UROLOGIAL ISSUES IN FAM. SOCIAL HISTORY GENERAL: TOBACCO USE ARE YOU A:CURRENT SMOKER ARE YOU INTERESTED IN QUITTING?NOT READY TO QUIT STATES SHE HAS CUT DOWN BUT THIS IS THE ONLY ENJOYMENT SHE GETS OUT OF LIFE. COUNSELED THE PATIENT ON SMOKING EFFECTS, EDUCATION [id number]/29/2021 HOW MANY CIGARETTES A DAY DO YOU SMOKE?11-20 HOW SOON AFTER YOU WAKE UP DO YOU SMOKE YOUR FIRST CIGARETTE?31-60 MIN HOW OFTEN DO YOU SMOKE CIGARETTES?EVERY DAY PATIENT COUNSELED ON THE DANGERS OF TOBACCO USE AND URGED TO QUIT:09/08/2020 SMOKING CESSATION INFORMATION GIVEN08/04/2020 LATEX QUESTIONNAIRE LATEX ALLERGY : HAVE YOU EVER DEVELOPED ANY TYPE OF REACTION AFTER HANDLING LATEX PRODUCTS SUCH RUBBER GLOVES, CONDOMS, DIAPHRAGMS, BALLOONS, SOCKS, OR UNDERWEAR?NO LATEX ALLERGY : HAVE YOU EVER DEVELOPED ANY TYPE OF REACTION DURING OR AFTER DENTAL APPOINTMENT, VAGINAL/RECTAL EXAMINATION, SURGICAL PROCEDURE, OR ANY OTHER EXPOSURE?NO LATEX RISK : HAVE YOU EVER HAD ANY DIFFICULTY BREATHING OR HIVES AFTER EATING OR HANDLING ANY FRUITS, OR VEGETABLES; SUCH KIWI, BANANAS, STONE FRUITS, OR CHESTNUTSNO LATEX RISK : DO YOU HAVE A PREVIOUS PERSONAL HISTORY OF MORE THAN NINE SURGERIES, SPINA BIFIDA, OR REPEATED CATHERIZATIONS? NO LATEX RISK : ARE YOU FREQUENTLY EXPOSED TO LATEX PRODUCTS IN YOUR OCCUPATION?NO DATE ASKED : 09/08/2020 ALCOHOL USE: NO. ALCOHOL SCREENING DID YOU HAVE A DRINK CONTAINING ALCOHOL IN THE PAST YEAR?NO POINTS0 INTERPRETATIONNEGATIVE RECREATIONAL DRUG USE DRUG USE?NO CAFFEINE CAFFEINE USE?YES HOW OFTEN AND HOW MUCH? 3-4 POTS COFFEE/DAY [employer]RIAN [id number] ANABAPTISM NO [employer] BELIEFS THAT WOULD IMPACT HEALTH CARE. LANGUAGE LANGUAGES SPOKEN:SINGAPOREAN LEARNING BARRIERS / SPECIAL NEEDS CHANGE FROM LAST VISIT?NO BARRIERS TO LEARNING?YES COMMENTS HAS PROBLEMS WITH REMEMBERING HEARING IMPAIRED?NO VISION IMPAIRED?YES :CORRECTIVE LENSES COGNITIVELY IMPAIRED?NO READINESS TO LEARN?YES LEARNING PREFERENCES?YES :DEMONSTRATION/VERBAL INSTRUCTION LEARNING CAPABILITIES PRESENT?YES EMOTIONAL BARRIERS?NO SPECIAL DEVICES?YES :CANE USES IT OCCASSIONALLY PRIVATE EYE NEEDED?NO DOMESTIC VIOLENCE DO YOU FEEL SAFE IN YOUR ENVIRONMENT?YES - PFS REFERRAL NEEDED?NO CLERGY REFERRAL NEEDED?NO PUBLIC HEALTH REFERRAL NEEDED?NO WAS THE PROVIDER NOTIFIED OF ANY PERTINENT INFO?YES N//A HAS THE PATIENT BEEN EDUCATED REGARDING HIS/HER PLAN OF CARE?YES HAS THE PATIENT BEEN EDUCATED REGARDING PAIN, THE RISK FOR PAIN, THE IMPORTANCE OF EFFECTIVE PAIN MANAGEMENT, AND THE PAIN ASSESSMENT PROCESS?YES ADVANCE DIRECTIVE ADVANCE DIRECTIVE DISCUSSED WITH PATIENT:YES HCP - MARY LAWSON (FRIEND) . PT REPORTS SHE HAS A DNR. HOSPITALIZATION/MAJOR DIAGNOSTIC PROCEDURE CSECTION AND HYSTERECTOMY CA 2004 CHILD REVIEW OF SYSTEMS CONSTITUTIONAL: ANY RECENT FEVER NO . CHILLS NO . WEIGHT CHANGE OF UNKNOWN REASONS NO . GASTROENTEROLOGY: NEW UNEXPLAINABLE CHANGES IN BOWEL CONTROL NO . CONSTIPATION NO . GENITOURINARY: ANY NEW CHANGE IN BLADDER CONTROL? NO . NEUROLOGY: NEW ONSET DIZZINESS OR NEUROLOGICAL CHANGES NOT MENTIONED NO . NEW NUMBNESS OR PAIN PATTERNS NOT MENTIONED AND PERTINENT TO TODAY'S VISIT NO . CARDIOLOGY: NEW CHEST PRESSURE NO . PATIENT DENIES NO . RESPIRATORY: UNEXPLAINABLE COUGH NO . NEW SHORTNESS OF BREATH YES SEE HPI . VITAL SIGNS WT 94.4 LBS, HT 56 IN, BMI 21.16 INDEX, BP 146/72 MM HG, HR 83 /MIN, RR 16 /MIN, TEMP 96.4 F, OXYGEN SAT % 95%, SAFE IN ENV? (Y/N) YES, NA INITIALS SD 10:42T.GARY IVAN. EXAMINATION GENERAL EXAMINATION: LUNGS:TACHYPNEIC, SHALLOW BREATH SOUNDS IN THE BASES. HEART:NO MURMURS, REGULAR RATE AND RHYTHM. LUMBAR:SPECIFIC POINT TENDERNESS NOTED OVER RIGHT SIJ. POSITIVE MELANY'S TESTING OVER RIGHT SIJ.. ASSESSMENTS SACROILIITIS, NOT ELSEWHERE CLASSIFIED - M46.1 (PRIMARY) TREATMENT SACROILIITIS, NOT ELSEWHERE CLASSIFIED NOTES: PATIENT WILL FOLLOW UP WITH DR. ANN IN REGARDS TO NEW ONSET OF SHORTNESS OF BREATH OVER THE PAST 2 WEEKS. FOLLOW-UP WILL BE SCHEDULED AT THE PAIN CENTER IN 2 TO 3 WEEKS TO CONSIDER RIGHT SACROILIAC JOINT BLOCK ONCE MEDICALLY STABILIZED. PROCEDURE CODES FA211 ESTABILISHED PATIENT [facility] CHARGE DISPOSITION & COMMUNICATION FOLLOW UP 2 TO 3 WEEKS (REASON: CONSIDER RIGHT SIJ ONCE MEDICALLY STABILIZED) ELECTRONICALLY SIGNED BY ZULEYMA SWANSON ON 09/09/2020 AT 02:09 PM EDT DISCLAIMER : THIS IS A VISIT SUMMARY EXTRACTED FROM THE [employer] CHART. IT IS NOT A COPY OF THE [employer] PROGRESS NOTE. RIZWANA
== END ==
LOC: M PAIN 10:45
PROVIDERS: ATTEND Nurse Practitioner Family
DX: M46.1 Sacroiliitis, not elsewhere classified (principal); G89.29 Other chronic pain; K21.9 Gastro-esophageal reflux disease without esophagitis; I25.2 Old myocardial infarction; F17.210 Nicotine dependence, cigarettes, uncomplicated; Z88.8 Allergy status to other drugs, medicaments and biological substances; Z79.82 Long term (current) use of aspirin; Z79.891 Long term (current) use of opiate analgesic; Z79.899 Other long term (current) drug therapy

== ENCOUNTER → 2020-11-02 | Outpatient (REF) | payer MEDICARE ==
[2020-11-02 17:57] LABS: BLOOD UREA NITROGEN 15 MG/DL (7-18); CREATININE FOR GFR 0.96 MG/DL (0.55-1.30); GLOMERULAR FILTRATION RATE > 60.0 (>45)
== END ==
LOC: M LAB REF 16:55
PROVIDERS: ATTEND Internal Medicine Pulmonary Disease
DX: R06.02 Shortness of breath (principal)

== ENCOUNTER → 2020-11-12 | Outpatient (CLI) | payer MEDICARE ==
[~2020-11-12] MED LIST changes: +ISOVUE-370 76% 100ML VIAL As Ordered ONE
--- NOTE | 2020-11-12 10:21 | REP ---
INDICATION: SOB COMPARISON: None. TECHNIQUE: Axial contrast enhanced images from the thoracic inlet to the upper abdomen using pulmonary embolus technique with multiplanar re-formations. 75 ml Isovue 370 intravenous contrast material administered without complication. This CT examination was performed using the following dose reduction techniques: Automated exposure control, adjustment of mA and/or kv according to the patient's size, and use of iterative reconstruction technique. FINDINGS: Satisfactory enhancement of the pulmonary vasculature is achieved and no filling defects are identified to suggest pulmonary embolus. Further evaluation of the mediastinum demonstrates atherosclerotic changes to the thoracic aorta without aneurysm or dissection. Heart and pericardium are normal. The lung rodriguez demonstrate diffuse chronic interstitial changes. There is a focal paraspinal density along the medial aspect of the right lower lung with adjacent surgical clips which has increased from 01/22/2020 and concerning for possible recurrence if this represented a site of malignancy. Area of density measures approximately 2.2 x 1.1 cm (series 402; image 36). There also appears to be a suspected 6 mm nodule in the anterior aspect of the suspected right middle lobe (series 402; image 54) and small amounts of scattered interstitial airspace disease. No effusion. No pneumothorax. No obvious adenopathy. Hiatal hernia noted. Musculoskeletal structures demonstrate age-related degenerative changes. Upper abdomen demonstrates normal bilateral adrenal glands. IMPRESSION: 1. No evidence for pulmonary embolus. 2. Suspicious area of increased density along the medial right lower lobe as well as 6 mm nodule in the anterior right middle lobe concerning for recurrence/metastatic disease. Correlation and follow-up is required. Consider PET-CT if necessary. <Electronically signed by Conrado Trejo > 11/12/20 [id number]
== END ==
LOC: M RAD 08:57
PROVIDERS: ATTEND Internal Medicine Pulmonary Disease
DX: R06.02 Shortness of breath (principal)
CPT/HCPCS: 71275; Q9967

== ENCOUNTER → 2020-11-13 | Outpatient (CLI) | payer MEDICARE ==
[~2020-11-13] MED LIST changes: -ISOVUE-370 76% 100ML VIAL As Ordered ONE
[2020-11-13 13:00] LABS: ABG BASE EXCESS -0.8 (-2.0-2.0); ABG HCO3 22.4 MEQ/L (22.0-26.0); ABG O2 SATURATION 96.2 % (95.0-99.0); ABG PARTIAL PRESSURE CO2 33.5 mmHg (35.0-45.0); ABG PARTIAL PRESSURE O2 79.4 mmHg (75.0-100.0); ABG STANDARD HCO3 23.8 MEQ/L (22.0-26.0); ABG TOTAL CO2 23.5 MEQ/L (23.0-31.0); ABG pH (ARTERIAL) 7.444 UNITS (7.350-7.450)
== END ==
LOC: M LAB 12:28
PROVIDERS: ATTEND Internal Medicine Pulmonary Disease
DX: J43.1 Panlobular emphysema (principal)

== ENCOUNTER → 2020-12-07 | Outpatient (CLI) | payer MEDICARE, MEDICAID ==
--- NOTE | 2020-12-07 18:58 | REP ---
INDICATION: DIAGNOSING RIGHT LOWER LOBE LUNG CA. COMPARISON: Comparison PET-CT study July 09, 2019. Comparison chest CT November 12, 2020 and July 15, 2020. TECHNIQUE: Forty-five minutes following the intravenous injection of a 8.66 mCi dose of F-18 FDG, three-dimensional PET scintigraphy is acquired from the skull base to the proximal thighs. Triplanar noncontrast CT scanning is acquired through the same anatomic range for attenuation correction, and image registration with scan parameters optimized to minimize radiation exposure to the patient. PET scintigraphy and CT datasets were fused and displayed on a workstation with multiplanar and projection display capability. FINDINGS: There is normal variant skeletal muscle uptake in the muscles of mastication and along the left chest wall and shoulder. Head and neck soft tissues are otherwise unremarkable. In the abdomen and pelvis, normal hepatic, splenic, gastrointestinal, and genitourinary FDG accumulation is seen. No abnormal abdominal or pelvic hypermetabolic uptake focus is seen. Incidental findings include markedly exaggerated thoracic kyphosis and cervical lordosis with multiple osteoporotic wedge compression deformities in the vertebral column. In the thorax, the recently identified 6 mm right middle lobe nodule shows visible metabolic activity, maximum standard uptake value is not hypermetabolic however, 1.13. The pleural based opacity in the posteromedial right lower lobe with adjacent fiducial markers shows mildly increased uptake as well, maximum standard uptake value is also not in the hypermetabolic range, SUV 2.12. On the previous PET scintigraphy, maximum standard uptake value here was 2.06. The opacity is less rounded today. This adenocarcinoma lesion is status post SBRT and the some localized post radiation change. No other suspicious hypermetabolic uptake is seen in the lung rodriguez. Parenchymal opacity is compatible IMPRESSION: The recently identified 6 mm nodule in the right middle lobe shows visible but non hypermetabolic uptake. Changes consistent with post radiation change in the right lower lobe. There is residual non hypermetabolic uptake, 2.12 at this site. <Electronically signed by Atitla Harvey > 12/07/20 [id number]
== END ==
LOC: M PLARAD 13:56
PROVIDERS: ATTEND Internal Medicine Pulmonary Disease
DX: C34.2 Malignant neoplasm of middle lobe, bronchus or lung (principal)
CPT/HCPCS: 78815; A9552

== ENCOUNTER → 2020-12-29 | Outpatient (CLI) | payer MEDICARE ==
[~2020-12-29] MED LIST changes: +CYMB60CA4 PO
== END ==
LOC: M PAIN 09:30
PROVIDERS: ATTEND Anesthesiology
DX: M51.16 Intervertebral disc disorders with radiculopathy, lumbar region (principal); M79.10 Myalgia, unspecified site; K21.9 Gastro-esophageal reflux disease without esophagitis; I25.2 Old myocardial infarction; F17.210 Nicotine dependence, cigarettes, uncomplicated; Z88.8 Allergy status to other drugs, medicaments and biological substances; Z79.82 Long term (current) use of aspirin; Z79.891 Long term (current) use of opiate analgesic; Z79.899 Other long term (current) drug therapy

== ENCOUNTER → 2021-01-08 | Outpatient (CLI) | payer MEDICARE ==
--- NOTE | 2021-01-11 20:24 | SLEEPCENT ---
NOCTURNAL POLYSOMNOGRAPHY DATE: 01/08/2021 ORDERED BY: Armida Ravi MD Nocturnal polysomnography was performed for evaluation of sleep physiology in this patient with a history of disrupted sleep and vivid dreams. 7 hours and 56 minutes of data were reviewed. There were 328.5 minutes of sleep identified. Sleep latency was mildly prolonged at 23.5 minutes. REM latency was further prolonged at 159 minutes. Sleep architecture was good with 4-5 REM cycles late in the study. Overall sleep efficiency was 76.8%. The electrocardiogram showed a sinus rhythm with an average heart rate of 60 beats per minute; rate range 50 to 70. EEG showed reasonably normal waveforms for wake and sleep. There was some alpha intrusion into the non-REM stages more so, but no focal events were identified. There were 41 respiratory events identified of 10 seconds in duration or greater for an apnea-hypopnea index of 6.9. The events were obstructive, more frequent in stage REM, but not exclusive to that stage and not posturally related. Snoring was noted over the study and the overall respiratory related arousal index was three times per hour. Baseline oxygen saturation was acceptable. Oxygen desaturations into the mid 80s was seen repeatedly. There was minor limb activity. Limb movement arousal index was 4.2. IMPRESSION: Obstructive sleep apnea syndrome (G47.33), apnea-hypopnea index 6.9. RECOMMENDATION: The patient should be encouraged to return to the [facility] for pressure therapy. In the interim, alcohol and sedative avoidance should be practiced and caution exercised during the operation of motor vehicles.
== END ==
LOC: M SLEEP 20:00
PROVIDERS: ATTEND Internal Medicine Pulmonary Disease
DX: G47.30 Sleep apnea, unspecified (principal)

== ENCOUNTER → 2021-01-14 | Outpatient (CLI) | payer MEDICARE | LOC: M LABSMTC 11:34 | PROVIDERS: ATTEND Anesthesiology | DX: Z01.812 Encounter for preprocedural laboratory examination (principal); Z20.822 Contact with and (suspected) exposure to COVID-19 ==

== ENCOUNTER → 2021-01-15 | Outpatient (CLI) | payer MEDICARE | LOC: M PAIN 10:45 | PROVIDERS: ATTEND Anesthesiology | DX: M51.16 Intervertebral disc disorders with radiculopathy, lumbar region (principal); G89.29 Other chronic pain; K21.9 Gastro-esophageal reflux disease without esophagitis; I25.2 Old myocardial infarction; F17.210 Nicotine dependence, cigarettes, uncomplicated; Z88.8 Allergy status to other drugs, medicaments and biological substances; Z79.82 Long term (current) use of aspirin; Z79.891 Long term (current) use of opiate analgesic; Z79.899 Other long term (current) drug therapy ==

== ENCOUNTER → 2021-01-19 | Outpatient (CLI) | payer MEDICARE ==
[~2021-01-19] MED LIST changes: +BUPIVACAINE HCL 0.25% 10ML VIAL As Ordered ONE; +BUPIVACAINE HCL 0.25% 30ML VIAL As Ordered ONE; +TRIAMCINOLONE ACETONIDE SUSP 40 MG/ML VIAL (J3301) As Ordered ONE
== END ==
LOC: M PAIN 11:20
PROVIDERS: ATTEND Anesthesiology
DX: M79.18 Myalgia, other site (principal); K21.9 Gastro-esophageal reflux disease without esophagitis; I25.2 Old myocardial infarction; F17.210 Nicotine dependence, cigarettes, uncomplicated; Z88.8 Allergy status to other drugs, medicaments and biological substances; Z79.82 Long term (current) use of aspirin; Z79.891 Long term (current) use of opiate analgesic; Z79.899 Other long term (current) drug therapy
CPT/HCPCS: 20552; J3301

== ENCOUNTER → 2021-02-12 | Outpatient (CLI) | payer MEDICARE ==
[~2021-02-12] MED LIST changes: -BUPIVACAINE HCL 0.25% 10ML VIAL As Ordered ONE; -BUPIVACAINE HCL 0.25% 30ML VIAL As Ordered ONE; -TRIAMCINOLONE ACETONIDE SUSP 40 MG/ML VIAL (J3301) As Ordered ONE
== END ==
LOC: M PAIN 10:30
PROVIDERS: ATTEND Anesthesiology
DX: M47.812 Spondylosis without myelopathy or radiculopathy, cervical region (principal); M79.18 Myalgia, other site; K21.9 Gastro-esophageal reflux disease without esophagitis; I25.2 Old myocardial infarction; F17.210 Nicotine dependence, cigarettes, uncomplicated; Z88.8 Allergy status to other drugs, medicaments and biological substances; Z79.82 Long term (current) use of aspirin; Z79.891 Long term (current) use of opiate analgesic; Z79.899 Other long term (current) drug therapy

== ENCOUNTER → 2021-04-01 | Outpatient (CLI) | payer MEDICARE ==
[~2021-04-01] MED LIST changes: +GASTROGRAFIN SOLUTION 30ML (Q9963) As Ordered ONE; +ISOVUE-370 76% 100ML VIAL As Ordered ONE; -LEVO500T3 PO; +LEVO500T4 PO
== END ==
LOC: M RAD 13:52
PROVIDERS: ATTEND Surgery
DX: K56.609 Unspecified intestinal obstruction, unspecified as to partial versus complete obstruction (principal)
CPT/HCPCS: 74177; Q9963; Q9967

== ENCOUNTER → 2021-04-27 | Outpatient (CLI) | payer MEDICARE ==
[~2021-04-27] MED LIST changes: -GASTROGRAFIN SOLUTION 30ML (Q9963) As Ordered ONE; -ISOVUE-370 76% 100ML VIAL As Ordered ONE
== END ==
LOC: M RAD 09:03
PROVIDERS: ATTEND Internal Medicine Pulmonary Disease
DX: R91.8 Other nonspecific abnormal finding of lung field (principal)

== ENCOUNTER → 2021-05-05 | Outpatient (CLI) | payer MEDICARE | LOC: M PAIN 11:30 | PROVIDERS: ATTEND Anesthesiology | DX: M54.2 Cervicalgia (principal); M79.18 Myalgia, other site; K21.9 Gastro-esophageal reflux disease without esophagitis; I25.2 Old myocardial infarction; F17.210 Nicotine dependence, cigarettes, uncomplicated; Z88.8 Allergy status to other drugs, medicaments and biological substances; Z79.82 Long term (current) use of aspirin; Z79.891 Long term (current) use of opiate analgesic; Z79.899 Other long term (current) drug therapy ==

== ENCOUNTER → 2021-08-15 | Outpatient (CLI) | payer MEDICARE ==
[~2021-08-15] MED LIST changes: -D31000TA2 PO; +VITA100093 PO
== END ==
LOC: M LABSMTC 10:19
PROVIDERS: ATTEND Anesthesiology
DX: Z01.812 Encounter for preprocedural laboratory examination (principal); Z20.822 Contact with and (suspected) exposure to COVID-19

== ENCOUNTER → 2021-08-19 | Outpatient (CLI) | payer MEDICARE ==
[~2021-08-19] MED LIST changes: +BUPIVACAINE HCL 0.25% 10ML VIAL As Ordered ONE; +BUPIVACAINE HCL 0.25% 30ML VIAL As Ordered ONE; +TRIAMCINOLONE ACETONIDE SUSP 40 MG/ML VIAL (J3301) As Ordered ONE
== END ==
LOC: M PAIN 08:30
PROVIDERS: ATTEND Anesthesiology
DX: M79.18 Myalgia, other site (principal); K21.9 Gastro-esophageal reflux disease without esophagitis; I25.2 Old myocardial infarction; F17.210 Nicotine dependence, cigarettes, uncomplicated; Z88.8 Allergy status to other drugs, medicaments and biological substances; Z79.82 Long term (current) use of aspirin; Z79.891 Long term (current) use of opiate analgesic; Z79.899 Other long term (current) drug therapy
CPT/HCPCS: 20552; J3301

== ENCOUNTER → 2021-09-28 | Outpatient (CLI) | payer MEDICARE ==
[~2021-09-28] MED LIST changes: +ASPI81CH33 PO; -BUPIVACAINE HCL 0.25% 10ML VIAL As Ordered ONE; -BUPIVACAINE HCL 0.25% 30ML VIAL As Ordered ONE; +LEVO1TAB39 PO; -LEVO500T4 PO; -TRIAMCINOLONE ACETONIDE SUSP 40 MG/ML VIAL (J3301) As Ordered ONE
== END ==
LOC: M PAIN 09:30
PROVIDERS: ATTEND Nurse Practitioner Family
DX: M79.10 Myalgia, unspecified site (principal); G89.29 Other chronic pain; I25.2 Old myocardial infarction; K21.9 Gastro-esophageal reflux disease without esophagitis; F17.210 Nicotine dependence, cigarettes, uncomplicated; Z88.8 Allergy status to other drugs, medicaments and biological substances; Z79.82 Long term (current) use of aspirin; Z79.899 Other long term (current) drug therapy

== ENCOUNTER → 2021-11-01 | Outpatient (CLI) | payer MEDICARE, MEDICAID | LOC: M PLARAD 10:31 | PROVIDERS: ATTEND Internal Medicine Pulmonary Disease | DX: C34.31 Malignant neoplasm of lower lobe, right bronchus or lung (principal) | CPT/HCPCS: 78815; A9552 ==

== ENCOUNTER → 2021-12-22 | Outpatient (CLI) | payer MEDICARE ==
[~2021-12-22] MED LIST changes: -DULE200A IN; +MOME13HF7 IN
== END ==
LOC: M PAIN 14:00
PROVIDERS: ATTEND Nurse Practitioner Family
DX: M79.10 Myalgia, unspecified site (principal); G89.29 Other chronic pain; I25.2 Old myocardial infarction; K21.9 Gastro-esophageal reflux disease without esophagitis; F17.210 Nicotine dependence, cigarettes, uncomplicated; Z88.8 Allergy status to other drugs, medicaments and biological substances; Z79.82 Long term (current) use of aspirin; Z79.899 Other long term (current) drug therapy

== ENCOUNTER → 2022-03-16 | Outpatient (CLI) | payer MEDICARE | LOC: M PLAIMG 10:12 | PROVIDERS: ATTEND Internal Medicine Pulmonary Disease | DX: C34.31 Malignant neoplasm of lower lobe, right bronchus or lung (principal) ==

== ENCOUNTER → 2022-10-19 | Outpatient (CLI) | payer MEDICARE, MEDICAID | LOC: M RAD 15:09 | PROVIDERS: ATTEND Internal Medicine Pulmonary Disease | DX: J43.1 Panlobular emphysema (principal) ==

== ENCOUNTER → 2023-05-11 | Outpatient (CLI) | payer MEDICARE, MEDICAID ==
[~2023-05-11] MED LIST changes: +MECL-209 PO; -MECL1TAB31 PO
== END ==
LOC: M RAD 09:11
PROVIDERS: ATTEND Internal Medicine Pulmonary Disease
DX: C34.31 Malignant neoplasm of lower lobe, right bronchus or lung (principal)

== ENCOUNTER → 2023-06-01 | Outpatient (CLI) | payer MEDICARE, MEDICAID ==
[~2023-06-01] MED LIST changes: +BUDE10.7 INH; +CYMB1CAP5 PO; +HYDR50TA70 PO; +TIZA10TA PO
== END ==
LOC: M ONCR 07:42
PROVIDERS: ATTEND General Practice
DX: R91.1 Solitary pulmonary nodule (principal); G89.29 Other chronic pain; M40.204 Unspecified kyphosis, thoracic region; Z85.118 Personal history of other malignant neoplasm of bronchus and lung; F17.210 Nicotine dependence, cigarettes, uncomplicated; J44.9 Chronic obstructive pulmonary disease, unspecified; Z71.2 Person consulting for explanation of examination or test findings; Z79.51 Long term (current) use of inhaled steroids; Z79.82 Long term (current) use of aspirin; Z79.899 Other long term (current) drug therapy; Z80.1 Family history of malignant neoplasm of trachea, bronchus and lung; Z80.6 Family history of leukemia; Z88.8 Allergy status to other drugs, medicaments and biological substances; Z90.49 Acquired absence of other specified parts of digestive tract; Z90.710 Acquired absence of both cervix and uterus; Z92.3 Personal history of irradiation

== ENCOUNTER 2023-06-30 15:31 | Outpatient (RCR) | payer MEDICAID, MEDICARE ==
[~2023-06-30 15:31] MED LIST changes: +BENZ200C70 PO
[2023-07-11] MEDS ORDERED: ROSU10TA61 PO (14:49)
[2023-07-11] MEDS ORDERED: ROPI1TAB73 PO (14:49)
[2023-07-11] MEDS ORDERED: MACR100C43 PO (14:50)
[2023-07-11] MEDS ORDERED: SERO1TAB3 PO (14:51)
[2023-07-11] MEDS ORDERED: MORP1SOL4 PO (16:55)
[2023-07-12] MEDS ORDERED: NS3NEB INH (10:50)
== END 2023-07-11 ==
LOC: M ONCR 15:31
PROVIDERS: ATTEND General Practice
DX: Z51.0 Encounter for antineoplastic radiation therapy (principal); C34.32 Malignant neoplasm of lower lobe, left bronchus or lung

== ENCOUNTER → 2023-07-11 | Outpatient (CLI) | payer MEDICARE ==
[~2023-07-11] VITALS: Ht 137.2 cm; Wt 37.5 kg
[~2023-07-11] MED LIST changes: +MACR100C43 PO; +MORP1SOL4 PO; +NS3NEB INH; +ROPI1TAB73 PO; +ROSU10TA61 PO; +SERO1TAB3 PO
[2023-07-11 14:42] VITALS: BP 150/90; O2SAT 81
[2023-07-11 14:52] VITALS: O2SAT 91
== END ==
LOC: M PAL 14:12
PROVIDERS: ATTEND Nurse Practitioner Adult Health
DX: C34.32 Malignant neoplasm of lower lobe, left bronchus or lung (principal); G89.29 Other chronic pain; R51.9 Headache, unspecified; M54.9 Dorsalgia, unspecified; M25.559 Pain in unspecified hip; G62.9 Polyneuropathy, unspecified; R06.09 Other forms of dyspnea; R44.1 Visual hallucinations; J44.9 Chronic obstructive pulmonary disease, unspecified; M40.204 Unspecified kyphosis, thoracic region; R53.83 Other fatigue; Z51.5 Encounter for palliative care; Z66 Do not resuscitate; Z92.3 Personal history of irradiation; Z79.51 Long term (current) use of inhaled steroids; Z79.82 Long term (current) use of aspirin; Z79.899 Other long term (current) drug therapy; Z80.1 Family history of malignant neoplasm of trachea, bronchus and lung; Z80.6 Family history of leukemia; Z88.8 Allergy status to other drugs, medicaments and biological substances; Z90.710 Acquired absence of both cervix and uterus; Z90.49 Acquired absence of other specified parts of digestive tract